=== PATIENT | female | born 1955 | race Caucasian/White ===

== ENCOUNTER 2019-12-19 17:37 | Emergency (ER) | payer MEDICARE, MEDICAID, SELFPAY ==
[2019-12-19] VITALS (7 sets, daily range): BP systolic 124–180; BP diastolic 72–108; PULSE 87–109; RESP 16–18; TEMP 37.6–38.4; O2SAT 90–98
--- NOTE | 2019-12-19 17:54 | CTR_ITS ---
PROCEDURE INFORMATION: Exam: CT Abdomen And Pelvis Without Contrast Exam date and time: 12/19/2019 7:13 PM Age: 64 years old Clinical indication: Abdominal pain; Generalized; Additional info: Fever TECHNIQUE: Imaging protocol: Computed tomography of the abdomen and pelvis without contrast. Radiation optimization: All CT scans at this facility use at least one of these dose optimization techniques: automated exposure control; mA and/or kV adjustment per patient size (includes targeted exams where dose is matched to clinical indication); or iterative reconstruction. COMPARISON: No relevant prior studies available. RADIATION DOSE METRICS: Total DLP (mGy-cm): 671.98 FINDINGS: Lungs: There is bibasilar ground-glass opacity compatible with atelectasis versus mild pneumonitis. Liver: Unremarkable.No mass. Gallbladder and bile ducts: Normal. No calcified stones. No ductal dilation. Pancreas: Normal. No ductal dilation. Spleen: Normal. No splenomegaly. Adrenals: Normal. No mass. Kidneys and ureters: The right kidney is normal. There is moderate left hydronephrosis. There is a 4 mm calculus left ureter image 44 at the level of the L3 vertebral body. No additional calculi are identified in the kidneys ureters or bladder. Stomach and bowel: There is no evidence of intestinal perforation or obstruction. There is no evidence of intestinal perforation or obstruction. There is no evidence of colitis/diverticulitis. Appendix: A normal appendix is identified. Intraperitoneal space: Unremarkable. No free air. No significant fluid collection. Vasculature: Unremarkable.No abdominal aortic aneurysm. Lymph nodes: Unremarkable.No enlarged lymph nodes. Bladder: Unremarkable as visualized. Reproductive: Unremarkable as visualized. Bones/joints: There is severe degenerative changes in the lower lumbar spine. There is degenerative grade 1 spondylolisthesis of L5 on S1. No acute bony fracture. Soft tissues: There is a fat-containing umbilical hernia. CT/CT abdomen pelvis wo con [id number] IMPRESSION: 1. There is bibasilar ground-glass opacity compatible with atelectasis versus mild pneumonitis. 2. Moderate left hydronephrosis with a 4 mm calculus mid left ureter. Radiation Dose CTDIVOL = (mGy): DLP = 671.98 (mGy-cm)
--- NOTE | 2019-12-19 17:54 | XRR_ITS ---
PROCEDURE INFORMATION: Exam: XR Chest, 1 View Exam date and time: 12/19/2019 7:32 PM Age: 64 years old Clinical indication: Fever TECHNIQUE: Imaging protocol: XR of the chest Views: Frontal portable upright view of the chest. COMPARISON: No relevant prior studies available. FINDINGS: Lungs: The lungs are clear bilaterally. The pulmonary vasculature is normal. Pleural space: No pleural effusion. No pneumothorax. Heart/Mediastinum: The heart is normal in size and contour. Bones/joints: Degenerative disk disease is present at mid-lower thoracic spine disk levels. XR/XR chest 1V portable [id number] IMPRESSION: No acute cardiopulmonary abnormality identified.
--- NOTE | 2019-12-19 17:58 | ED_ITS ---
HPI - Abdominal Pain General: Chief Complaint: Abdominal Pain Stated Complaint: ABDOMINAL PAIN Time Seen by Provider: 12/19/19 17:42 Source: patient and EMS Mode of arrival: EMS Limitations: no limitations History of Present Illness: HPI narrative: 64-year-old female states she had abdominal pain over the last 2 days. She states she seen at [facility] 2 days ago and was diagnosed with a kidney stone and seen there yesterday and diagnosed with a UTI. Patient is currently on oral antibiotics. States her pain is worsened and her urine is gotten much darker had a temperature of 101 today. She has had some nausea but no vomiting. Associated Symptoms: Reports dysuria and fever(s) Review of Systems Const: Reports: fever(s) Eyes: Denies: blurry vision or eye discomfort ENMT: Denies: throat pain or dental pain Card: Denies: chest pain Resp: Denies: dyspnea GI: Reports: abdominal pain : Reports: flank pain and dysuria Musc: Denies: neck pain or back pain Skin/Breast: Denies: rash Neuro: Denies: headache(s) Psych: Denies: depression Jose/Lymph: Denies: easy bruising All/Imm: Denies: urticaria PFSH ED 2 PFSH: Medical History Generalized anxiety disorder Major depressive disorder, recurrent, moderate Social History Smoking and tobacco status: never smoked Physical Exam Const: COMMON NORMALS: no acute distress, patient oriented x3 and healthy appearing HENMT: COMMON NORMALS: normocephalic and atraumatic HEAD & SCALP: normocephalic and atraumatic Eye: COMMON NORMALS: Equal, round and reactive pupils present and EOMs intact bilaterally PUPIL: Yes Equal, round and reactive pupils present Neck/C-Spine: COMMON NORMALS: full ROM and supple Chest: COMMONS NORMALS: normal inspection of the chest and normal palpation of entire chest wall Resp: COMMON NORMALS: normal respiratory effort, No retractions, No use of accessory muscles and clear to auscultation bilaterally AUSCULTATION: clear to auscultation bilaterally Cardio: COMMON NORMALS: regular rate, regular rhythm and No murmurs present (Cardio) RATE: regular rate RHYTHM: regular rhythm GI: COMMON NORMALS: Normal to inspection, nondistended, normoactive bowel sounds present, Soft to palpation and no masses PALPATION: Yes Soft to palpation and Yes Tenderness to palpation present (GI) Details: LLQ Extremity: COMMON NORMALS: normal to inspection and full ROM Neuro: COMMON NORMALS: patient oriented x3, moves all extremities and no focal motor deficits Psych: COMMON NORMALS: mental status grossly normal, Normal thought process present and cooperative THOUGHT PROCESS: Normal thought process present Skin: COMMON NORMALS: no rashes or lesions noted and no wounds GENERAL SKIN EXAM: no rashes or lesions noted Course Vital Signs: Vital signs: Vital Signs Temperature 99.6 F 12/19/19 21:11 Pulse Rate 87 12/19/19 22:39 Respiratory Rate 16 12/19/19 22:39 Blood Pressure 124/72 12/19/19 22:39 Pulse Oximetry 97 12/19/19 22:39 MDM - Abdominal Pain MDM Narrative: Medical decision making narrative: Patient presents with a kidney stone along with urinary tract infection. Dr. Pizano currently is out of town until December 22 and will transfer to [facility] for higher level of care as patient does need a urologist for the stone as has not moved in 4 days and has an infection. Patient has been stable while here and given IV antibiotics. I spoke to hospitalist Dr. Blair at [facility] and will transfer there. Lab Data: Labs: Lab Results 12/19/19 12/19/19 12/19/19 Range/Units 18:16 18:16 18:16 WBC 10.1 H (4.0-10.0) 10^3/ uL RBC 4.23 (4.1-5.3) 10^6/u L Hgb 12.7 (11.5-15.3) g/dL Hct 39.0 (37.0-47.0) % MCV 92.2 (81-99) fL MCH 30.0 (28.0-34.0) pg MCHC 32.6 (30.0-36.0) g/dL RDW 12.2 (12.1-15.1) % Plt Count 255 (130-400) 10^3/c mm MPV 9.5 (7.4-10.4) fL Neut % (Auto) 80.2 % Lymph % (Auto) 9.8 % [place] % (Auto) 9.5 % Eos % (Auto) 0.0 % Baso % (Auto) 0.2 % Neut # (Auto) 8.09 H (1.8-7.7) 10^3/u L Lymph # (Auto) 1.0 (0.8-4.8) 10^3/u L [place] # (Auto) 1.0 H (0.2-0.9) 10^3/u L Eos # (Auto) 0.0 (0.0-0.8) 10^3/u L Baso # (Auto) 0.0 (0.0-0.1) 10^3/u L Nucleated RBC % (a uto) 0 % Nucleated RBCs # 0.0 /100WBC Sodium 134 L (136-145) mmol/L Potassium 4.2 (3.5-5.1) mmol/L Chloride 97 L (98-107) mmol/L Carbon Dioxide 25 (22-29) mmol/L Anion Gap 16.2 (5-19) BUN 15 (8-23) mg/dL Creatinine 1.0 H (0.5-0.9) mg/dL GFR Calculation 55.6 L (90-130) mL/min Glucose 136 H (65-115) mg/dL Calculated Osmolal ity 276 L (285-295) mOsm/k g Lactate 1.2 (0.5-2.2) mmol/L Calcium 9.7 (8.5-10.5) mg/dL Total Bilirubin 0.4 (0.15-1.2) mg/dL AST 26 (0-32) U/L ALT 25 (0-33) U/L Alkaline Phosphata se 123 H (35-105) IU/L Total Protein 7.5 (6.6-8.7) g/dL Albumin 4.1 (3.5-5.2) g/dL Globulin 3.4 (1.3-4.6) g/dL Lipase 28 (13-60) U/L Urine Color (Yellow) Urine Appearance (CLEAR) Urine pH (5-7) Ur Specific Gravit y (1.005-1.030) Urine Protein (Negative) Urine Glucose (UA) (Normal) Urine Ketones (Negative) Urine Blood (Negative) Urine Nitrate (Negative) Urine Bilirubin (NEGATIVE) Urine Urobilinogen (Negative) mg/dL Ur Leukocyte Lory ase (Negative) Urine RBC (0-2) /hpf Urine WBC (0-5) /hpf Ur Squamous Epith Cells (0-5) Amorphous Sediment Urine Bacteria (NONE) 12/19/19 Range/Units 20:40 WBC (4.0-10.0) 10^3/ uL RBC (4.1-5.3) 10^6/u L Hgb (11.5-15.3) g/dL Hct (37.0-47.0) % MCV (81-99) fL MCH (28.0-34.0) pg MCHC (30.0-36.0) g/dL RDW (12.1-15.1) % Plt Count (130-400) 10^3/c mm MPV (7.4-10.4) fL Neut % (Auto) % Lymph % (Auto) % [place] % (Auto) % Eos % (Auto) % Baso % (Auto) % Neut # (Auto) (1.8-7.7) 10^3/u L Lymph # (Auto) (0.8-4.8) 10^3/u L [place] # (Auto) (0.2-0.9) 10^3/u L Eos # (Auto) (0.0-0.8) 10^3/u L Baso # (Auto) (0.0-0.1) 10^3/u L Nucleated RBC % (a uto) % Nucleated RBCs # /100WBC Sodium (136-145) mmol/L Potassium (3.5-5.1) mmol/L Chloride (98-107) mmol/L Carbon Dioxide (22-29) mmol/L Anion Gap (5-19) BUN (8-23) mg/dL Creatinine (0.5-0.9) mg/dL GFR Calculation (90-130) mL/min Glucose (65-115) mg/dL Calculated Osmolal ity (285-295) mOsm/k g Lactate (0.5-2.2) mmol/L Calcium (8.5-10.5) mg/dL Total Bilirubin (0.15-1.2) mg/dL AST (0-32) U/L ALT (0-33) U/L Alkaline Phosphata se (35-105) IU/L Total Protein (6.6-8.7) g/dL Albumin (3.5-5.2) g/dL Globulin (1.3-4.6) g/dL Lipase (13-60) U/L Urine Color Yellow (Yellow) Urine Appearance Cloudy (CLEAR) Urine pH 5 (5-7) Ur Specific Gravit y 1.020 (1.005-1.030) Urine Protein Neg (Negative) Urine Glucose (UA) Norm (Normal) Urine Ketones 2+ H (Negative) Urine Blood 3+ H (Negative) Urine Nitrate Negative (Negative) Urine Bilirubin Neg (NEGATIVE) Urine Urobilinogen Norm (Negative) mg/dL Ur Leukocyte Lory ase 2+ H (Negative) Urine RBC 5-10 H (0-2) /hpf Urine WBC 15-25 H (0-5) /hpf Ur Squamous Epith Cells 15-25 H (0-5) Amorphous Sediment Not Reportable Urine Bacteria 1+ H (NONE) Imaging Data ^: CT Abd/Pel: Radiologist's impression: [place] [address] CT Scan Report Signed Patient: Ijeoma Schroeder Unit #: [id number] : 1955 Age/Sex: 64 / F ADM Date: 12/19/19 Loc: ER Room/Bed: Attending Dr: Ordering Provider/Ordering MD: Jules Manning MD Date of Service: 12/19/19 Procedure(s): CT abdomen pelvis [facility] [address] Accession Number(s): [id number] Report Number: [id number] PROCEDURE INFORMATION: Exam: CT Abdomen And Pelvis Without Contrast Exam date and time: 12/19/2019 7:13 PM Age: 64 years old Clinical indication: Abdominal pain; Generalized; Additional info: Fever TECHNIQUE: Imaging protocol: Computed tomography of the abdomen and pelvis without contrast. Radiation optimization: All CT scans at this facility use at least one of these dose optimization techniques: automated exposure control; mA and/or kV adjustment per patient size (includes targeted exams where dose is matched to clinical indication); or iterative reconstruction. COMPARISON: No relevant prior studies available. RADIATION DOSE METRICS: Total DLP (mGy-cm): 671.98 FINDINGS: Lungs: There is bibasilar ground-glass opacity compatible with atelectasis versus mild pneumonitis. Liver: Unremarkable.No mass. Gallbladder and bile ducts: Normal. No calcified stones. No ductal dilation. Pancreas: Normal. No ductal dilation. Spleen: Normal. No splenomegaly. Adrenals: Normal. No mass. Kidneys and ureters: The right kidney is normal. There is moderate left hydronephrosis. There is a 4 mm calculus left ureter image 44 at the level of the L3 vertebral body. No additional calculi are identified in the kidneys ureters or bladder. Stomach and bowel: There is no evidence of intestinal perforation or obstruction. There is no evidence of intestinal perforation or obstruction. There is no evidence of colitis/diverticulitis. Appendix: A normal appendix is identified. Intraperitoneal space: Unremarkable. No free air. No significant fluid collection. Vasculature: Unremarkable.No abdominal aortic aneurysm. Lymph nodes: Unremarkable.No enlarged lymph nodes. Bladder: Unremarkable as visualized. Reproductive: Unremarkable as visualized. Bones/joints: There is severe degenerative changes in the lower lumbar spine. There is degenerative grade 1 spondylolisthesis of L5 on S1. No acute bony fracture. Soft tissues: There is a fat-containing umbilical hernia. CT/CT abdomen pelvis wo con [id number] IMPRESSION: 1. There is bibasilar ground-glass opacity compatible with atelectasis versus mild pneumonitis. 2. Moderate left hydronephrosis with a 4 mm calculus mid left ureter. Discharge Plan Discharge Patient Disposition: Xfer Other Clinical Impression: Cystitis, Kidney stone Condition: Stable Coding Level of Care Code ED Product Safety Administrator for Chg Fwd Exam Comprehensive
[2019-12-19 18:30] LABS: Basophils % 0.2 %; Hemoglobin 12.7 g/dL (11.5-15.3); Lymphocytes % 9.8 %; Mean Corpuscular HGB Conc 32.6 g/dL (30.0-36.0); Mean Corpuscular Volume 92.2 fL (81-99); Mean Platelet Volume 9.5 fL (7.4-10.4); Monocytes % 9.5 %; Neutrophils # 8.09 10^3/uL (1.8-7.7); Neutrophils % 80.2 %; Nucleated Red Blood Cells % 0 %; Platelet Count 255 10^3/cmm (130-400); Red Blood Count 4.23 10^6/uL (4.1-5.3); Red Cell Distribution Width 12.2 % (12.1-15.1); White Blood Count 10.1 10^3/uL (4.0-10.0)
[2019-12-19] MEDS: sodium chloride 0.9% 1,000 ML 999 ML IV (18:36)
[2019-12-19 18:43] LABS: Alanine Aminotransferase 25 U/L (0-33); Albumin Level 4.1 g/dL (3.5-5.2); Alkaline Phosphatase 123 IU/L (35-105); Anion Gap 16.2 (5-19); Aspartate Amino Transferase 26 U/L (0-32); Blood Urea Nitrogen 15 mg/dL (8-23); Calcium 9.7 mg/dL (8.5-10.5); Carbon Dioxide 25 mmol/L (22-29); Chloride 97 mmol/L (98-107); Globulin 3.4 g/dL (1.3-4.6); Glomerular Filtration Rate 55.6 mL/min (90-130); Glucose 136 mg/dL (65-115); Lipase 28 U/L (13-60); Osmolality Calculated 276 mOsm/kg (285-295); Potassium 4.2 mmol/L (3.5-5.1); Sodium 134 mmol/L (136-145); Total Bilirubin 0.4 mg/dL (0.15-1.2); Total Protein 7.5 g/dL (6.6-8.7)
[2019-12-19 18:44] LABS: Lactate (Lactic Acid level) 1.2 mmol/L (0.5-2.2)
[2019-12-19] MEDS: morphine 4 mg/mL SDV 1 mL IVP (20:32)
[2019-12-19] MEDS: ondansetron 2 mg/ML SDV 2 mL 4 MG IVP (20:33)
[2019-12-19 21:11] LABS: Glucose Urine UA Norm (Normal); Ketones Urine 2+ (Negative); Protein Urine Neg (Negative); Urine Appearance Cloudy (CLEAR); Urine Color Yellow (Yellow); pH Urine 5 (5-7)
[2019-12-19 21:12] LABS: Add Urine Microscopic? YES; Bilirubin Urine Neg (NEGATIVE); Blood Urine 3+ (Negative); Leukocyte Esterase Urine 2+ (Negative); Nitrate Urine Negative (Negative); Urobilinogen Urine Norm (Negative)
[2019-12-19 21:14] LABS: Add Urine Culture? No; Bacteria Urine 1+; Squamous Epithelial Cell Urine 15-25 (0-5); WBC Urine 15-25 /hpf (0-5)
[2019-12-19] MEDS: cefTRIAXone 1,000 MG in sodium chloride 0.9% (plus) 50 ML 100 MG IV (22:40)
[2019-12-20 00:16] VITALS: BP 124/91; PULSE 78; RESP 16; O2SAT 97
[2019-12-20 00:51] VITALS: BP 130/80
== END 2019-12-20 00:58 | disposition other institution (70) ==
PROVIDERS: Emergency Provider Emergency Medicine
DX: N30.90 Cystitis, unspecified without hematuria (principal); N20.0 Calculus of kidney
CPT/HCPCS: 12345; 71045; 74176; 80053; 81001; 81003; 83605; 83690; 85025; 87040; 87086; 96365; 96375; 99283; 99285; J0696; J2270; J2405; J7030

== ENCOUNTER → 2020-01-07 09:37 | Outpatient (BNVA) | payer MEDICARE, OTHER, SELFPAY | PROVIDERS: Visit Provider Nurse Practitioner Family | DX: E78.5 Hyperlipidemia, unspecified (principal) | CPT/HCPCS: 80053; 80061 ==

== ENCOUNTER → 2020-01-14 07:47 | Outpatient (BNVA) | payer MEDICARE, SELFPAY | PROVIDERS: Visit Provider Nurse Practitioner | DX: F41.1 Generalized anxiety disorder (principal); F33.1 Major depressive disorder, recurrent, moderate | CPT/HCPCS: 90832; 99213 ==

== ENCOUNTER 2020-04-02 14:30 | Outpatient (CLI) | payer MEDICARE, MEDICAID, SELFPAY ==
--- NOTE | 2020-04-02 14:39 | CT_ITS ---
WS: [id number] CT scan of the head, 04/02/2020 Clinical Data: R51.9 - Headache, unspecified Comparison: None. DLP: 992.[address] scans at [facility] use at least one of these dose optimization techniques: automat ed exposure control; mA and/or kV adjustment per patient size (includes targeted exams where dose is matched to clinical indication); or iterative reconstruction. Findings: The ventricular system is moderately dilated without shift. No recent infarct or hemorrhage is seen. There are no abnormal intracerebral masses. The cerebellum and brainstem are not remarkable. Bony windows of the skull and skull base show no fractures or erosions. The mastoid air cells, paralegal internship al auditory canals, sella turcica, intraorbital contents, and paranasal sinuses are unremarkable. CT/CT head wo con* [id number] Impression: Mild cerebral atrophy.
== END 2020-04-02 14:31 | disposition home or self-care (01) ==
LOC: RADWPI 14:35
PROVIDERS: PCP Nurse Practitioner Family; Visit Provider Nurse Practitioner Family
DX: R51.9 Headache, unspecified (principal)
CPT/HCPCS: 70450

== ENCOUNTER 2020-04-22 15:29 | Outpatient (CLI) | payer MEDICARE, MEDICAID, SELFPAY ==
--- NOTE | 2020-04-22 15:00 | MM_ITS ---
WS: [id number] BILATERAL DIGITAL SCREENING MAMMOGRAPHY WITH CAD CLINICAL INFORMATION: screening mammogram HISTORY: Screening mammogram. No current complaints. COMPARISON: None. TECHNIQUE: Bilateral CC and MLO views. FINDINGS: The breasts are composed of heterogeneous fibroglandular density tissue, which can limit the detectio n of small underlying mass lesions. No suspicious mass, asymmetry, calcifications, or architectural d istortion. No evidence of malignancy. Benign punctate calcifications. Incidental intramammary lymph n odes. MM/[place] [id number] IMPRESSION: BI-RADS: 2-Benign FOLLOW UP: 1 Year Follow-up Recommend return to annual screening mammography.
== END 2020-04-22 15:30 | disposition home or self-care (01) ==
LOC: RADSHAW 15:34
PROVIDERS: PCP Nurse Practitioner Family; Visit Provider Nurse Practitioner Family
DX: Z12.31 Encounter for screening mammogram for malignant neoplasm of breast (principal)
CPT/HCPCS: 77067

== ENCOUNTER → 2020-05-14 10:41 | Outpatient (BNVA) | payer MEDICARE, MEDICAID, SELFPAY | PROVIDERS: PCP Nurse Practitioner Family; Referring Provider Nurse Practitioner Family; Visit Provider Anesthesiology | DX: M50.30 Other cervical disc degeneration, unspecified cervical region (principal); M51.36 Other intervertebral disc degeneration, lumbar region; M47.817 Spondylosis without myelopathy or radiculopathy, lumbosacral region; M54.9 Dorsalgia, unspecified | CPT/HCPCS: 99204; 99205 ==

== ENCOUNTER → 2020-06-09 10:52 | Outpatient (BNVA) | payer MEDICARE, MEDICAID, SELFPAY | PROVIDERS: PCP Nurse Practitioner Family; Visit Provider Anesthesiology | DX: G89.29 Other chronic pain (principal); M51.36 Other intervertebral disc degeneration, lumbar region; M47.817 Spondylosis without myelopathy or radiculopathy, lumbosacral region; M50.30 Other cervical disc degeneration, unspecified cervical region; M54.9 Dorsalgia, unspecified; Z79.891 Long term (current) use of opiate analgesic | CPT/HCPCS: 80061; 83036; 99214 ==

== ENCOUNTER → 2020-07-15 09:23 | Outpatient (BNVA) | payer MEDICARE, MEDICAID, SELFPAY ==
[2020-06-17 14:32] VITALS: BP 136/88; BMI 27.9
== END ==
PROVIDERS: PCP Nurse Practitioner Family; Visit Provider Anesthesiology
DX: M51.36 Other intervertebral disc degeneration, lumbar region (principal); M54.9 Dorsalgia, unspecified; M50.30 Other cervical disc degeneration, unspecified cervical region; M47.817 Spondylosis without myelopathy or radiculopathy, lumbosacral region; Z79.891 Long term (current) use of opiate analgesic
CPT/HCPCS: 99213

== ENCOUNTER → 2020-07-21 07:49 | Outpatient (BNVA) | payer MEDICARE, MEDICAID, SELFPAY ==
[2020-07-15 13:55] VITALS: BP 136/88; BMI 27.9
== END ==
PROVIDERS: PCP Nurse Practitioner Family; Visit Provider Nurse Practitioner
DX: F33.1 Major depressive disorder, recurrent, moderate (principal); F41.1 Generalized anxiety disorder; F43.12 Post-traumatic stress disorder, chronic; F90.0 Attention-deficit hyperactivity disorder, predominantly inattentive type
CPT/HCPCS: 99214

== ENCOUNTER → 2020-07-30 09:45 | Outpatient (BNVA) | payer MEDICARE, MEDICAID, SELFPAY ==
[2020-07-15 13:55] VITALS: BP 136/88; BMI 27.9
== END ==
PROVIDERS: PCP Nurse Practitioner Family; Visit Provider Anesthesiology
DX: G89.29 Other chronic pain (principal); M54.5 Low back pain; M70.61 Trochanteric bursitis, right hip; Y93.9 Activity, unspecified; Z79.891 Long term (current) use of opiate analgesic
CPT/HCPCS: 20610; 62323; 77002; 77003; J1030; J3490

== ENCOUNTER → 2020-08-18 09:00 | Outpatient (BNVA) | payer MEDICARE, MEDICAID, SELFPAY ==
[2020-07-15 13:55] VITALS: BP 136/88; BMI 27.9
== END ==
PROVIDERS: PCP Nurse Practitioner Family; Visit Provider Nurse Practitioner
DX: F33.1 Major depressive disorder, recurrent, moderate (principal); F41.1 Generalized anxiety disorder; F90.0 Attention-deficit hyperactivity disorder, predominantly inattentive type; F43.12 Post-traumatic stress disorder, chronic
CPT/HCPCS: 99214

== ENCOUNTER → 2020-09-18 13:01 | Outpatient (BNVA) | payer MEDICARE, MEDICAID, SELFPAY ==
[2020-07-15 13:55] VITALS: BP 136/88; BMI 27.9
== END ==
PROVIDERS: PCP Nurse Practitioner Family; Visit Provider Anesthesiology
DX: M51.36 Other intervertebral disc degeneration, lumbar region (principal); M54.9 Dorsalgia, unspecified; M47.817 Spondylosis without myelopathy or radiculopathy, lumbosacral region; M50.30 Other cervical disc degeneration, unspecified cervical region; Z79.891 Long term (current) use of opiate analgesic
CPT/HCPCS: 99214

== ENCOUNTER → 2020-10-13 09:01 | Outpatient (BNVA) | payer MEDICARE, MEDICAID, SELFPAY ==
[2020-07-15 13:55] VITALS: BP 136/88; BMI 27.9
== END ==
PROVIDERS: PCP Nurse Practitioner Family; Referring Provider Nurse Practitioner Family; Visit Provider Specialist
DX: F33.1 Major depressive disorder, recurrent, moderate (principal); F41.1 Generalized anxiety disorder; F43.12 Post-traumatic stress disorder, chronic; F90.0 Attention-deficit hyperactivity disorder, predominantly inattentive type; R41.3 Other amnesia; H81.10 Benign paroxysmal vertigo, unspecified ear; R51.9 Headache, unspecified
CPT/HCPCS: 99214; 96116; 99205

== ENCOUNTER → 2020-11-17 09:42 | Outpatient (BNVA) | payer MEDICARE, MEDICAID, SELFPAY ==
[2020-07-15 13:55] VITALS: BP 136/88; BMI 27.9
== END ==
PROVIDERS: PCP Nurse Practitioner Family; Visit Provider Anesthesiology
DX: G89.29 Other chronic pain (principal); M51.36 Other intervertebral disc degeneration, lumbar region; M47.817 Spondylosis without myelopathy or radiculopathy, lumbosacral region; M54.9 Dorsalgia, unspecified; M50.30 Other cervical disc degeneration, unspecified cervical region; Z79.891 Long term (current) use of opiate analgesic
CPT/HCPCS: 99213; 99214

== ENCOUNTER → 2020-11-18 07:24 | Outpatient (BNVA) | payer MEDICARE, MEDICAID, SELFPAY ==
[2020-11-17 10:15] VITALS: BP 136/88; BMI 27.9
== END ==
PROVIDERS: PCP Nurse Practitioner Family; Visit Provider Nurse Practitioner
DX: F41.1 Generalized anxiety disorder (principal); F33.1 Major depressive disorder, recurrent, moderate
CPT/HCPCS: 99214

== ENCOUNTER → 2020-12-15 09:26 | Outpatient (BNVA) | payer MEDICARE, MEDICAID, SELFPAY ==
[2020-12-14 07:54] VITALS: BP 136/88; BMI 27.9
== END ==
PROVIDERS: PCP Nurse Practitioner Family; Visit Provider Nurse Practitioner Family
DX: R53.83 Other fatigue (principal); R35.0 Frequency of micturition; M51.36 Other intervertebral disc degeneration, lumbar region; M47.817 Spondylosis without myelopathy or radiculopathy, lumbosacral region
CPT/HCPCS: 80053; 81000; 84443; 85025

== ENCOUNTER → 2020-12-16 07:13 | Outpatient (BNVA) | payer MEDICARE, MEDICAID, SELFPAY ==
[2020-12-14 07:54] VITALS: BP 136/88; BMI 27.9
== END ==
PROVIDERS: PCP Nurse Practitioner Family; Visit Provider Nurse Practitioner
DX: F41.1 Generalized anxiety disorder (principal); F33.1 Major depressive disorder, recurrent, moderate; F90.0 Attention-deficit hyperactivity disorder, predominantly inattentive type
CPT/HCPCS: 99214

== ENCOUNTER → 2021-01-07 09:28 | Outpatient (BNVA) | payer MEDICARE, MEDICAID, SELFPAY ==
[2020-12-14 07:54] VITALS: BP 136/88; BMI 27.9
== END ==
PROVIDERS: PCP Nurse Practitioner Family; Visit Provider Anesthesiology
DX: M70.62 Trochanteric bursitis, left hip (principal); Y93.9 Activity, unspecified; Z79.891 Long term (current) use of opiate analgesic; Z87.891 Personal history of nicotine dependence; F41.1 Generalized anxiety disorder; F90.0 Attention-deficit hyperactivity disorder, predominantly inattentive type
CPT/HCPCS: 20610; 77002; 80061; 83036; J1030; J3490

== ENCOUNTER → 2021-01-28 11:02 | Outpatient (BNVA) | payer MEDICARE, MEDICAID, SELFPAY ==
[2021-01-08 11:31] VITALS: BP 138/83; BMI 26.3
== END ==
PROVIDERS: PCP Nurse Practitioner Family; Visit Provider Anesthesiology
DX: G89.29 Other chronic pain (principal); M51.36 Other intervertebral disc degeneration, lumbar region; M47.817 Spondylosis without myelopathy or radiculopathy, lumbosacral region; M50.30 Other cervical disc degeneration, unspecified cervical region; Z79.891 Long term (current) use of opiate analgesic
CPT/HCPCS: 99214

== ENCOUNTER → 2021-02-09 10:06 | Outpatient (BNVA) | payer OTHER, SELFPAY ==
[2021-01-28 11:31] VITALS: BP 138/83; BMI 26.3
== END ==
PROVIDERS: PCP Nurse Practitioner Family; Visit Provider Nurse Practitioner Family
DX: R79.89 Other specified abnormal findings of blood chemistry (principal); E03.9 Hypothyroidism, unspecified
CPT/HCPCS: 84443

== ENCOUNTER 2021-03-31 10:43 | Outpatient (CLI) | payer MEDICARE, MEDICAID, SELFPAY ==
[2021-01-28 11:31] VITALS: BP 138/83; BMI 26.3
--- NOTE | 2021-03-31 10:15 | US_ITS ---
WS: [id number] THYROID ULTRASOUND HISTORY: R79.89 - Other specified abnormal findings of blood chemi... COMPARISON: None available. Right lobe: 1.8 cm x 1.6 cm x 4.1 cm (w x ap x l). Volume: 6.3 cm3. Mildly enlarged heterogeneous gland. Nearly isoechoic nodule in the mid gland measures 1.0 x 1.1 x 1.3 cm. Increased peripheral vascularit y. No calcification. There is an additional hyperechoic nodule in the inferior gland measuring 0.6 x 0.5 x 0.6 cm. No calcifications. Left lobe: 1.4 cm x 1.6 cm x 5.3 cm (w x ap x l). Volume: 5.9 cm3. Normal size gland. Dense calcification in the superior pole with posterior shadowing. Posterior shado wing is obscuring the thyroid or any nodule posteriorly. This area of abnormality measures 0.8 x 0.1 x 1.0 cm. Isthmus: 0.3 cm. US/US thyroid [id number] IMPRESSION: 1. Bilateral thyroid nodules. The most concerning nodule is in the superior po le of the LEFT gland which contains very dense calcification. The dense calcifi cation shadowing is obscuring the posterior nodule. Recommend yearly evaluation of the thyroid to evaluate for any progression in size. 2. No adenopathy.
== END 2021-03-31 10:44 | disposition home or self-care (01) ==
LOC: RAD 10:47
PROVIDERS: PCP Nurse Practitioner Family; Visit Provider Nurse Practitioner Family
DX: R79.89 Other specified abnormal findings of blood chemistry (principal); E04.2 Nontoxic multinodular goiter
CPT/HCPCS: 76536

== ENCOUNTER → 2021-05-10 07:51 | Outpatient (BNVA) | payer MEDICARE, OTHER, SELFPAY ==
[2021-01-28 11:31] VITALS: BP 138/83; BMI 26.3
== END ==
PROVIDERS: PCP Nurse Practitioner Family; Visit Provider Nurse Practitioner
DX: F41.1 Generalized anxiety disorder (principal); F33.1 Major depressive disorder, recurrent, moderate; F90.0 Attention-deficit hyperactivity disorder, predominantly inattentive type; F43.12 Post-traumatic stress disorder, chronic
CPT/HCPCS: 99214

== ENCOUNTER → 2021-05-20 11:17 | Outpatient (BNVA) | payer MEDICARE, MEDICAID, SELFPAY ==
[2021-01-28 11:31] VITALS: BP 138/83; BMI 26.3
== END ==
PROVIDERS: PCP Nurse Practitioner Family; Visit Provider Nurse Practitioner Family
DX: E03.9 Hypothyroidism, unspecified (principal)
CPT/HCPCS: 84443

== ENCOUNTER → 2021-06-08 09:43 | Outpatient (BNVA) | payer MEDICARE, MEDICAID, SELFPAY ==
[2021-01-28 11:31] VITALS: BP 138/83; BMI 26.3
== END ==
PROVIDERS: PCP Nurse Practitioner Family; Visit Provider Anesthesiology
DX: G89.29 Other chronic pain (principal); M51.36 Other intervertebral disc degeneration, lumbar region; M47.817 Spondylosis without myelopathy or radiculopathy, lumbosacral region; M50.30 Other cervical disc degeneration, unspecified cervical region; Z79.891 Long term (current) use of opiate analgesic
CPT/HCPCS: 99214

== ENCOUNTER → 2021-06-14 10:00 | Outpatient (BNVA) | payer MEDICARE, MEDICAID, SELFPAY ==
[2021-01-28 11:31] VITALS: BP 138/83; BMI 26.3
== END ==
PROVIDERS: PCP Nurse Practitioner Family; Visit Provider Nurse Practitioner
DX: F41.1 Generalized anxiety disorder (principal); F33.1 Major depressive disorder, recurrent, moderate; F90.0 Attention-deficit hyperactivity disorder, predominantly inattentive type; F43.12 Post-traumatic stress disorder, chronic
CPT/HCPCS: 99214

== ENCOUNTER → 2021-07-27 14:19 | Outpatient (BNVA) | payer MEDICARE, MEDICAID, SELFPAY ==
[2021-06-29 14:55] VITALS: BP 138/83; BMI 26.3
== END ==
PROVIDERS: PCP Nurse Practitioner Family; Visit Provider Specialist
DX: F41.1 Generalized anxiety disorder (principal); F33.1 Major depressive disorder, recurrent, moderate; F90.0 Attention-deficit hyperactivity disorder, predominantly inattentive type; F07.81 Postconcussional syndrome
CPT/HCPCS: 96116; 99214

== ENCOUNTER → 2021-09-15 07:12 | Outpatient (BNVA) | payer MEDICARE, MEDICAID, OTHER, SELFPAY ==
[2021-06-29 14:55] VITALS: BP 138/83; BMI 26.3
== END ==
PROVIDERS: PCP Nurse Practitioner Family; Visit Provider Nurse Practitioner
DX: F90.0 Attention-deficit hyperactivity disorder, predominantly inattentive type (principal); F43.12 Post-traumatic stress disorder, chronic; F41.1 Generalized anxiety disorder; F33.1 Major depressive disorder, recurrent, moderate
CPT/HCPCS: 99214

== ENCOUNTER → 2021-11-10 07:36 | Outpatient (BNVA) | payer MEDICARE, MEDICAID, OTHER, SELFPAY ==
[2021-06-29 14:55] VITALS: BP 138/83; BMI 26.3
== END ==
PROVIDERS: PCP Nurse Practitioner Family; Visit Provider Nurse Practitioner
DX: F43.12 Post-traumatic stress disorder, chronic (principal); F90.0 Attention-deficit hyperactivity disorder, predominantly inattentive type; F41.1 Generalized anxiety disorder; F33.1 Major depressive disorder, recurrent, moderate
CPT/HCPCS: 99214

== ENCOUNTER → 2022-01-14 10:02 | Outpatient (BNVA) | payer MEDICARE, MEDICAID, OTHER, SELFPAY ==
[2021-06-29 14:55] VITALS: BP 138/83; BMI 26.3
== END ==
PROVIDERS: PCP Nurse Practitioner Family; Visit Provider Nurse Practitioner
DX: F19.10 Other psychoactive substance abuse, uncomplicated (principal); F90.0 Attention-deficit hyperactivity disorder, predominantly inattentive type; F43.12 Post-traumatic stress disorder, chronic; F41.1 Generalized anxiety disorder; F33.1 Major depressive disorder, recurrent, moderate
CPT/HCPCS: 80306

== ENCOUNTER 2022-01-22 06:23 | Emergency (ER) | payer MEDICARE, MEDICAID, SELFPAY ==
[2021-06-29 14:55] VITALS: BP 138/83; BMI 26.3
[2022-01-22 06:31] VITALS: BP 135/86; PULSE 68; RESP 21; TEMP 36.7; O2SAT 97; BMI 22.4
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
--- NOTE | 2022-01-22 06:39 | XRR_ITS ---
PROCEDURE INFORMATION: Exam: XR Chest Exam date and time: 01/22/2022 7:10 AM Age: 66 years old Clinical indication: Other: Weakness TECHNIQUE: Imaging protocol: Radiologic exam of the chest. Views: 1 view. COMPARISON: CR XR chest 1V portable [id number] 12/19/2019 7:22 PM FINDINGS: Lungs: Unremarkable. No consolidation. Pleural spaces: Unremarkable. No pleural effusion. No pneumothorax. Heart/Mediastinum: Stable cardiomediastinal silhouette. Bones/joints: Degenerative changes of the spine seen. XR/XR chest 1V portable [id number] IMPRESSION: No evidence of active cardiopulmonary disease.
--- NOTE | 2022-01-22 06:39 | ECG_ITS ---
[facility] Test Date: 2022-01-22 Pat Name: Ijeoma Schroeder Department: Room: Gender: Female Parts Clerk: : 1955 Requested By: Jason Mata Order Number: [id number] Rosey MD: Danette Royal M.D. Measurements Intervals [place] Rate: 64 P: 47 UT: 154 QRS: 14 QRSD: 86 T: 16 QT: 413 QTc: 426 Interpretive Statements SINUS RHYTHM No previous ECG available for comparison Electronically Signed On 01-22-2022 13:14:09 CDT by Danette Royal M.D. [id number]
[2022-01-22] MEDS: sodium chloride 0.9% 500 ML 999 ML IV (06:40)
[2022-01-22 07:08] LABS: Basophils % 0.2 %; Hematocrit 45.4 % (37.0-47.0); Hemoglobin 14.5 g/dL (11.5-15.3); Lymphocytes # 1.5 10^3/uL (0.8-4.8); Lymphocytes % 29.8 %; Mean Corpuscular HGB Conc 31.9 g/dL (30.0-36.0); Mean Corpuscular Hemoglobin 30.3 pg (28.0-34.0); Mean Platelet Volume 9.6 fL (7.4-10.4); Monocytes # 0.6 10^3/uL (0.2-0.9); Neutrophils % 56.8 %; Nucleated Red Blood Cells % 0 %; Platelet Count 268 10^3/cmm (130-400); Red Blood Count 4.78 10^6/uL (4.1-5.3); Red Cell Distribution Width 13.8 % (12.1-15.1); White Blood Count 4.9 10^3/uL (4.0-10.0)
[2022-01-22 07:23] LABS: INR 0.99 (0.8-1.2)
--- NOTE | 2022-01-22 07:27 | PC.NURSE ---
IV PLACED BY RONA STUART RN
[2022-01-22 07:30] VITALS: BP 114/74; PULSE 63; RESP 16; O2SAT 94
[2022-01-22 07:36] LABS: Alanine Aminotransferase 20 U/L (0-33); Albumin Level 4.3 g/dL (3.5-5.2); Alkaline Phosphatase 90 U/L (35-105); Anion Gap 17.1 (5-19); Aspartate Amino Transferase 21 U/L (0-32); Blood Urea Nitrogen 22 mg/dL (8-23); Calcium 9.7 mg/dL (8.5-10.5); Carbon Dioxide 24 mmol/L (22-29); Chloride 102 mmol/L (98-107); Creatinine Clr Calc Pharmacy 63.2285; Globulin 2.8 g/dL (1.3-4.6); Glomerular Filtration Rate 99.7 mL/min (90-130); Glucose 99 mg/dL (65-115); Osmolality Calculated 291 mOsm/kg (285-295); Potassium 4.1 mmol/L (3.5-5.1); Sodium 139 mmol/L (136-145); Total Bilirubin 0.2 mg/dL (0.15-1.2); Total Protein 7.1 g/dL (6.6-8.7)
[2022-01-22 07:41] LABS: Acetaminophen < 5.0 ug/mL (10-30); Alcohol Level < 10 mg/dL (0-10); Salicylate < 0.3 mg/dL (3-10)
[2022-01-22 07:57] LABS: Add Urine Microscopic? YES; Bilirubin Urine 1+ (Negative); Blood Urine Trace (Negative); Glucose Urine UA Norm (Normal); Ketones Urine 2+ (Negative); Leukocyte Esterase Urine 1+ (Negative); Nitrate Urine Negative (Negative); Protein Urine Trace (Negative); Urine Appearance Clear (CLEAR); Urine Color Yellow (Yellow); Urobilinogen Urine Norm (Negative); pH Urine 5 (5-7)
[2022-01-22 07:58] LABS: Add Urine Culture? Yes; Bacteria Urine TRACE /hpf; Hyaline Casts Urine 0-4 /lpf; Mucus Urine 4+ /hpf; RBC Urine 0-4 /hpf (0-2); Squamous Epithelial Cell Urine 0-4 /hpf (0-5); WBC Urine 40-55 /hpf (0-5)
[2022-01-22 08:00] VITALS: BP 123/70; PULSE 60; RESP 19
[2022-01-22 08:02] LABS: Amphetamines Screen Urine Negative (Negative); Barbiturates Screen Urine Negative (Negative); Benzodiazepines Screen Urine Positive (Negative); Cocaine Screen Urine Negative (Negative); Opiate Screen Urine Positive (Negative); PCP Screen Urine Negative (Negative); THC Screen Urine Negative (Negative)
[2022-01-22 09:30] VITALS: BP 103/78; PULSE 65; RESP 17
[2022-01-22 09:35] LABS: Adenovirus Not Detected (NOT DETECT); Chlamydia Pneumoniae Not Detected (NOT DETECT); Coronavirus 229E,HKU1,NL63,OC4 Not Detected (NOT DETECT); Human Metapneumovirus Not Detected (NOT DETECT); Human Rhinovirus/Enterovirus Not Detected (NOT DETECT); Influenza A Not Detected (NOT DETECT); Influenza A H1 Not Detected (NOT DETECT); Influenza A H1-2009 Not Detected (NOT DETECT); Influenza A H3 Not Detected (NOT DETECT); Influenza B Not Detected (NOT DETECT); Mycoplasma Pneumoniae Not Detected (NOT DETECT); Parainfluenza Virus Type 1 Not Detected (NOT DETECT); Parainfluenza Virus Type 2 Not Detected (NOT DETECT); Parainfluenza Virus Type 3 Not Detected (NOT DETECT); Parainfluenza Virus Type 4 Not Detected (NOT DETECT); Respiratory Syncytial Virus A Not Detected (NOT DETECT); Respiratory Syncytial Virus B Not Detected (NOT DETECT); SARS-COV-2 Detected (NOT DETECT)
== END 2022-01-22 10:14 | disposition home or self-care (01) ==
PROVIDERS: Emergency Provider Family Medicine; PCP Nurse Practitioner Family
DX: U07.1 COVID-19 (principal); F33.1 Major depressive disorder, recurrent, moderate
CPT/HCPCS: 71045; 80053; 80306; 80307; 81001; 84443; 85025; 85610; 87086; 87635; 93005; 99285; J7040

== ENCOUNTER 2022-01-23 17:37 | Emergency (ER) | payer MEDICARE, MEDICAID, SELFPAY ==
[2021-06-29 14:55] VITALS: BP 138/83; BMI 26.3
[2022-01-23 17:45] VITALS: BP 135/66; PULSE 72; RESP 16; TEMP 36.6; O2SAT 99; BMI 22.4
--- NOTE | 2022-01-23 17:56 | XRR_ITS ---
PROCEDURE INFORMATION: Exam: XR Chest Exam date and time: 01/23/2022 6:03 PM Age: 66 years old Clinical indication: Dyspnea; Additional info: Cough congestion. TECHNIQUE: Imaging protocol: Radiologic exam of the chest. Views: 1 view. COMPARISON: CR (CHEST, ) 01/22/2022 7:10 AM FINDINGS: Lungs: No consolidation. Pleural spaces: No pleural effusion. No pneumothorax. Heart/Mediastinum: No cardiomegaly. Bones/joints: Degenerative spine changes are noted. XR/XR chest 1V portable [id number] IMPRESSION: 1. No acute abnormality demonstrated. 2. There is no interval change from the prior examination.
[2022-01-23 18:37] LABS: SARS Covid-2 Antigen Positive (Negative)
--- NOTE | 2022-01-23 19:23 | W.ED.COVID ---
HPI - COVID General: Chief Complaint: COVID symptoms Stated Complaint: FLU LIKE SYMPTOMS Time Seen by Provider: 01/23/22 17:56 Triage information: No fever, cough or shortness of breath. No known COVID + exposure last 14 days History of Present Illness: 66 yo female patient presents to ER with flu like symptoms. Body aches chills and headache. Pt states she has had symptoms for 2 days/ Pt denies any significant PMH. Pt denies any chest pain or SOB. COVID 19 common symptoms: positive chills, body aches and headache(s); negative fever(s), non-productive cough, productive cough, dyspnea, fatigue, throat pain, nasal congestion, nausea, vomiting or diarrhea COVID 19 other sytmptoms: negative chest pain, confusion or dizziness COVID Results: SARS-CoV-2 Antigen (Rapid) Positive (Negative) H 01/23/22 18:09 SARS-CoV-2 (PCR) Detected (NOT DETECT) A 01/22/22 07:35 Coronavirus Type 229E (PCR) Not detected (NOT DETECT) 01/22/22 07:35 Review of Systems Const: Reports: chills and body aches; Denies: fever(s), change in appetite, change in weight, fatigue, malaise or diaphoresis Eyes: Denies: change in vision, blurry vision, blind spots, photophobia, eye discomfort, eye discharge, eye redness, floaters or seeing flashes ENMT: Denies: throat pain, uvular edema, enlarged tonsils, odynophagia, hoarseness, mouth pain, swelling of lips/tongue, oral sores, bleeding gums, dental pain, dry mouth, ear or mastoid pain, ear discharge, change in hearing, tinnitus, disequilibrium, nasal discharge, nasal congestion, post nasal drip or sinus pain Card: Denies: chest pain, palpitations, irregular heart rhythm, edema, swelling of feet/ankles, lightheadedness, syncope, pre-syncope, dyspnea on exertion, orthopnea, leg pain with exertion or acrocyanosis Resp: Denies: dyspnea, productive cough, non-productive cough, wheezing, stridor, pain on inspiration, change in phlegm color, hemoptysis or chest congestion GI: Denies: abdominal pain, nausea, vomiting, hematemesis, dysphagia, diarrhea, constipation, GI cramping, change in bowel habits or rectal pain : Denies: flank pain, difficulty voiding, dysuria, urinary frequency, urinary urgency, urinary hesitancy or hematuria Musc: Denies: neck pain, back pain, extremity pain, extremity swelling, joint pain, joint swelling, joint redness, joint warmth or deformity Skin/Breast: Denies: rash, pruritus, erythema, sores, new lesions, changes in skin color or dry skin Neuro: Reports: headache(s); Denies: numbness in extremities, weakness in extremities, sensory changes, lack of coordination, difficulty walking, frequent falls, dizziness, vertigo, confusion, behavioral changes, Slurred speech present, difficulty communicating thoughts or seizure-like activity Psych: Denies: anxiety, depression, suicidal ideation or homicidal ideation Endo: Denies: polyuria, polydipsia, tired all the time, cold intolerance, excessive sweating, flushing, hot flashes or heat intolerance Jose/Lymph: Denies: easy bruising, easy bleeding, petechiae, purpura, enlarged lymph nodes or tender lymph nodes All/Imm: Denies: urticaria, throat swelling, tongue swelling, facial swelling, acute wheezing or itchy eyes PFSH ED PFSH: Medical History Attention-deficit hyperactivity disorder, predominantly inattentive type Chronic narcotic use Chronic posttraumatic stress disorder Drug abuse, nondependent Encounter for narcotic contract discussion Facet arthritis of lumbosacral region Generalized anxiety disorder Hx of nephrolithotomy with removal of calculi Major depressive disorder, recurrent, moderate Narcotic use agreement exists Psychiatric care Trochanteric bursitis of left hip Trochanteric bursitis of right hip Surgical History History of carpal tunnel surgery Family History Father CAD (coronary artery disease) Mother Alzheimer disease Social History Smoking and tobacco status: never smoked Second hand smoke exposure: No Alcohol intake: former Adopted: No Caregiver/support person: No Lives independently: Yes Household members: none Housing: Apartment Marital status: Single Number of children: 0 Highest education level completed: Some College, No Degree 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 Current occupational status: retired and disabled Pets and animals: Yes Pets & animals: dog(s) History of recent travel: No Leisure activites: other Leisure activities details: ye chong being near water Current gender identity: Female Nunu/Zoroastrian: Congregation Special nunu needs: No Agree to transfusion: Yes Financial difficulty paying for basics: Not Very Hard Physical Exam Const: COMMON NORMALS: no acute distress, patient oriented x3, healthy appearing, alert and well nourished GENERAL APPEARANCE: cooperative, comfortable, well kempt and well developed; not ill appearing ORIENTATION/CONSCIOUSNESS: Yes awake, Yes oriented to person, Yes oriented to place and Yes oriented to time HENMT: COMMON NORMALS: normocephalic, atraumatic, hearing grossly normal bilaterally, external ears normal, EAC's normal, TM's normal bilaterally, Normal external nose present, Normal nasal mucous membranes and turbinates present and moist oral mucous membranes HEAD & SCALP: normal to inspection, normocephalic and atraumatic FACE & SINUS: normal facial exam, sinuses nontender and face symmetric NOSE: Normal external nose present, Normal nares present, Normal nasal mucous membranes and turbinates present, No nasal discharge present and Abnormal external nose present EXTERNAL EAR: Yes external ears normal and Yes mastoids normal EXTERNAL AUDITORY CANAL: EAC's normal TYMPANIC MEMBRANE: TM's normal bilaterally MOUTH: Normal oral and palatal mucosa present, lip normal, tongue normal and Normal salivary glands and ducts present THROAT: no uvular edema Eye: COMMON NORMALS: Equal, round and reactive pupils present, EOMs intact bilaterally and conjunctivae normal GENERAL EYE: appearance normal, both eyes and all related structures EYELID: eyelids normal CONJUNCTIVA: Yes conjunctivae normal SCLERA: sclerae normal CORNEA: Yes corneas normal PUPIL: Yes Equal, round and reactive pupils present Neck/C-Spine: COMMON NORMALS: full ROM, no lymphadenopathy, supple, no meningeal signs, no JVD and Thyroid normal GENERAL: Yes normal visual inspection and Yes trachea midline THYROID: Thyroid normal CERVICAL SPINE: Yes cervical ROM normal Lymph: LYMPHATIC: no lymphadenopathy noted and no lymphedema noted Chest: COMMONS NORMALS: normal inspection of the chest and normal palpation of entire chest wall Resp: COMMON NORMALS: normal respiratory effort, No retractions, No use of accessory muscles and clear to auscultation bilaterally EFFORT & INSPECTION: Yes able to speak in complete sentences and Yes symmetric chest movement AUSCULTATION: clear to auscultation bilaterally Cardio: COMMON NORMALS: no JVD, regular rate and regular rhythm RATE: regular rate RHYTHM: regular rhythm GI: COMMON NORMALS: Normal to inspection, nondistended, normoactive bowel sounds present, Soft to palpation, non-tender, No hepatosplenomegaly present, no masses and no bruits INSPECTION: Yes normal to inspection AUSCULTATION: Yes normoactive bowel sounds PALPATION: Yes Soft to palpation and Yes No hepatosplenomegaly present PERCUSSION: normal to percussion RECTAL EXAM: deferred : COMMON NORMALS: Yes no CVA tenderness, Yes normal external appearance, Yes normal appearance of the vagina, Yes normal appearance of the cervix, Yes No adnexal tenderness and Yes no masses BLADDER/KIDNEY EXAM: Yes no CVA tenderness Back/Pelvis: COMMON NORMALS: no CVA tenderness, thoracic and lumbar spine normal to inspection, no thoracic nor lumbar tenderness, thoraco-lumbar ROM normal and straight leg raise negative bilaterally THORACIC SPINE/UPPER BACK: Yes normal to inspection LUMBAR SPINE/LOWER BACK: Yes normal to inspection Extremity: COMMON NORMALS: normal to inspection, full ROM and capillary refill normal GENERAL: Yes normal exam except as noted Neuro: COMMON NORMALS: patient oriented x3, CN's II-XII intact bilaterally, moves all extremities, no focal motor deficits, no sensory deficits noted and gait normal SENSORIUM/ORIENTATION: Yes alert, Yes oriented to person, Yes oriented to place and Yes oriented to time MENINGEAL SIGNS: Yes no meningeal signs CRANIAL NERVES: Yes CN normal except as noted SPEECH: speech normal GAIT: Yes Normal gait present SENSORY EXAM: Yes extremities MOTOR EXAM: 5/5 motor strength present throughout Psych: COMMON NORMALS: mental status grossly normal, Normal thought process present, cooperative, normal affect, speech normal, activity/motor behavior normal, denies hallucinations, denies homicidal ideation and denies suicidal ideation APPEARANCE: Yes grossly normal and Yes well kempt ATTITUDE: Yes calm ACTIVITY/MOTOR BEHAVIOR: Yes appropriate eye contact SPEECH: Yes normal speech THOUGHT PROCESS: Normal thought process present THOUGHT CONTENT: Yes Normal thought content present ATTENTION/CONCENTRATION: Yes attention grossly intact MEMORY/COGNITION: Yes memory grossly intact INSIGHT: Good insight present (Psych) JUDGEMENT: Good judgement present (Psych) Skin: COMMON NORMALS: no rashes or lesions noted, no wounds, turgor normal, no jaundice, no petechiae and no mottling GENERAL SKIN EXAM: no rashes or lesions noted and turgor normal Course Vital Signs: Vital signs: Vital Signs Temperature 97.9 F 01/23/22 17:45 Pulse Rate 72 01/23/22 17:45 Respiratory Rate 16 01/23/22 17:45 Blood Pressure 135/66 01/23/22 17:45 Pulse Oximetry 99 01/23/22 17:45 Oxygen Delivery Me thod 01/23/22 17:45 MDM - COVID Medical Decision Making Patient is well appearing non toxic and in no acute distress. 66 yo female patient presents to ER with flu like symptoms. Body aches chills and headache. Pt states she has had symptoms for 2 days/ Pt denies any significant PMH. Pt denies any chest pain or SOB. Pt has no evidence of hypoxemia or meningeal irritation. Pt is covid positive. chest xray reveals no acute findings. I discussed home care and return precautions with patient Lab Data Radiology Impressions Chest X-Ray 01/23/22 17:56 IMPRESSION: 1. No acute abnormality demonstrated. 2. There is no interval change from the prior examination. Laboratory Results SARS-CoV-2 Ag (Rapid) Positive (Negative) H 01/23/22 18:09 SARS-CoV-2 Antigen (Rapid) Positive (Negative) H 01/23/22 18:09 SARS-CoV-2 (PCR) Detected (NOT DETECT) A 01/22/22 07:35 Coronavirus Type 229E (PCR) Not detected (NOT DETECT) 01/22/22 07:35 Discharge Plan Discharge Condition: Stable Prescriptions: No Action diazepam [Valium] 5 mg tablet 5 mg PO TID PRN (Reason: anxiety) Qty: 90 2RF gabapentin 400 mg capsule See Rx Instructions .ROUTE .COMPLEX Qty: 90 0RF Dose Instruction: TAKE 1 CAPSULE BY MOUTH THREE TIMES DAILY Rx Instructions: TAKE 1 CAPSULE BY MOUTH THREE TIMES DAILY meclizine 25 mg tablet 25 mg PO BID PRN acetaminophen-codeine 300-60 mg tablet 1 tab PO QID PRN (Reason: pain) 30 Days Qty: 120 2RF Rx Instructions: fill on or after 07/08/21 pantoprazole 40 mg tablet,delayed release (DR/EC) 40 mg PO DAILY Qty: 180 0RF levothyroxine 25 mcg tablet See Rx Instructions .ROUTE .COMPLEX Qty: 90 0RF Dose Instruction: TAKE 1 TABLET EVERY DAY Rx Instructions: TAKE 1 TABLET EVERY DAY bupropion HCl [Wellbutrin SR] 200 mg tablet sustained-release 12 hr 200 mg PO BID Qty: 180 0RF buspirone 10 mg tablet 10 mg PO TID Qty: 180 0RF duloxetine [Cymbalta] 60 mg capsule,delayed release(DR/EC) 120 mg PO DAILY Qty: 180 0RF acyclovir 400 mg tablet See Rx Instructions .ROUTE .COMPLEX Qty: 90 0RF Dose Instruction: TAKE 1 TABLET BY MOUTH DAILY Rx Instructions: TAKE 1 TABLET BY MOUTH DAILY methylphenidate HCl [Ritalin] 10 mg tablet 15 mg PO BID 30 Days Qty: 90 0RF methylphenidate HCl [Ritalin] 10 mg tablet 15 mg PO BID 30 Days Qty: 90 0RF methylphenidate HCl [Ritalin] 10 mg tablet 15 mg PO BID 30 Days Qty: 90 0RF metoprolol succinate 25 mg tablet extended release 24 hr See Rx Instructions .ROUTE .COMPLEX Qty: 30 0RF Dose Instruction: TAKE 1 TABLET BY MOUTH DAILY Rx Instructions: TAKE 1 TABLET BY MOUTH DAILY Herpes Med 1 tab PO DAILY Rx Instructions: pt states she takes some kind of medication for herpes and is unsure of the name pt states she hasnt taken for a few days-pts pharmacy not open to verify medication Paxlovid (EUA) 150 mg x 2- 100 mg tablet See Rx Instructions .ROUTE .COMPLEX Qty: 30 0RF Rx Instructions: take TWO 150 mg tablets of nirmatrelvir with ONE 100 mg tablet of ritonavir twice daily for 5 days Referrals: Margy Montes De Oca FNP [Primary Care Provider] - Coding Level of Care Code ED Turbine Measurements Engineer for Anuj Ocasio
== END 2022-01-23 20:04 | disposition home or self-care (01) ==
PROVIDERS: Emergency Provider Registered Nurse; PCP Nurse Practitioner Family
DX: U07.1 COVID-19 (principal)
CPT/HCPCS: 71045; 87426; 99283

== ENCOUNTER 2022-01-26 00:48 | Observation (INO) | payer MEDICARE, MEDICAID, SELFPAY ==
[2021-06-29 14:55] VITALS: BP 138/83; BMI 26.3
[2022-01-26] VITALS (11 sets, daily range): BP systolic 127–164; BP diastolic 67–102; PULSE 71–98; RESP 15–18; TEMP 36.4–37; O2SAT 95–99
--- NOTE | 2022-01-26 00:56 | XRR_ITS ---
PROCEDURE INFORMATION: Exam: XR Chest Exam date and time: 01/26/2022 1:01 AM Age: 66 years old Clinical indication: Patient HX: General weakness. Covid + TECHNIQUE: Imaging protocol: Radiologic exam of the chest. Views: 1 view. COMPARISON: CR (CHEST, ) 01/23/2022 6:03 PM FINDINGS: Lungs: Possible mild right infrahilar and left basilar pneumonia. Stable COPD . Pleural spaces: Unremarkable. No pleural effusion. No pneumothorax. Heart/Mediastinum: Unremarkable. No cardiomegaly. Bones/joints: Mild dextroscoliosis. Multilevel degenerative disc disease and spondylosis. XR/XR chest 1V portable [id number] IMPRESSION: 1. Possible mild right infrahilar and left basilar pneumonia. 2. Stable COPD .
[2022-01-26] MEDS: sodium chloride 0.9% 1,000 ML 999 ML IV ×2 (01:09→03:59)
[2022-01-26] MEDS: ondansetron 2 mg/ML SDV 2 mL 4 MG IVP ×3 (01:10→15:27)
--- NOTE | 2022-01-26 01:10 | W.ED.WEAKNES ---
HPI - Weakness General: Chief complaint: Weakness Stated complaint: Generalized Weakness Time Seen by Provider: 01/26/22 00:56 Source: patient and EMS Mode of arrival: EMS Limitations: no limitations History of Present Illness: 66-year-old female who states that she diagnosed with COVID 3 days ago states she has been generally getting weaker. She states that she lives at the [facility] and has no family here. States that she has not been able to ambulate and feels like she can no longer take care of her self she denies any pain denies any vomiting or diarrhea. PFSH ED PFSH: Medical History Attention-deficit hyperactivity disorder, predominantly inattentive type Chronic narcotic use Chronic posttraumatic stress disorder Drug abuse, nondependent Encounter for narcotic contract discussion Facet arthritis of lumbosacral region Generalized anxiety disorder Hx of nephrolithotomy with removal of calculi Major depressive disorder, recurrent, moderate Narcotic use agreement exists Psychiatric care Trochanteric bursitis of left hip Trochanteric bursitis of right hip Surgical History History of carpal tunnel surgery Family History Father CAD (coronary artery disease) Mother Alzheimer disease Social History Smoking and tobacco status: never smoked Second hand smoke exposure: No Alcohol intake: former Adopted: No Caregiver/support person: No Lives independently: Yes Household members: none Housing: Apartment Marital status: Single Number of children: 0 Highest education level completed: Some College, No Degree 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 Current occupational status: retired and disabled Pets and animals: Yes Pets & animals: dog(s) History of recent travel: No Leisure activites: other Leisure activities details: ye chong being near water Current gender identity: Female Nunu/Methodist: [employer] Special nunu needs: No Agree to transfusion: Yes Financial difficulty paying for basics: Not Very Hard Physical Exam Const: COMMON NORMALS: no acute distress, patient oriented x3 and healthy appearing HENMT: COMMON NORMALS: normocephalic and atraumatic HEAD & SCALP: normocephalic and atraumatic Eye: COMMON NORMALS: Equal, round and reactive pupils present and EOMs intact bilaterally PUPIL: Yes Equal, round and reactive pupils present Neck/C-Spine: COMMON NORMALS: full ROM and supple Chest: COMMONS NORMALS: normal inspection of the chest and normal palpation of entire chest wall Resp: COMMON NORMALS: normal respiratory effort, No retractions, No use of accessory muscles and clear to auscultation bilaterally AUSCULTATION: clear to auscultation bilaterally Cardio: COMMON NORMALS: regular rate, regular rhythm and No murmurs present (Cardio) RATE: regular rate RHYTHM: regular rhythm GI: COMMON NORMALS: Normal to inspection, nondistended, normoactive bowel sounds present, Soft to palpation, non-tender and no masses PALPATION: Yes Soft to palpation Extremity: COMMON NORMALS: normal to inspection and full ROM Neuro: COMMON NORMALS: patient oriented x3, moves all extremities and no focal motor deficits Psych: COMMON NORMALS: mental status grossly normal, Normal thought process present and cooperative THOUGHT PROCESS: Normal thought process present Skin: COMMON NORMALS: no rashes or lesions noted and no wounds GENERAL SKIN EXAM: no rashes or lesions noted Course Vital Signs: Vital signs: Vital Signs Temperature 97.6 F 01/26/22 00:50 Pulse Rate 86 01/26/22 02:51 Respiratory Rate 16 01/26/22 02:51 Blood Pressure 164/71 01/26/22 02:51 Pulse Oximetry 95 01/26/22 02:51 Oxygen Delivery Me thod 01/26/22 02:51 MDM - Weakness Medical Decision Making Patient presents with weakness along with COVID-19 patient's blood work here is normal I did attempt to discharge her but she states she is not able to ambulate I tried to stand her and she will not stand at this time she states that she is living in a hotel and cannot take care of her self spoke to hospitalist will admit. Lab Data : 01/26/22 00:45 01/26/22 00:45 Laboratory Results WBC 4.5 10^3/uL (4.0-10.0) 01/26/22 00:45 RBC 5.14 10^6/uL (4.1-5.3) 01/26/22 00:45 Hgb 15.5 g/dL (11.5-15.3) H 01/26/22 00:45 Hct 47.5 % (37.0-47.0) H 01/26/22 00:45 MCV 92.4 fl (81-99) 01/26/22 00:45 MCH 30.2 pg (28.0-34.0) 01/26/22 00:45 MCHC 32.6 g/dL (30.0-36.0) 01/26/22 00:45 RDW 13.1 % (12.1-15.1) 01/26/22 00:45 Plt Count 257 10^3/cmm (130-400) 01/26/22 00:45 MPV 10.1 fL (7.4-10.4) 01/26/22 00:45 Neut % (Auto) 42.5 % 01/26/22 00:45 Lymph % (Auto) 50.2 % 01/26/22 00:45 [place] % (Auto) 6.9 % 01/26/22 00:45 Eos % (Auto) 0.0 % 01/26/22 00:45 Baso % (Auto) 0.2 % 01/26/22 00:45 Neut # (Auto) 1.92 10^3/uL (1.8-7.7) 01/26/22 00:45 Lymph # (Auto) 2.3 10^3/uL (0.8-4.8) 01/26/22 00:45 [place] # (Auto) 0.3 10^3/uL (0.2-0.9) 01/26/22 00:45 Eos # (Auto) 0.0 10^3/uL (0.0-0.8) 01/26/22 00:45 Baso # (Auto) 0.0 10^3/uL (0.0-0.1) 01/26/22 00:45 Nucleated RBC % (auto) 0 % 01/26/22 00:45 Nucleated RBCs # 0.0 /100WBC 01/26/22 00:45 Sodium 140 mmol/L (136-145) 01/26/22 00:45 Potassium 3.6 mmol/L (3.5-5.1) 01/26/22 00:45 Chloride 100 mmol/L (98-107) 01/26/22 00:45 Carbon Dioxide 26 mmol/L (22-29) 01/26/22 00:45 Anion Gap 17.6 (5-19) 01/26/22 00:45 BUN 16 mg/dL (8-23) 01/26/22 00:45 Creatinine 0.5 mg/dL (0.5-0.9) 01/26/22 00:45 GFR Calculation 123.1 mL/min (90-130) 01/26/22 00:45 Glucose 79 mg/dL (65-115) 01/26/22 00:45 Calculated Osmolality 290 mOsm/kg (285-295) 01/26/22 00:45 Calcium 9.4 mg/dL (8.5-10.5) 01/26/22 00:45 Total Bilirubin 0.4 mg/dL (0.15-1.2) 01/26/22 00:45 AST 20 U/L (0-32) 01/26/22 00:45 ALT 15 U/L (0-33) 01/26/22 00:45 Alkaline Phosphatase 81 U/L (35-105) 01/26/22 00:45 Total Protein 6.9 g/dL (6.6-8.7) 01/26/22 00:45 Albumin 4.3 g/dL (3.5-5.2) 01/26/22 00:45 Globulin 2.6 g/dL (1.3-4.6) 01/26/22 00:45 TSH 5.40 uIU/mL (0.27-4.20) H 01/26/22 00:45 Urine Color Yellow (Yellow) 01/26/22 01:04 Urine Appearance Clear (CLEAR) 01/26/22 01:04 Urine pH 6 (5-7) 01/26/22 01:04 Ur Specific [place] 1.015 (1.005-1.030) 01/26/22 01:04 Urine Protein Neg (Negative) 01/26/22 01:04 Urine Glucose (UA) Norm (Normal) 01/26/22 01:04 Urine Ketones 3+ (Negative) H 01/26/22 01:04 Urine Blood Neg (Negative) 01/26/22 01:04 Urine Nitrate Negative (Negative) 01/26/22 01:04 Urine Bilirubin Neg (Negative) 01/26/22 01:04 Urine Urobilinogen Norm mg/dL (Negative) 01/26/22 01:04 Ur Leukocyte Esterase Negative (Negative) 01/26/22 01:04 EKG Data EKG 1: I personally reviewed and interpreted this EKG as follows: EKG interpretation date: 01/26/22 EKG interpretation time: 01:13 Interpretation: nsr hr [address] or t wave abnormalities qrs 96 qtc 448 Discharge Plan Discharge Patient Disposition: Admitted As Inpatient Clinical Impression: COVID-19, Weakness Condition: Stable Discharge Diet: Advance as tolerated Discharge Activity: Resume usual activity Coding Level of Care Code ED Senior Geotechnical Engineer for Chg Fwd Exam Comprehensive
--- NOTE | 2022-01-26 01:13 | ECG_ITS ---
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 Measurements Intervals [place] Rate: 74 P: 35 [place]: 192 QRS: -10 QRSD: 96 T: 13 QT: 421 QTc: 468 Interpretive Statements SINUS RHYTHM Compared to ECG 01/22/2022 07:02:39 No significant changes Electronically Signed On 01-26-2022 19:46:56 CDT by Carmelo Gil M.D. [id number]
[2022-01-26 01:31] LABS: Basophils % 0.2 %; Hematocrit 47.5 % (37.0-47.0); Hemoglobin 15.5 g/dL (11.5-15.3); Lymphocytes # 2.3 10^3/uL (0.8-4.8); Lymphocytes % 50.2 %; Mean Corpuscular HGB Conc 32.6 g/dL (30.0-36.0); Mean Corpuscular Hemoglobin 30.2 pg (28.0-34.0); Mean Corpuscular Volume 92.4 fl (81-99); Mean Platelet Volume 10.1 fL (7.4-10.4); Monocytes # 0.3 10^3/uL (0.2-0.9); Monocytes % 6.9 %; Neutrophils # 1.92 10^3/uL (1.8-7.7); Neutrophils % 42.5 %; Nucleated Red Blood Cells % 0 %; Platelet Count 257 10^3/cmm (130-400); Red Blood Count 5.14 10^6/uL (4.1-5.3); Red Cell Distribution Width 13.1 % (12.1-15.1); White Blood Count 4.5 10^3/uL (4.0-10.0)
--- NOTE | 2022-01-26 01:47 | PC.NURSE ---
Pt unable to urinate. Requests in and out cath. This was completed using sterile technique. Pt tolerated well.
[2022-01-26 01:58] LABS: Alanine Aminotransferase 15 U/L (0-33); Albumin Level 4.3 g/dL (3.5-5.2); Alkaline Phosphatase 81 U/L (35-105); Anion Gap 17.6 (5-19); Aspartate Amino Transferase 20 U/L (0-32); Blood Urea Nitrogen 16 mg/dL (8-23); Calcium 9.4 mg/dL (8.5-10.5); Carbon Dioxide 26 mmol/L (22-29); Chloride 100 mmol/L (98-107); Globulin 2.6 g/dL (1.3-4.6); Glomerular Filtration Rate 123.1 mL/min (90-130); Glucose 79 mg/dL (65-115); Osmolality Calculated 290 mOsm/kg (285-295); Potassium 3.6 mmol/L (3.5-5.1); Sodium 140 mmol/L (136-145); Total Bilirubin 0.4 mg/dL (0.15-1.2); Total Protein 6.9 g/dL (6.6-8.7)
[2022-01-26 02:03] LABS: Add Urine Microscopic? NO; Charge for UA Resulting for Rev
[2022-01-26 02:05] LABS: Urine Appearance Clear (CLEAR); Urine Color Yellow (Yellow)
[2022-01-26 02:06] LABS: Bilirubin Urine Neg (Negative); Blood Urine Neg (Negative); Glucose Urine UA Norm (Normal); Ketones Urine 3+ (Negative); Leukocyte Esterase Urine Negative (Negative); Nitrate Urine Negative (Negative); Protein Urine Neg (Negative); Specific Gravity, Urine 1.015 (1.005-1.030); Urobilinogen Urine Norm (Negative); pH Urine 6 (5-7)
--- NOTE | 2022-01-26 02:42 | CTR_ITS ---
PROCEDURE INFORMATION: Exam: CT Head Without Contrast Exam date and time: 01/26/2022 2:52 AM Age: 66 years old Clinical indication: Other: General weakness TECHNIQUE: Imaging protocol: Computed tomography of the head without contrast. Radiation optimization: All CT scans at this facility use at least one of these dose optimization techniques: automated exposure control; mA and/or kV adjustment per patient size (includes targeted exams where dose is matched to clinical indication); or iterative reconstruction. COMPARISON: CT head wo con* [id number] 04/02/2020 2:50 PM RADIATION DOSE METRICS: Total DLP (mGy-cm): 1093.28 FINDINGS: Brain: Severe calcified intracranial atherosclerotic vessel disease. Mild cerebral atrophy and ischemic leukoencephalopathy. Cerebral ventricles: No ventriculomegaly. Paranasal sinuses: Visualized sinuses are unremarkable. No fluid levels. Mastoid air cells: Visualized mastoid air cells are well aerated. Bones/joints: Unremarkable. No acute fracture. Soft tissues: Unremarkable. CT/CT head wo con* [id number] IMPRESSION: No acute C-spine findings.
--- NOTE | 2022-01-26 02:47 | PC.NURSE ---
Attempted to DC pt. Pt states she can't take care of herself and wants case management. Explained to pt that I would set up case management for the morning, but she was ready for DC. Pt requested food, which was provided. IV was then DC'd. When attempting to get pt up, she began saying she couldn't stand. Pt would not get up to the wc and would not attempt it. Pt remained alert and oriented, but at times would stop talking. When redirected, pt would begin answering questions again. Dr. Manning notified and was called to bedside. Pt requested stay in hospital until placement could be made in a NH. Pt still refused to try to stand, stating she was too weak. Dr. Manning agreed to keep pt and pt was able to pull her legs back up into the bed and lay herself back down. Pt covered with warm blanket.
[2022-01-26] MEDS: ondansetron 4 MG Tablet PO (04:00)
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
[2022-01-26 07:00] LABS: Procalcitonin 0.05 ng/mL (0-0.5)
--- NOTE | 2022-01-26 08:52 | PC.PHAR ---
pt states she takes care of her own medications-pt states she is unsure if she takes metoprolol succinate or tartrate-states what she gets from [facility] is what she takes-[facility] succinate 25mg daily on 01/10/22 30d/s [facility] filled tartrate 25mg daily on 01/13/22 90d/s-pt got a rx filled on 01/22/22 for paxlovid pt states it was filled but never got picked up-notes are made in the pharmacy comments
[2022-01-26] MEDS: sennosides-docusate Tablet 1 TAB PO (09:37)
[2022-01-26] MEDS: gabapentin 400 mg Capsule PO ×3 (09:37→21:02)
[2022-01-26] MEDS: BuSPIRONE 10 mg Tablet PO ×3 (09:37→21:02)
[2022-01-26] MEDS: enoxaparin 40 mg/0.4 mL Syringe SUBCUT (09:37)
[2022-01-26] MEDS: levothyroxine 25 mcg Tablet PO (09:37)
[2022-01-26] MEDS: acyclovir 400 mg Tablet PO (09:37)
[2022-01-26] MEDS: methylphenidate 10 mg Tablet 15 MG PO ×2 (09:37→18:19)
[2022-01-26] MEDS: buPROPion SR (12 HR) 100 mg Tablet 200 MG PO ×2 (09:44→21:02)
[2022-01-26 10:19] LABS: Vitamin B12 > 2000 pg/mL (232-1245)
[2022-01-26] MEDS: diazePAM 5 mg Tablet PO (12:51)
--- NOTE | 2022-01-26 13:13 | PM.PN ---
Subjective Subjective: Patient reports she feels significantly weak and is still having loose stool. Denies being short of breath. Medications: Reviewed: Yes Vitals/I&O/Wt Last Vital Signs Temp 98.4 F 01/26/22 11:41 Pulse 98 01/26/22 11:41 Resp 16 01/26/22 11:41 BP 129/76 01/26/22 11:41 Pulse Ox 98 01/26/22 11:41 O2 Del Method 01/26/22 11:41 01/25/22 01/26/22 01/26/22 22:59 06:59 14:59 Intake Total 1999 / 1999 240 / 240 Output Total 600 / 600 Balance 1400 / 1400 240 / 240 Weight last 48 hrs Weight 63.503 kg Physical Exam Narrative: General exam is white female in no apparent distress Neck is supple no lymphadenopathy thyromegaly Cardiovascular regular rate and rhythm with a 2/6 systolic murmur Lungs faint coarse breath sounds right lower lobe Abdomen is soft nontender positive bowel sounds. No obvious organomegaly exam is deferred Extremities no cyanosis clubbing or edema, cap refill brisk Skin no rash Data : 01/26/22 00:45 01/26/22 00:45 A&P Assessment and plan (1) COVID-19: She did take Paxil of it earlier. She is currently not requiring any oxygen, and does not qualify at this time for remdesivir or dexamethasone Supportive care Procalcitonin not significantly elevated. Concern of superimposed bacterial pneumonia on x-ray secondary to focal infiltrate. Levaquin was added orally which she is tolerating well. Secondary to concomitant diarrhea check C. difficile Status: Acute (2) Weakness: Continue supportive care with fluids She currently reports she is too weak to go home, but is somewhat stronger than on admission. Will reevaluate tomorrow for potential discharge versus placement in group home facility. TSH acceptable Status: Acute Plan Anxiety/mental health disorder. Currently appears stable Multiple other medical problems as outlined in past medical history Lovenox for DVT prophylaxis Attestations Medical Necessity Statement*: Needs continued hospitalization secondary to weakness and persistent diarrhea Coding Level of Care Code Acute Sign Writer Letterer Or Painter for Chg Fwd Diagnoses COVID-19 U07.1 Weakness R53.1
[2022-01-26] MEDS: acetaminophen 500 mg Tablet PO (21:17)
[2022-01-26 22:47] LABS: Amphetamines Screen Urine Negative (Negative); Barbiturates Screen Urine Negative (Negative); Benzodiazepines Screen Urine Positive (Negative); Cocaine Screen Urine Negative (Negative); Opiate Screen Urine Positive (Negative); PCP Screen Urine Negative (Negative); THC Screen Urine Negative (Negative)
[2022-01-27 03:17] VITALS: RESP 18
[2022-01-27] MEDS: morphine IR 15 mg Tablet PO (03:17)
[2022-01-27] MEDS: levoFLOXacin 750 mg Tablet PO (05:43)
[2022-01-27 06:03] LABS: Basophils % 0.2 %; Eosinophils % 0.5 %; Hematocrit 41.4 % (37.0-47.0); Hemoglobin 13.3 g/dL (11.5-15.3); Lymphocytes # 1.8 10^3/uL (0.8-4.8); Lymphocytes % 41.8 %; Mean Corpuscular HGB Conc 32.1 g/dL (30.0-36.0); Mean Corpuscular Volume 93.5 fl (81-99); Mean Platelet Volume 9.6 fL (7.4-10.4); Monocytes # 0.3 10^3/uL (0.2-0.9); Monocytes % 6.8 %; Neutrophils # 2.21 10^3/uL (1.8-7.7); Neutrophils % 50.5 %; Nucleated Red Blood Cells % 0 %; Platelet Count 234 10^3/cmm (130-400); Red Blood Count 4.43 10^6/uL (4.1-5.3); Red Cell Distribution Width 13.2 % (12.1-15.1); White Blood Count 4.4 10^3/uL (4.0-10.0)
[2022-01-27 07:06] LABS: Alanine Aminotransferase 18 U/L (0-33); Albumin Level 3.5 g/dL (3.5-5.2); Alkaline Phosphatase 67 U/L (35-105); Anion Gap 10.9 (5-19); Aspartate Amino Transferase 17 U/L (0-32); Blood Urea Nitrogen 13 mg/dL (8-23); Calcium 9.2 mg/dL (8.5-10.5); Carbon Dioxide 29 mmol/L (22-29); Chloride 107 mmol/L (98-107); Globulin 2.8 g/dL (1.3-4.6); Glomerular Filtration Rate 99.7 mL/min (90-130); Glucose 106 mg/dL (65-115); Osmolality Calculated 297 mOsm/kg (285-295); Potassium 3.9 mmol/L (3.5-5.1); Sodium 143 mmol/L (136-145); Total Bilirubin 0.3 mg/dL (0.15-1.2); Total Protein 6.3 g/dL (6.6-8.7)
[2022-01-27 08:00] VITALS: BP 136/80; PULSE 72; PULSE 78; RESP 15; RESP 16; TEMP 36.6; O2SAT 96; O2SAT 99
[2022-01-27] MEDS: enoxaparin 40 mg/0.4 mL Syringe SUBCUT (08:59)
[2022-01-27] MEDS: gabapentin 400 mg Capsule PO (08:59)
[2022-01-27] MEDS: sennosides-docusate Tablet 1 TAB PO (08:59)
[2022-01-27] MEDS: levothyroxine 25 mcg Tablet PO (09:00)
[2022-01-27] MEDS: acyclovir 400 mg Tablet PO (09:00)
[2022-01-27] MEDS: methylphenidate 10 mg Tablet 15 MG PO (09:00)
[2022-01-27] MEDS: BuSPIRONE 10 mg Tablet PO (09:00)
[2022-01-27] MEDS: diazePAM 5 mg Tablet PO (09:00)
[2022-01-27] MEDS: buPROPion SR (12 HR) 100 mg Tablet 200 MG PO (09:34)
--- NOTE | 2022-01-27 09:58 | PM.DCS ---
Discharge Providers Date of Admission: 01/26/22 03:18 Date of Discharge: January 27, 2022 Attending Provider at Admission: Radha Lopez MD Attending Provider at Discharge: Corbin Sam MD Primary Care Provider: MANN Delgado Diagnoses at Discharge Discharge Diagnosis (1) COVID-19: Status: Acute (2) Weakness: Status: Acute Reason for Visit Reason for Visit: Generalized Weakness Hospital Course Hospital Course Ijeoma is a 66-year-old white female with poor social situation living in a hotel who presents with generalized weakness and was recently diagnosed with COVID-19 on January 23. Symptoms started around January 19. She had received some treatment with Paxil of it. She had had some issues with her living arrangements in the past, and was significantly weak. She wished to be placed in a nursing facility. She was admitted to the hospital with Covid 19 and question of superimposed bacterial infection. She was placed on Levaquin by mouth. There was no evidence for initiation of Decadron or remdesivir. During her hospital stay she remained stable but weak. She was afebrile, and required no oxygen. Nursing facility placement was arranged January 27, and she was discharged to the nursing facility. She was instructed to quarantine at least 10 days after onset of symptoms. As she had some loose stool with her illness a C. difficile it was checked and negative as well. Physical Exam Narrative: Is aGeneral exam no distress Neck is supple no lymphadenopathy thyromegaly Cardiovascular regular in rhythm without murmur Lungs clear nontender positive bowel sounds Extremities no cyanosis clubbing or edema Skin without rash Discharge Data Studies Completed and Pending Completed Studies During Hospitalization Category Date Time Status CT head wo con* [id number] Stat Cat Scan 01/26/22 02:42 Completed XR chest 1V portable [id number] Stat Exams 01/26/22 00:56 Completed Pending at discharge Category Date Time Status MRSA by PCR Routine Lab 01/26/22 12:57 Received Sputum Culture and Gram Stain Routine Lab 01/26/22 06:53 Uncollected Radiology Impressions Chest X-Ray 01/26/22 00:56 IMPRESSION: 1. Possible mild right infrahilar and left basilar pneumonia. 2. Stable COPD . Head CT 01/26/22 02:42 IMPRESSION: No acute C-spine findings. Laboratory Results WBC 4.4 10^3/uL (4.0-10.0) 01/27/22 05:39 RBC 4.43 10^6/uL (4.1-5.3) 01/27/22 05:39 Hgb 13.3 g/dL (11.5-15.3) 01/27/22 05:39 Hct 41.4 % (37.0-47.0) 01/27/22 05:39 MCV 93.5 fl (81-99) 01/27/22 05:39 MCH 30.0 pg (28.0-34.0) 01/27/22 05:39 MCHC 32.1 g/dL (30.0-36.0) 01/27/22 05:39 RDW 13.2 % (12.1-15.1) 01/27/22 05:39 Plt Count 234 10^3/cmm (130-400) 01/27/22 05:39 MPV 9.6 fL (7.4-10.4) 01/27/22 05:39 Neut % (Auto) 50.5 % 01/27/22 05:39 Lymph % (Auto) 41.8 % 01/27/22 05:39 [place] % (Auto) 6.8 % 01/27/22 05:39 Eos % (Auto) 0.5 % 01/27/22 05:39 Baso % (Auto) 0.2 % 01/27/22 05:39 Neut # (Auto) 2.21 10^3/uL (1.8-7.7) 01/27/22 05:39 Lymph # (Auto) 1.8 10^3/uL (0.8-4.8) 01/27/22 05:39 [place] # (Auto) 0.3 10^3/uL (0.2-0.9) 01/27/22 05:39 Eos # (Auto) 0.0 10^3/uL (0.0-0.8) 01/27/22 05:39 Baso # (Auto) 0.0 10^3/uL (0.0-0.1) 01/27/22 05:39 Nucleated RBC % (auto) 0 % 01/27/22 05:39 Nucleated RBCs # 0.0 /100WBC 01/27/22 05:39 Sodium 143 mmol/L (136-145) 01/27/22 06:25 Potassium 3.9 mmol/L (3.5-5.1) 01/27/22 06:25 Chloride 107 mmol/L (98-107) 01/27/22 06:25 Carbon Dioxide 29 mmol/L (22-29) 01/27/22 06:25 Anion Gap 10.9 (5-19) 01/27/22 06:25 BUN 13 mg/dL (8-23) 01/27/22 06:25 Creatinine 0.6 mg/dL (0.5-0.9) 01/27/22 06:25 GFR Calculation 99.7 mL/min (90-130) 01/27/22 06:25 Glucose 106 mg/dL (65-115) 01/27/22 06:25 Calculated Osmolality 297 mOsm/kg (285-295) H 01/27/22 06:25 Calcium 9.2 mg/dL (8.5-10.5) 01/27/22 06:25 Magnesium 2.0 mg/dL (1.7-2.3) 01/27/22 06:25 Total Bilirubin 0.3 mg/dL (0.15-1.2) 01/27/22 06:25 AST 17 U/L (0-32) 01/27/22 06:25 ALT 18 U/L (0-33) 01/27/22 06:25 Alkaline Phosphatase 67 U/L (35-105) 01/27/22 06:25 Total Protein 6.3 g/dL (6.6-8.7) L 01/27/22 06:25 Albumin 3.5 g/dL (3.5-5.2) 01/27/22 06:25 Globulin 2.8 g/dL (1.3-4.6) 01/27/22 06:25 Vitamin B12 > 2000 pg/mL (232-1245) H 01/26/22 00:45 Procalcitonin 0.05 ng/mL (0-0.5) 01/26/22 00:45 TSH 5.40 uIU/mL (0.27-4.20) H 01/26/22 00:45 Urine Color Yellow (Yellow) 01/26/22 01:04 Urine Appearance Clear (CLEAR) 01/26/22 01:04 Urine pH 6 (5-7) 01/26/22 01:04 Ur Specific Reading 1.015 (1.005-1.030) 01/26/22 01:04 Urine Protein Neg (Negative) 01/26/22 01:04 Urine Glucose (UA) Norm (Normal) 01/26/22 01:04 Urine Ketones 3+ (Negative) H 01/26/22 01:04 Urine Blood Neg (Negative) 01/26/22 01:04 Urine Nitrate Negative (Negative) 01/26/22 01:04 Urine Bilirubin Neg (Negative) 01/26/22 01:04 Urine Urobilinogen Norm mg/dL (Negative) 01/26/22 01:04 Ur Leukocyte Esterase Negative (Negative) 01/26/22 01:04 Urine Opiates Screen Positive ng/mL (Negative) H 01/26/22 21:27 Ur Barbiturates Screen Negative ng/mL (Negative) 01/26/22 21:27 Ur Phencyclidine Scrn Negative ng/mL (Negative) 01/26/22 21:27 Ur Amphetamines Screen Negative ng/mL (Negative) 01/26/22 21:27 U Benzodiazepines Scrn Positive ng/mL (Negative) H 01/26/22 21:27 Urine Cocaine Screen Negative ng/mL (Negative) 01/26/22 21:27 U Marijuana (THC) Screen Negative ng/mL (Negative) 01/26/22 21:27 Vitals Last Vital Signs Temp 97.9 F 01/27/22 08:00 Pulse 78 01/27/22 08:00 Resp 16 01/27/22 08:00 BP 136/80 01/27/22 08:00 Pulse Ox 96 01/27/22 08:00 O2 Del Method 01/27/22 08:00 Discharge Plan Discharge Patient Disposition: Home Condition: Stable Prescriptions: New ondansetron 4 mg tablet,disintegrating 4 mg PO Q6H PRN (Reason: nausea and vomiting) Qty: 14 0RF levofloxacin 750 mg Tablet 750 mg PO DAILY@0600 Qty: 5 0RF Valium 5 mg tablet 5 mg PO TID PRN (Reason: anxiety) Qty: 20 0RF Ritalin 10 mg tablet 15 mg PO BID Qty: 20 0RF Continued meclizine 25 mg tablet 25 mg PO BID PRN (Reason: Vertigo) pantoprazole 40 mg tablet,delayed release (DR/EC) 40 mg PO DAILY Qty: 180 0RF bupropion HCl [Wellbutrin SR] 200 mg tablet sustained-release 12 hr 200 mg PO BID Qty: 180 0RF buspirone 10 mg tablet 10 mg PO TID Qty: 180 0RF omega-3 fatty acids 1,000 mg Capsule 3,000 mg PO DAILY gabapentin 400 mg capsule 400 mg PO TID Vitamin B-12 1,000 mcg Tablet 1,000 mcg PO DAILY acyclovir 400 mg tablet 400 mg PO DAILY levothyroxine 25 mcg tablet 25 mcg PO QAM Vitamin D3 25 mcg (1,000 unit) Capsule 25 mcg PO DAILY Gerard-Mag 200 mg calcium- 100 mg Tablet,Chewable 1 tab PO DAILY Probiotic Blend 2 billion cell-50 mg Capsule 1 cap PO DAILY Rx Instructions: give with meal/snack Cymbalta 60 mg capsule,delayed release(DR/EC) 60 mg PO BID metoprolol succinate 25 mg tablet extended release 24 hr 25 mg PO BEDTIME Discontinued diazepam [Valium] 5 mg tablet 5 mg PO TID PRN (Reason: anxiety) Qty: 90 2RF acetaminophen-codeine 300-60 mg tablet 1 tab PO QID PRN (Reason: pain) 30 Days Qty: 120 2RF methylphenidate HCl [Ritalin] 10 mg tablet 15 mg PO BID 30 Days Qty: 90 0RF Paxlovid (EUA) 150 mg x 2- 100 mg tablet See Rx Instructions .ROUTE .COMPLEX Qty: 30 0RF Rx Instructions: take TWO 150 mg tablets of nirmatrelvir with ONE 100 mg tablet of ritonavir twice daily for 5 days Discharge Orders: Discharge Order (Routine); Ordered 01/27/22 Ordered By: Corbin Sam Other Ambulatory Orders: DME: [facility] (Order) Location: None Selected Ordered By: Corbin Sam Referrals: Margy Montes De Oca FNP [Primary Care Provider] - 1-3 days Discharge Diet: Advance as tolerated Discharge Activity: Resume usual activity Patient Instructions: COVID-19 (Coronavirus Disease 2019) (ED), Opioid Safety Activity Restrictions/Additional Instructions: Take all medicine as prescribed Isolate 10 days from onset of symptoms secondary to COVID Follow-up with primary care provider 3 to 5 days at nursing facility Discharge Attestations Time Spent in Discharge Care*: greater than 30 min Quality Metrics Clinical Quality Measures [ No reported AMI, CVA or VTE this stay] Coding Level of Care Code Acute Chg FW DC note Diagnoses COVID-19 U07.1 Weakness R53.1
--- NOTE | 2022-01-27 10:25 | PC.CHAP ---
Pastoral Care Encounter/Spiritual Assessment Type of Contact [] Declined government minister visit [] Patient/Family/Request visit [] Outpatient visit [] Follow-up visit [] Physician referral [] Code/Alert [] Routine visit [] Staff referral [] Actively dying [] Patient sleeping [] Family support [] [] Out of room [] Palliative care [] [] Receiving care in room [] Pre-surgical visit [] Trauma [] Long length of stay [] ICU visit [x] Other: Isolation Relational/Emotional Strength [] Patient feels connected with others/family/visitors/staff [] Distress [] Loneliness/isolation [] Abandonment Spirituality of Patient [] Person of Nunu [] Attends Muslim of their Nunu [] Believes in Prayer [] Reads Bible or Rastafari materials [] There are Spiritual issues to be addressed Media Specialist Interventions [] Prayer [] Active listening [] Non-anxious presence [] Spiritual/emotional support [] Crisis/trauma care [] Spiritual counseling [] Bereavement support [] Provided bereavement packet [] Provided Bible/devotional materials [] Provided toy/stuffed animal, coloring book to patient or family member [] Provided Communion [] Anointing/Mission [] Salvation [] Completed spiritual assessment [] Other: Impact on Illness or Injury [] Angry [] Fearful [] Anxious [] Often cries [] Exhaustion [] Unable to work [] Unable to attend congregational [] Unable to walk/stand [] Unable to read [] Unable to drive [] Unable to eat/drink [] Unable to sleep [] Unable to be with family [] Patient intubated [] Other: Summary Isolation Time spent with patient 5 mins
[2022-01-27 11:38] VITALS: BP 152/89; PULSE 84; RESP 18; TEMP 36.6; O2SAT 98
[2022-01-27] MEDS: ondansetron 2 mg/ML SDV 2 mL 4 MG IVP (12:04)
[2022-01-27] MEDS: acetaminophen 500 mg Tablet PO (12:04)
--- NOTE | 2022-01-27 16:06 | PC.NURSE ---
Called report to SCOTTY Wall at [facility] at approx. [phone].
[2022-01-27 16:07] VITALS: BP 152/89; PULSE 84; RESP 18; TEMP 36.6; O2SAT 98
== END 2022-01-27 14:00 | disposition home or self-care (01) ==
LOC: ER 02:43 → MEDSURG 04:36
PROVIDERS: Admitting Provider Internal Medicine; Emergency Provider Emergency Medicine; PCP Nurse Practitioner Family; Visit Provider Internal Medicine
DX: U07.1 COVID-19 (principal); R53.1 Weakness; E03.9 Hypothyroidism, unspecified; F19.10 Other psychoactive substance abuse, uncomplicated; J44.9 Chronic obstructive pulmonary disease, unspecified
CPT/HCPCS: 36415; 70450; 71045; 80053; 80306; 81003; 82607; 83735; 84145; 84443; 85025; 87493; 87641; 93005; 96361; 96372; 96374; 97110; 97161; 99285; G0378; J1650; J2405; J7030; J8499; Q0162

== ENCOUNTER 2022-02-12 22:20 | Emergency (ER) | payer MEDICARE, MEDICAID, SELFPAY ==
[2021-06-29 14:55] VITALS: BP 138/83; BMI 26.3
[2022-02-12 22:27] VITALS: BMI 21.6
--- NOTE | 2022-02-12 22:55 | XRR_ITS ---
PROCEDURE INFORMATION: Exam: XR Right Shoulder Exam date and time: 02/12/2022 11:10 PM Age: 66 years old Clinical indication: Pain; Shoulder; Right; Additional info: No injury; Right shoulder pain; PT felt a weird movement TECHNIQUE: Imaging protocol: Radiologic exam of the Right shoulder. Views: 2 or more views. 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 There is moderate to severe arthritis of the right glenohumeral joint. No acute fracture or dislocation. Soft tissues: Normal. XR/XR shoulder RT min 2V* [id number] IMPRESSION: 1. No acute fracture or dislocation. 2. 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 3. There is moderate to severe arthritis of the right glenohumeral joint.
--- NOTE | 2022-02-12 23:22 | W.ED.EXTPRO ---
HPI - Extremity Problem General: Chief complaint: Extremity Injury, Upper Stated complaint: R shoulder pain Time Seen by Provider: 02/12/22 22:24 History of Present Illness: Patient is a 66-year-old female comes to the ED with right shoulder pain. She states she has a history of right rotator cuff tear. She never got right rotator cuff repaired. Today she was walking around and felt a pop in her right shoulder. Denies any fall, trauma or lifting injury to cause a pop or acute pain in right shoulder. She rates her pain a 10 out of 10 and it radiates down into her right arm. Symptoms worsen with abduction of right arm. Associated symptoms: Deny chest pain, fever(s) or rash Review of Systems Const: Denies: fever(s), chills or fatigue Eyes: Denies: change in vision or eye discomfort ENMT: Denies: throat pain, odynophagia, nasal discharge or nasal congestion Card: Denies: chest pain, palpitations, edema, swelling of feet/ankles, dyspnea on exertion or orthopnea Resp: Denies: dyspnea, productive cough or non-productive cough GI: Denies: abdominal pain, nausea, vomiting, diarrhea, constipation or hematochezia : Denies: flank pain, dysuria or hematuria Musc: Reports: extremity pain (Right shoulder) and limited range of motion (Right shoulder); Denies: neck pain, back pain or extremity swelling Skin/Breast: Denies: rash or new lesions Neuro: Denies: headache(s), numbness in extremities or weakness in extremities PFSH ED PFSH: Medical History Attention-deficit hyperactivity disorder, predominantly inattentive type Chronic narcotic use Chronic posttraumatic stress disorder Drug abuse, nondependent Encounter for narcotic contract discussion Facet arthritis of lumbosacral region Generalized anxiety disorder Hx of nephrolithotomy with removal of calculi Major depressive disorder, recurrent, moderate Narcotic use agreement exists Psychiatric care Trochanteric bursitis of left hip Trochanteric bursitis of right hip Surgical History History of carpal tunnel surgery Family History Father CAD (coronary artery disease) Mother Alzheimer disease Social History Smoking and tobacco status: never smoked Second hand smoke exposure: No Alcohol intake: former Adopted: No Caregiver/support person: No Lives independently: Yes Household members: none Housing: Apartment Marital status: Single Number of children: 0 Highest education level completed: Some College, No Degree 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: No Current occupational status: retired and disabled Pets and animals: Yes Pets & animals: dog(s) History of recent travel: No Leisure activites: other Leisure activities details: ye chong being near water Current gender identity: Female Nunu/Sikhism: Mosque Special nunu needs: No Agree to transfusion: Yes Financial difficulty paying for basics: Not Very Hard Physical Exam Const: COMMON NORMALS: no acute distress, patient oriented x3 and alert GENERAL APPEARANCE: cooperative and comfortable HENMT: COMMON NORMALS: normocephalic HEAD & SCALP: normocephalic MOUTH: Normal oral and palatal mucosa present THROAT: posterior oropharynx normal and uvula midline Neck/C-Spine: COMMON NORMALS: supple GENERAL: Yes normal visual inspection Resp: COMMON NORMALS: normal respiratory effort, No retractions, No use of accessory muscles and clear to auscultation bilaterally AUSCULTATION: clear to auscultation bilaterally Cardio: COMMON NORMALS: regular rate, regular rhythm, S1 normal heart sound present, S2 normal heart sound present, No gallops present (Cardio), No clicks present (Cardio), No murmurs present (Cardio) and Peripheral pulses 2+ throughout RATE: regular rate RHYTHM: regular rhythm HEART SOUNDS: S1 normal heart sound present and S2 normal heart sound present PERIPHERAL PULSES: Peripheral pulses 2+ throughout GI: COMMON NORMALS: Normal to inspection, nondistended, normoactive bowel sounds present, Soft to palpation, non-tender and no masses PALPATION: Yes Soft to palpation : COMMON NORMALS: Yes no CVA tenderness BLADDER/KIDNEY EXAM: Yes no CVA tenderness Back/Pelvis: COMMON NORMALS: no CVA tenderness Extremity: NARRATIVE EXTREMITY EXAM: Right shoulder?no visible deformity, swelling or ecchymosis noted. She has tenderness to the anterior aspect of her shoulder. Pain with abduction of right shoulder. Neurovascular intact distally. Neuro: COMMON NORMALS: patient oriented x3 SENSORIUM/ORIENTATION: Yes alert GAIT: Yes Normal gait present Skin: GENERAL SKIN EXAM: dry skin Course Vital Signs: Vital signs: Vital Signs Temperature 97.9 F 02/12/22 23:25 Pulse Rate 60 02/12/22 23:25 Respiratory Rate 14 02/12/22 23:25 Blood Pressure 98/54 02/12/22 23:25 Pulse Oximetry 97 02/12/22 23:25 Oxygen Delivery Me thod 02/12/22 23:25 MDM - Extremity (Nontraumatic) Medical Decision Making Patient is a 66-year-old female comes to the ED with acute on chronic right shoulder pain. Denies any injury or trauma and states that the acute pain started earlier today when she felt a pop in her right shoulder while her arm was at rest. Vitals are stable. Exam shows some anterior tenderness to the right shoulder but the rest of exam is benign and she is neurovascular intact distally. X-ray of right shoulder showed no acute fractures or dislocations but noted some moderate to severe AC joint osteoarthritis and moderate to severe arthritis of the right glenohumeral joint. Given patient's likely chronic and progressing right shoulder pain I placed an order with case management for patient be referred to Ortho for follow-up on shoulder pain. She was given a dose of Toradol here in the ED and her right arm was put in a shoulder sling. She was discharged home with a prescription for Celebrex for pain. Return to ED precautions given. Patient understood and agreed with plan. Lab Data Radiology Impressions Shoulder X-Ray 02/12/22 22:55 IMPRESSION: 1. No acute fracture or dislocation. 2. 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 3. There is moderate to severe arthritis of the right glenohumeral joint. Discharge Plan Discharge Patient Disposition: Home Clinical Impression: Pain in right shoulder Qualifiers: Chronicity: unspecified Qualified Code(s): M25.511 - Pain in right shoulder Condition: Stable Prescriptions: New Celebrex 100 mg capsule 100 mg PO BID PRN (Reason: pain) Qty: 20 0RF No Action meclizine 25 mg tablet 25 mg PO BID PRN (Reason: Vertigo) pantoprazole 40 mg tablet,delayed release (DR/EC) 40 mg PO DAILY Qty: 180 0RF bupropion HCl [Wellbutrin SR] 200 mg tablet sustained-release 12 hr 200 mg PO BID Qty: 180 0RF buspirone 10 mg tablet 10 mg PO TID Qty: 180 0RF ondansetron 4 mg tablet,disintegrating 4 mg PO Q6H PRN (Reason: nausea and vomiting) Qty: 14 0RF omega-3 fatty acids 1,000 mg Capsule 3,000 mg PO DAILY gabapentin 400 mg capsule 400 mg PO TID Vitamin B-12 1,000 mcg Tablet 1,000 mcg PO DAILY acyclovir 400 mg tablet 400 mg PO DAILY levothyroxine 25 mcg tablet 25 mcg PO QAM Vitamin D3 25 mcg (1,000 unit) Capsule 25 mcg PO DAILY Gerard-Mag 200 mg calcium- 100 mg Tablet,Chewable 1 tab PO DAILY Probiotic Blend 2 billion cell-50 mg Capsule 1 cap PO DAILY Rx Instructions: give with meal/snack Cymbalta 60 mg capsule,delayed release(DR/EC) 60 mg PO BID metoprolol succinate 25 mg tablet extended release 24 hr 25 mg PO BEDTIME levofloxacin 750 mg Tablet 750 mg PO DAILY@0600 Qty: 5 0RF Valium 5 mg tablet 5 mg PO TID PRN (Reason: anxiety) Qty: 20 0RF Ritalin 10 mg tablet 15 mg PO BID Qty: 20 0RF Discharge Orders: Discharge ED (Routine); Ordered 02/12/22 Ordered By: Reza Rabago Referrals: Margy Montes De Oca FNP [Primary Care Provider] - Discharge Diet: Regular Discharge Activity: Increase activity as tolerated and Limit activity as instructed Patient Instructions: Shoulder Pain (ED) Activity Restrictions/Additional Instructions: Follow-up with medical provider as directed. Case management should be contacting you in the next several days to set up an appoint with Ortho for follow-up on right shoulder pain. Wear shoulder sling for the next 2 to 3 days or longer depending on your symptoms and improvement of your pain. Remember while wearing the shoulder sling remove arm from sling multiple times throughout the day and do some range of motion exercises to prevent frozen shoulder. Take medications as prescribed. Return to the ER or your medical provider if condition worsens. Please read and understand discharge instructions. Thank you for choosing [facility] for your healthcare needs today. Please realize this is an emergency room and that we are providing you with a medical screening exam and this may not be complete and all inclusive of all the testing and or work up that you may need to determine your ailment or severity of your illness. It is very important that you follow up as instructed or that you return to the Emergency Department should you have concerns or if your condition changes or worsens in any way. Coding Level of Care Code ED Patient Portal Concierge for Anuj Ocasio Exam Comprehensive
[2022-02-12 23:25] VITALS: BP 98/54; PULSE 60; RESP 14; TEMP 36.6; O2SAT 97
[2022-02-12] MEDS: ketorolac 60 mg/2 mL INJ IM (23:30)
[2022-02-13] VITALS: BP 100/61; PULSE 59; RESP 14; O2SAT 97
--- NOTE | 2022-02-14 08:52 | DCPLANNER ---
Addendum entered by Kacey Christensen 05/02/22 15:27: Patient had a follow up appointment scheduled with ortho - patient did attend appointment. Addendum entered by Kacey Christensen 02/15/22 14:10: Patient has a follow up appointment scheduled for Tuesday, March 01, 2022 at 8:[address] Magallon at ortho. Clinic will call patient with appointment information. Original Note: certified wellness program manager had message to schedule a follow up appointment for patient with ortho. certified wellness program manager sent patients information to the front office staff at ortho. Patients information will be printed and reviewed. Clinic will call patient with appointment information.
== END 2022-02-13 | disposition home or self-care (01) ==
PROVIDERS: Emergency Provider Physician Assistant; PCP Nurse Practitioner Family
DX: M25.511 Pain in right shoulder (principal); M19.011 Primary osteoarthritis, right shoulder; M75.101 Unspecified rotator cuff tear or rupture of right shoulder, not specified as traumatic
CPT/HCPCS: 73030; 96372; 99284; J1885

== ENCOUNTER → 2022-03-02 11:11 | Outpatient (BNVA) | payer MEDICARE, MEDICAID, SELFPAY ==
[2021-06-29 14:55] VITALS: BP 138/83; BMI 26.3
== END ==
PROVIDERS: PCP Nurse Practitioner Family; Visit Provider Nurse Practitioner Family
DX: M25.511 Pain in right shoulder (principal)
CPT/HCPCS: 99213; 99214

== ENCOUNTER 2022-03-29 06:00 | Outpatient (RCR) | payer MEDICARE, MEDICAID, SELFPAY ==
[2021-06-29 14:55] VITALS: BP 138/83; BMI 26.3
== END 2022-04-20 23:59 | disposition home or self-care (01) ==
LOC: SPT 06:00
PROVIDERS: PCP Nurse Practitioner Family; Visit Provider Nurse Practitioner Family
DX: R26.81 Unsteadiness on feet (principal)
CPT/HCPCS: 97110; 97162

== ENCOUNTER 2022-04-13 12:00 | Outpatient (CLI) | payer MEDICARE, MEDICAID, SELFPAY ==
[2022-04-12 11:16] VITALS: BP 138/83; BMI 26.3
--- NOTE | 2022-04-13 11:00 | MR_ITS ---
WS: [id number] MRI RIGHT SHOULDER NONCONTRAST TECHNIQUE: Sagittal T2, coronal T1, T2 and proton density imaging. Axial gradient PDE imaging. CLINICAL INFORMATION: pain COMPARISON: None. FINDINGS: Moderate degenerative arthritis AC joint. Synovial thickening with mild edema at the AC joint. Small amount of subacromial fluid. Slight impingement on the distal supraspinatus with mild narrowing of th e subacromial space. Mild chronic thinning of the distal supraspinatus. Normal infraspinatus. Normal teres minor. Tendinopathy distal supraspinatus. Tiny insertional tear at the supraspinatus insertion. No tendon retraction. Tear of the distal subscapularis tendon. Biceps tendon dislocated from the bicipital groove medially. Fluid along the biceps tendon sheath. Biceps labral anchor appears intact. Intra-articular biceps te ndon appears intact. Hypertrophic spurring along the humeral neck. Advanced narrowing of the glenohum eral articulation. MR/MR shoulder RT wo con* [id number] IMPRESSION: 1. Moderate degenerative arthritis AC joint with mild edema. 2. Slight impingement on the distal supraspinatus with a tiny insertional tear . No tendon retraction. 3. Infraspinatus and teres minor are intact. 4. High-grade tear of the distal subscapularis with medial dislocation of the biceps tendon from the bicipital groove. Intra-articular biceps tendon appears intact. 5. Biceps labral anchor appears intact.
== END 2022-04-13 12:01 | disposition home or self-care (01) ==
LOC: RAD 12:00
PROVIDERS: PCP Nurse Practitioner Family; Visit Provider Nurse Practitioner Family
DX: M19.011 Primary osteoarthritis, right shoulder (principal); M75.101 Unspecified rotator cuff tear or rupture of right shoulder, not specified as traumatic
CPT/HCPCS: 73221

== ENCOUNTER 2022-04-21 06:00 | Outpatient (RCR) | payer MEDICARE, MEDICAID, SELFPAY ==
[2022-04-12 11:16] VITALS: BP 138/83; BMI 26.3
== END 2022-05-21 23:59 | disposition home or self-care (01) ==
LOC: SPT 06:00
PROVIDERS: PCP Nurse Practitioner Family; Visit Provider Nurse Practitioner Family
DX: R26.81 Unsteadiness on feet (principal)
CPT/HCPCS: 97110

== ENCOUNTER → 2022-05-04 14:20 | Outpatient (BNVA) | payer MEDICARE, SELFPAY ==
[2022-04-12 11:16] VITALS: BP 138/83; BMI 26.3
== END ==
PROVIDERS: PCP Nurse Practitioner Family; Referring Provider Nurse Practitioner Family; Visit Provider Nurse Practitioner Family
DX: M75.121 Complete rotator cuff tear or rupture of right shoulder, not specified as traumatic
CPT/HCPCS: 99214

== ENCOUNTER 2022-07-08 09:40 | Outpatient (CLI) | payer MEDICARE, SELFPAY ==
[2022-04-12 11:16] VITALS: BP 138/83; BMI 26.3
--- NOTE | 2022-07-08 10:07 | CT_ITS ---
WS: [id number] LDCT LUNG CANCER SCREENING TECHNIQUE: Noncontrast CT of the chest with coronal and sagittal reformatted images. CLINICAL INFORMATION: HX OF TOBACCO USE COMPARISON: None. DLP: 76.42 mGy.cm DIvol: Mean CTDIvol: 1.60 (mGy) All CT scans at [facility] use at least one of these dose optimization techniques: automat ed exposure control; mA and/or kV adjustment per patient size (includes targeted exams where dose is matched to clinical indication); or iterative reconstruction. FINDINGS:Mild chronic emphysematous changes. Slight bibasilar atelectasis. Subsegmental atelectasis L EFT lower lobe. No suspicious pulmonary parenchymal normalities. Normal caliber thoracic aorta. Aortic calcification. Coronary calcification. No mediastinal or hilar lymphadenopathy. No axillary lymphadenopathy. Calcified LEFT thyroid nodule measuring 11 mm. Adrenal glands are normal. Small esophageal hiatal hernia. Thoracic curve. Mild spondylitic changes t horacic spine. CT/CT lung screening [id number] IMPRESSION: LUNG-RADS: 1-Negative FOLLOW UP: 12 Month: Continue annual screening with LDCT
== END 2022-07-08 09:41 | disposition home or self-care (01) ==
PROVIDERS: PCP Family Medicine; Visit Provider Family Medicine
DX: Z12.2 Encounter for screening for malignant neoplasm of respiratory organs (principal); Z87.891 Personal history of nicotine dependence
CPT/HCPCS: 71271

== ENCOUNTER 2022-07-15 06:13 | Day surgery (SDC) | payer MEDICARE, MEDICAID, SELFPAY ==
[2022-04-12 11:16] VITALS: BP 138/83; BMI 26.3
[2022-07-13 09:08] VITALS: BMI 23.3
[2022-07-15] MEDS: sodium chloride 0.9% 1,000 ML 30 ML IV (06:36)
[2022-07-15 06:37] VITALS: BP 133/76; PULSE 61; RESP 16; TEMP 36.4; O2SAT 100
--- NOTE | 2022-07-15 06:50 | P.ANESASSM_ITS ---
Pre-Anesthetic Assessment Height/Weight: Height 1.65 m Weight 63.503 kg Temp Pulse Resp BP Pulse Ox O2 Del Method 97.6 F 61 16 133/76 100 07/15/22 06:37 07/15/22 06:37 07/15/22 06:37 07/15/22 06:37 07/15/22 06:37 07/15/22 06:37 Preop Diagnosis: screening Operation Date: 07/15/22 07:00 Proposed Procedures p Colonoscopy 75604,Z12.11(Not Applicable) - Jesse Morrison DO Familial anesthetic complications: none Was Beta Aliyah taken within 24 hours: N/A Was Clonidine taken within 24 hours: N/A Last intake: Intake Last Liquid Date 07/14/22 Last Liquid Time 22:00 Last Solid Date 07/13/22 Last Solid Time 22:00 Social No alcohol and No tobacco Exam oriented x 3 and clear to auscultation bilaterally Airway Submandibular: within normal limits Cervical ROM: within normal limits Mallampati: Class III Dentition: chipped and full History/ROS No significant history except as noted Pulmonary None reported CV/HEM Afib in past resolved with ablation therapy None reported Hepatic None reported GI Peptic Ulcer Disease states current pain from ulcer Metabolic None reported Musc/skel Lower Back Pain neck pain Neuropsych Anxiety and Depression major depression Anesthetic Plan ASA status: 2 Anesthesia: Anesthesia Evaluation and MAC Risk of > 500 ml blood loss (7ml/kg in children): No Medications/Allergies Home Medications Medication Instructions Recorded Confirmed Last Taken Type pantoprazole 40 mg tablet,delayed 40 mg PO DAILY #180 tabs 08/31/21 07/15/22 07/14/22 Rx release meclizine 25 mg tablet 25 mg PO BID PRN Vertigo 11/10/21 07/15/22 07/14/22 History acyclovir 400 mg tablet 400 mg PO DAILY 01/26/22 07/15/22 07/14/22 History calcium carbonate 200 mg-magnesium 1 tab PO DAILY 01/26/22 07/15/22 07/14/22 History oxide,carbonate 100 mg chew tablet (Gerard-Mag) cholecalciferol (vitamin D3) 25 25 mcg PO DAILY 01/26/22 07/15/22 07/14/22 History mcg (1,000 unit) capsule (Vitamin D3) cyanocobalamin (vitamin B-12) 1,000 mcg PO DAILY 01/26/22 07/15/22 07/14/22 History 1,000 mcg tablet (Vitamin B-12) levothyroxine 25 mcg tablet 25 mcg PO QAM 01/26/22 07/15/22 07/14/22 History omega-3 fatty acids 1,000 mg 3,000 mg PO DAILY 01/26/22 07/15/22 07/14/22 History capsule gabapentin 400 mg capsule 400 mg PO TID #90 caps 03/31/22 07/15/22 07/14/22 Rx metoprolol succinate 25 mg 25 mg PO BEDTIME #30 tabs 04/12/22 07/15/22 07/14/22 Rx tablet,extended release 24 hr bupropion HCl 200 mg tablet,12 hr 200 mg PO BID #180 tabs 06/08/22 07/15/22 07/14/22 Rx sustained-release (Wellbutrin SR) diazepam 5 mg tablet (Valium) 5 mg PO QID PRN anxiety #120 tabs 06/08/22 07/15/22 07/14/22 Rx duloxetine 60 mg capsule,delayed 120 mg PO DAILY #180 caps 06/08/22 07/15/22 07/14/22 Rx release (Cymbalta) methylphenidate HCl 10 mg tablet 15 mg PO BID 30 days #90 tabs 06/24/22 07/15/22 07/14/22 Rx (Ritalin) buspirone 10 mg tablet 10 mg PO TID #180 tabs 06/29/22 07/15/22 07/14/22 Rx celecoxib 100 mg capsule 100 mg PO DAILY PRN Pain 07/13/22 07/15/22 07/14/22 History Allergies Allergy/AdvReac Type Severity Reaction Status Date / Time Cpwnqtu-OZI-DaT Reductase Allergy Unknown Verified 07/15/22 06:32 Inhibitor [Ttuulgq-Zpq-Bme Reductase Inhibitor] Current Medications Generic Name Dose Route Start Last Admin Trade Name Freq PRN Reason Stop Dose Admin Sodium Chloride 1,000 mls @ 30 mls/hr 07/15/22 06:30 07/15/22 06:36 Sodium Chloride 0.9% IV 07/16/22 06:29 30 mls/hr .Q24H SAHARA Administration PFSH Anesthesia Medical History Attention-deficit hyperactivity disorder, predominantly inattentive type Chronic narcotic use Chronic posttraumatic stress disorder Drug abuse, nondependent Encounter for narcotic contract discussion Facet arthritis of lumbosacral region Generalized anxiety disorder Hx of nephrolithotomy with removal of calculi Major depressive disorder, recurrent, moderate Narcotic use agreement exists Psychiatric care Trochanteric bursitis of left hip Trochanteric bursitis of right hip Surgical History History of carpal tunnel surgery Family History Father CAD (coronary artery disease) Mother Alzheimer disease Social History Second hand smoke exposure: No Alcohol intake: former Adopted: No Caregiver/support person: No Lives independently: Yes Household members: none Housing: Apartment Marital status: Single Number of children: 0 Highest education level completed: Some College, No Degree 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
--- NOTE | 2022-07-15 07:03 | PM.HP ---
Providers/Chief Complaint Primary Care Provider: Chevy Walsh MD Chief Complaint: Encounter for screening for malignant neoplasm History of Present Illness Ijeoma Schroeder is a 66 year old female who presents for a screening colonoscopy. She reports that her last colonoscopy was over 10 years ago and no polyps were identified. She denies any family history of colon cancer, personal history of nausea, emesis, diarrhea, constipation, hematochezia and/or melena. Medications/Allergies Home Medications Medication Instructions Recorded Confirmed Last Taken Type pantoprazole 40 mg tablet,delayed 40 mg PO DAILY #180 tabs 08/31/21 07/15/22 07/14/22 Rx release meclizine 25 mg tablet 25 mg PO BID PRN Vertigo 11/10/21 07/15/22 07/14/22 History acyclovir 400 mg tablet 400 mg PO DAILY 01/26/22 07/15/22 07/14/22 History calcium carbonate 200 mg-magnesium 1 tab PO DAILY 01/26/22 07/15/22 07/14/22 History oxide,carbonate 100 mg chew tablet (Gerard-Mag) cholecalciferol (vitamin D3) 25 25 mcg PO DAILY 01/26/22 07/15/22 07/14/22 History mcg (1,000 unit) capsule (Vitamin D3) cyanocobalamin (vitamin B-12) 1,000 mcg PO DAILY 01/26/22 07/15/22 07/14/22 History 1,000 mcg tablet (Vitamin B-12) levothyroxine 25 mcg tablet 25 mcg PO QAM 01/26/22 07/15/22 07/14/22 History omega-3 fatty acids 1,000 mg 3,000 mg PO DAILY 01/26/22 07/15/22 07/14/22 History capsule gabapentin 400 mg capsule 400 mg PO TID #90 caps 03/31/22 07/15/22 07/14/22 Rx metoprolol succinate 25 mg 25 mg PO BEDTIME #30 tabs 04/12/22 07/15/22 07/14/22 Rx tablet,extended release 24 hr bupropion HCl 200 mg tablet,12 hr 200 mg PO BID #180 tabs 06/08/22 07/15/22 07/14/22 Rx sustained-release (Wellbutrin SR) diazepam 5 mg tablet (Valium) 5 mg PO QID PRN anxiety #120 tabs 06/08/22 07/15/22 07/14/22 Rx duloxetine 60 mg capsule,delayed 120 mg PO DAILY #180 caps 06/08/22 07/15/22 07/14/22 Rx release (Cymbalta) methylphenidate HCl 10 mg tablet 15 mg PO BID 30 days #90 tabs 06/24/22 07/15/22 07/14/22 Rx (Ritalin) buspirone 10 mg tablet 10 mg PO TID #180 tabs 06/29/22 07/15/22 07/14/22 Rx celecoxib 100 mg capsule 100 mg PO DAILY PRN Pain 07/13/22 07/15/22 07/14/22 History Allergies Allergy/AdvReac Type Severity Reaction Status Date / Time Tqsrdrd-NOI-ZbF Reductase Allergy Unknown Verified 07/15/22 06:32 Inhibitor [Krcsbbc-Wqj-Uil Reductase Inhibitor] PFSH Acute PFSH: Medical History (Updated 07/15/22 @ 07:04 by Jesse Morrison DO) Attention-deficit hyperactivity disorder, predominantly inattentive type Chronic narcotic use Chronic posttraumatic stress disorder Drug abuse, nondependent Encounter for narcotic contract discussion Facet arthritis of lumbosacral region Generalized anxiety disorder Hx of nephrolithotomy with removal of calculi Major depressive disorder, recurrent, moderate Narcotic use agreement exists Psychiatric care Trochanteric bursitis of left hip Trochanteric bursitis of right hip Surgical History (Updated 07/15/22 @ 07:04 by Jesse Morrison DO) History of bunionectomy of both great toes History of carpal tunnel surgery History of radiofrequency ablation procedure for cardiac arrhythmia A-fib History of renal stent Family History Father CAD (coronary artery disease) Mother Alzheimer disease Social History Second hand smoke exposure: No Alcohol intake: former Adopted: No Caregiver/support person: No Lives independently: Yes Household members: none Housing: Apartment Marital status: Single Number of children: 0 Highest education level completed: Some College, No Degree 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 Current occupational status: retired and disabled Pets and animals: Yes Pets & animals: dog(s) History of recent travel: No Leisure activites: other Leisure activities details: arlette, likes being near water Current gender identity: Female Nunu/Sikhism: Anabaptist Special nunu needs: No Agree to transfusion: Yes Financial difficulty paying for basics: Not Very Hard Vitals/I&O/Wt Last Vital Signs Temp 97.6 F 07/15/22 06:37 Pulse 61 07/15/22 06:37 Resp 16 07/15/22 06:37 BP 133/76 07/15/22 06:37 Pulse Ox 100 07/15/22 06:37 O2 Del Method 07/15/22 06:37 Weight last 48 hrs Weight 140 lb A&P Assessment and plan (1) Colon cancer screening: Plan Colonoscopy The risks and benefits of the procedure, including bleeding, infection, intestinal perforation requiring surgery, missed lesion were explained to the patient. The patient is understanding of the risks and wishes to proceed. Attestations Medical Necessity Statement*: Home Coding Level of Care Code Acute Code for Chg Fwd Diagnoses Colon cancer screening Z12.11
[2022-07-15 07:33] VITALS: BP 92/57; PULSE 55; RESP 12; TEMP 36.1; O2SAT 100
--- NOTE | 2022-07-15 07:39 | ANE.PACU2 ---
Inpatient post-anesthesia follow up: Airway intact: Yes Vital signs: Temperature 97.0 F Pulse Rate 55 Respiratory Rate 12 Blood Pressure 92/57 Pulse Oximetry 100 Oxygen Delivery Me thod Room Air Oxygen Flow Rate Fraction of Inspir ed Oxygen Hydration adequate: Yes Nausea and vomiting: No Pain level: 0 Mental status: Baseline
[2022-07-15 07:40] VITALS: BP 113/67; PULSE 55; RESP 12; O2SAT 97
[2022-07-15 07:50] VITALS: BP 119/80; PULSE 58; RESP 18; O2SAT 98
--- NOTE | 2022-07-15 17:57 | ANE.PACU2 ---
Inpatient post-anesthesia follow up: Airway intact: Yes Vital signs: Temperature 97.0 F Pulse Rate 58 Respiratory Rate 18 Blood Pressure 119/80 Pulse Oximetry 98 Oxygen Delivery Me thod Room Air Oxygen Flow Rate Fraction of Inspir ed Oxygen Hydration adequate: Yes Nausea and vomiting: No Pain level: 1 Mental status: Baseline
== END 2022-07-15 08:20 | disposition home or self-care (01) ==
PROVIDERS: PCP Family Medicine; Visit Provider Surgery
PROC: 0DJD8ZZ Inspection of Lower Intestinal Tract, Via Natural or Artificial Opening Endoscopic (ICD-10-PCS; CPT 45378; principal; 2022-07-15 07:00)
DX: Z12.11 Encounter for screening for malignant neoplasm of colon (principal); F41.1 Generalized anxiety disorder; Z87.11 Personal history of peptic ulcer disease
CPT/HCPCS: G0121; J2704; J3490; J7030

== ENCOUNTER → 2022-07-27 09:03 | Outpatient (BNVA) | payer MEDICARE, MEDICAID, SELFPAY ==
[2022-04-12 11:16] VITALS: BP 138/83; BMI 26.3
== END ==
PROVIDERS: PCP Family Medicine; Referring Provider Family Medicine; Visit Provider Anesthesiology Pain Medicine
DX: M54.2 Cervicalgia (principal); M19.011 Primary osteoarthritis, right shoulder; M54.50 Low back pain, unspecified; M79.604 Pain in right leg; M79.605 Pain in left leg
CPT/HCPCS: 99204

== ENCOUNTER → 2022-08-04 14:52 | Outpatient (BNVA) | payer MEDICARE, MEDICAID, SELFPAY ==
[2022-04-12 11:16] VITALS: BP 138/83; BMI 26.3
== END ==
PROVIDERS: PCP Family Medicine; Referring Provider Family Medicine; Visit Provider Orthopaedic Surgery
DX: M47.816 Spondylosis without myelopathy or radiculopathy, lumbar region (principal)
CPT/HCPCS: 72110; 99204

== ENCOUNTER → 2022-08-30 09:16 | Outpatient (BNVA) | payer MEDICARE, MEDICAID, OTHER, SELFPAY ==
[2022-04-12 11:16] VITALS: BP 138/83; BMI 26.3
== END ==
PROVIDERS: PCP Family Medicine; Visit Provider Anesthesiology Pain Medicine
DX: M50.30 Other cervical disc degeneration, unspecified cervical region (principal); M19.011 Primary osteoarthritis, right shoulder; M47.817 Spondylosis without myelopathy or radiculopathy, lumbosacral region; M51.36 Other intervertebral disc degeneration, lumbar region; M70.61 Trochanteric bursitis, right hip; F43.12 Post-traumatic stress disorder, chronic; Y93.9 Activity, unspecified
CPT/HCPCS: 99214

== ENCOUNTER 2022-10-10 11:46 | Outpatient (CLI) | payer MEDICARE, MEDICAID, SELFPAY ==
[2022-04-12 11:16] VITALS: BP 138/83; BMI 26.3
--- NOTE | 2022-10-10 11:57 | MM_ITS ---
WS: [id number] BILATERAL 3D TOMOSYNTHESIS DIGITAL SCREENING MAMMOGRAPHY WITH CAD CLINICAL INFORMATION: SCREENING HISTORY: Screening mammogram. No current complaints. COMPARISON: 2020 TECHNIQUE: Bilateral CC and MLO views. FINDINGS: The breasts are composed of heterogeneous fibroglandular density tissue, which can limit the detectio n of small underlying mass lesions. No suspicious mass, asymmetry, calcifications, or architectural d istortion. No evidence of malignancy. Punctate and lucent centered calcifications. MM/[place] [id number] IMPRESSION: BI-RADS: 2-Benign FOLLOW UP: 1 Year Follow-up Recommend return to annual screening mammography.
== END 2022-10-10 11:47 | disposition home or self-care (01) ==
PROVIDERS: PCP Family Medicine; Visit Provider Family Medicine
DX: Z12.31 Encounter for screening mammogram for malignant neoplasm of breast (principal)
CPT/HCPCS: 77063; 77067

== ENCOUNTER → 2022-10-11 15:38 | Outpatient (BNVA) | payer MEDICARE, MEDICAID, SELFPAY ==
[2022-04-12 11:16] VITALS: BP 138/83; BMI 26.3
== END ==
PROVIDERS: PCP Family Medicine; Referring Provider Family Medicine; Visit Provider Dermatology
DX: D23.39 Other benign neoplasm of skin of other parts of face (principal); Z85.820 Personal history of malignant melanoma of skin; Z87.891 Personal history of nicotine dependence; L82.1 Other seborrheic keratosis; L72.0 Epidermal cyst; D23.71 Other benign neoplasm of skin of right lower limb, including hip; I83.91 Asymptomatic varicose veins of right lower extremity; L81.4 Other melanin hyperpigmentation
CPT/HCPCS: 99203

== ENCOUNTER 2022-10-16 12:55 | Emergency (ER) | payer MEDICARE, MEDICAID, SELFPAY ==
[2022-04-12 11:16] VITALS: BP 138/83; BMI 26.3
[2022-10-16 13:02] VITALS: BP 132/73; PULSE 70; RESP 16; TEMP 36.8; O2SAT 98; BMI 23.3
--- NOTE | 2022-10-16 13:51 | XRR_ITS ---
PROCEDURE INFORMATION: Exam: XR Abdomen Exam date and time: 10/16/2022 2:05 PM Age: 66 years old Clinical indication: Abdominal pain; Localized; Right; Additional info: Abd pain TECHNIQUE: Imaging protocol: Radiologic exam of the abdomen. Views: Frontal supine view of the abdomen. 1 View. COMPARISON: CT abdomen pelvis w con* [id number] 12/19/2019 7:33 PM FINDINGS: Gastrointestinal tract: No significant dilatation of bowel loops or bowel distention. Large stool content is seen in the colon suggestive of constipation. Intraperitoneal space: No indication of free air. Bones/joints: Spondylotic change lumbar spine. Other findings: No abnormal calcifications are seen. XR/XR KUB [id number] IMPRESSION: Nonspecific nonobstructive bowel gas pattern. Large stool content suggestive of constipation.
--- NOTE | 2022-10-16 13:53 | W.ED.ABDPA2 ---
HPI - Abdominal Pain General: Chief Complaint: Abdominal Pain Stated Complaint: right abd pain, right arm pain, neck pain Time Seen by Provider: 10/16/22 13:16 Source: patient Mode of arrival: ambulatory Limitations: no limitations History of Present Illness: 66-year-old female states that back in February she was walking down steps and missed stepped and strained her right abdomen she states she has had abdominal pain since then its been constant daily states to sharp pain she rates it a 5 out of 10 currently she been on tramadol states that has helped the pain states that today though encouraged her to having some shooting pain in her neck and her arm states that since resolved denies any vomiting denies any diarrhea denies any dysuria Associated Symptoms: Denies chills, diarrhea, dysuria, fever(s), nausea and vomiting Review of Systems Const: Denies: fever(s), chills, body aches or change in appetite Eyes: Denies: blurry vision or eye discomfort ENMT: Denies: throat pain or dental pain Card: Denies: chest pain Resp: Denies: dyspnea GI: Reports: abdominal pain; Denies: nausea, vomiting or diarrhea : Denies: dysuria Musc: Reports: neck pain; Denies: back pain Skin/Breast: Denies: rash Neuro: Denies: headache(s) PFSH ED PFSH: Medical History Attention-deficit hyperactivity disorder, predominantly inattentive type Chronic narcotic use Chronic posttraumatic stress disorder Drug abuse, nondependent Encounter for narcotic contract discussion Facet arthritis of lumbosacral region Generalized anxiety disorder Hx of nephrolithotomy with removal of calculi Major depressive disorder, recurrent, moderate Narcotic use agreement exists Psychiatric care Trochanteric bursitis of left hip Trochanteric bursitis of right hip Surgical History History of bunionectomy of both great toes History of carpal tunnel surgery History of radiofrequency ablation procedure for cardiac arrhythmia A-fib History of renal stent Family History Father CAD (coronary artery disease) Mother Alzheimer disease Social History Smoking and tobacco status: former smoker Second hand smoke exposure: No Alcohol intake: former Substance/Drug Use: never Adopted: No Caregiver/support person: No Lives independently: Yes Household members: none Housing: Apartment Marital status: Single Number of children: 0 Highest education level completed: Some College, No Degree Education level details: ELECTRICAL ESTIMATOR service: No Current occupational status: retired and disabled Pets and animals: Yes Pets & animals: dog(s) Leisure activites: other Leisure activities details: kayak, likes being near water Do you think of yourself as: Straight/Heterosexual Current gender identity: Female Nunu/Roman Catholic: Hoahaoism Special nunu needs: No Agree to transfusion: Yes Financial difficulty paying for basics: Not Very Hard Physical Exam Const: COMMON NORMALS: no acute distress, patient oriented x3 and healthy appearing HENMT: COMMON NORMALS: normocephalic and atraumatic HEAD & SCALP: normocephalic and atraumatic Eye: COMMON NORMALS: conjunctivae normal CONJUNCTIVA: Yes conjunctivae normal Neck/C-Spine: COMMON NORMALS: full ROM and supple Chest: COMMONS NORMALS: normal inspection of the chest Resp: COMMON NORMALS: normal respiratory effort Cardio: COMMON NORMALS: regular rate, regular rhythm and No murmurs present (Cardio) RATE: regular rate RHYTHM: regular rhythm GI: COMMON NORMALS: Normal to inspection, nondistended, normoactive bowel sounds present, Soft to palpation, non-tender and no masses PALPATION: Yes Soft to palpation Extremity: COMMON NORMALS: normal to inspection and full ROM Neuro: COMMON NORMALS: patient oriented x3, moves all extremities and no focal motor deficits Psych: COMMON NORMALS: mental status grossly normal, Normal thought process present and cooperative THOUGHT PROCESS: Normal thought process present Skin: COMMON NORMALS: no rashes or lesions noted and no wounds GENERAL SKIN EXAM: no rashes or lesions noted Course Vital Signs: Vital signs: Vital Signs Temperature 98.2 F 10/16/22 13:02 Pulse Rate 70 10/16/22 13:02 Respiratory Rate 16 10/16/22 13:02 Blood Pressure 132/73 10/16/22 13:02 Pulse Oximetry 98 10/16/22 13:02 Oxygen Delivery Me thod Room Air 10/16/22 13:02 MDM - Abdominal Pain Medical Decision Making Patient presents with abdominal pain likely from a constipation her x-ray shows severe constipation her abdominal exam is benign no signs of acute surgical abdomen blood work is normal we will place her on MiraLAX she is stable for discharge she is to follow-up with PCP and return if worsening she understands agrees to plan. Medical Records I reviewed the patient's medical records. Lab Data I reviewed the patient's lab results. 10/16/22 13:44 10/16/22 13:44 Labs/Radiology: Laboratory Results WBC 7.4 10^3/uL (4.0-10.0) 10/16/22 13:44 RBC 4.15 10^6/uL (4.1-5.3) 10/16/22 13:44 Hgb 13.4 g/dL (11.5-15.3) 10/16/22 13:44 Hct 41.4 % (37.0-47.0) 10/16/22 13:44 MCV 99.8 fl (81-99) H 10/16/22 13:44 MCH 32.3 pg (28.0-34.0) 10/16/22 13:44 MCHC 32.4 g/dL (30.0-36.0) 10/16/22 13:44 RDW 12.3 % (12.1-15.1) 10/16/22 13:44 Plt Count 276 10^3/cmm (130-400) 10/16/22 13:44 MPV 9.4 fL (7.4-10.4) 10/16/22 13:44 Neut % (Auto) 54.7 % 10/16/22 13:44 Lymph % (Auto) 34.8 % 10/16/22 13:44 [place] % (Auto) 7.9 % 10/16/22 13:44 Eos % (Auto) 1.8 % 10/16/22 13:44 Baso % (Auto) 0.5 % 10/16/22 13:44 Neut # (Auto) 4.04 10^3/uL (1.8-7.7) 10/16/22 13:44 Lymph # (Auto) 2.6 10^3/uL (0.8-4.8) 10/16/22 13:44 [place] # (Auto) 0.6 10^3/uL (0.2-0.9) 10/16/22 13:44 Eos # (Auto) 0.1 10^3/uL (0.0-0.8) 10/16/22 13:44 Baso # (Auto) 0.0 10^3/uL (0.0-0.1) 10/16/22 13:44 Nucleated RBC % (auto) 0 % 10/16/22 13:44 Nucleated RBCs # 0.0 /100WBC 10/16/22 13:44 Sodium 140 mmol/L (136-145) 10/16/22 13:44 Potassium 4.1 mmol/L (3.5-5.1) 10/16/22 13:44 Chloride 103 mmol/L (98-107) 10/16/22 13:44 Carbon Dioxide 28 mmol/L (22-29) 10/16/22 13:44 Anion Gap 13.1 (5-19) 10/16/22 13:44 BUN 18 mg/dL (8-23) 10/16/22 13:44 Creatinine 0.7 mg/dL (0.5-0.9) 10/16/22 13:44 GFR Calculation 83.5 mL/min (90-130) L 10/16/22 13:44 Glucose 83 mg/dL (65-115) 10/16/22 13:44 Calculated Osmolality 291 mOsm/kg (285-295) 10/16/22 13:44 Calcium 9.7 mg/dL (8.5-10.5) 10/16/22 13:44 Total Bilirubin 0.4 mg/dL (0.15-1.2) 10/16/22 13:44 AST 21 U/L (0-32) 10/16/22 13:44 ALT 16 U/L (0-33) 10/16/22 13:44 Alkaline Phosphatase 83 U/L (35-105) 10/16/22 13:44 Total Protein 7.1 g/dL (6.6-8.7) 10/16/22 13:44 Albumin 4.2 g/dL (3.5-5.2) 10/16/22 13:44 Globulin 2.9 g/dL (1.3-4.6) 10/16/22 13:44 Lipase 20 U/L (13-60) 10/16/22 13:44 EKG Data EKG 1: I personally reviewed and interpreted this EKG as follows: EKG interpretation date: 10/16/22 EKG interpretation time: 14:03 Interpretation: nsr hr [address] or t wave abnormaliteis qrs 98 qtc 415 Discharge Plan Discharge Patient Disposition: Home Clinical Impression: Abdominal pain, Constipation Condition: Stable Prescriptions: New Miralax 17 gram powder in packet 17 g PO BID PRN (Reason: constipation) Qty: 14 0RF No Action acetaminophen [Tylenol Extra Strength] 500 mg tablet 500 mg PO Q6H PRN meclizine 25 mg tablet 25 mg PO BID PRN (Reason: Vertigo) bupropion HCl [Wellbutrin SR] 200 mg tablet sustained-release 12 hr 200 mg PO BID Qty: 180 0RF tramadol 50 mg tablet 50 mg PO BID PRN aripiprazole [Abilify] 2 mg tablet 2 mg PO DAILY Qty: 30 1RF pantoprazole 40 mg tablet,delayed release (DR/EC) 40 mg PO DAILY Qty: 180 0RF gabapentin 400 mg capsule 400 mg PO TID Qty: 90 0RF metoprolol succinate 25 mg tablet extended release 24 hr 25 mg PO BEDTIME Qty: 30 0RF acyclovir 400 mg tablet See Rx Instructions .ROUTE .COMPLEX Qty: 30 0RF Dose Instruction: TAKE 1 TABLET BY MOUTH DAILY Rx Instructions: TAKE 1 TABLET BY MOUTH DAILY; pt needs appt duloxetine [Cymbalta] 60 mg capsule,delayed release(DR/EC) 120 mg PO DAILY Qty: 180 0RF diazepam 10 mg tablet 10 mg PO BID PRN (Reason: anxiety) 1 Days Qty: 60 1RF Rx Instructions: take 1/2- 1 tab twice daily as needed for severe anxiety. Ritalin 10 mg tablet 15 mg PO BID 30 Days Qty: 90 0RF omega-3 fatty acids 1,000 mg Capsule 3,000 mg PO DAILY cyanocobalamin (vitamin B-12) [Vitamin B-12] 1,000 mcg Tablet 1,000 mcg PO DAILY levothyroxine 25 mcg tablet 25 mcg PO QAM cholecalciferol (vitamin D3) [Vitamin D3] 25 mcg (1,000 unit) Capsule 25 mcg PO DAILY Gerard-Mag 200 mg calcium- 100 mg Tablet,Chewable 1 tab PO DAILY celecoxib 100 mg capsule 100 mg PO DAILY PRN (Reason: Pain) Discharge Orders: Discharge ED (Routine); Ordered 10/16/22 Ordered By: Jules Manning Referrals: Chevy Walsh MD [Primary Care Provider] - 1-3 days Discharge Diet: Advance as tolerated Discharge Activity: Resume usual activity Patient Instructions: Constipation (ED), Abdominal Pain (ED) Coding Level of Care Code ED Radiography Technician for Anuj Oacsio
[2022-10-16 14:01] LABS: Basophils % 0.5 %; Eosinophils # 0.1 10^3/uL (0.0-0.8); Eosinophils % 1.8 %; Hematocrit 41.4 % (37.0-47.0); Hemoglobin 13.4 g/dL (11.5-15.3); Lymphocytes # 2.6 10^3/uL (0.8-4.8); Lymphocytes % 34.8 %; Mean Corpuscular HGB Conc 32.4 g/dL (30.0-36.0); Mean Corpuscular Hemoglobin 32.3 pg (28.0-34.0); Mean Corpuscular Volume 99.8 fl (81-99); Mean Platelet Volume 9.4 fL (7.4-10.4); Monocytes # 0.6 10^3/uL (0.2-0.9); Monocytes % 7.9 %; Neutrophils # 4.04 10^3/uL (1.8-7.7); Neutrophils % 54.7 %; Nucleated Red Blood Cells % 0 %; Platelet Count 276 10^3/cmm (130-400); Red Blood Count 4.15 10^6/uL (4.1-5.3); Red Cell Distribution Width 12.3 % (12.1-15.1); White Blood Count 7.4 10^3/uL (4.0-10.0)
[2022-10-16] MEDS: morphine 4 mg/mL SDV 1 mL IM (14:03)
--- NOTE | 2022-10-16 14:03 | ECG_ITS ---
[facility] Test Date: 2022-10-16 Pat Name: Ijeoma Schroeder Department: Room: Gender: Female Cylinder Tester: : [id number] Requested By: Jules Manning Order Number: [id number] Reading MD: Carmelo Gil M.D. Measurements Intervals [place] Rate: 63 P: 19 [place]: 195 QRS: -5 QRSD: 98 T: 24 QT: 408 QTc: 419 Interpretive Statements SINUS RHYTHM INCOMPLETE RIGHT BUNDLE BRANCH BLOCK [90+ ms QRS DURATION, TERMINAL R IN V1/V2, 40+ ms S IN I/aVL/V4/V5/V6] Compared to ECG 01/26/2022 01:13:37 Incomplete right bundle-branch block now present Electronically Signed On 10-17-2022 23:32:55 CDT by Carmelo Gil M.D. [id number]
[2022-10-16] MEDS: ketorolac 30 mg/mL INJ IM (14:04)
--- NOTE | 2022-10-16 14:07 | PC.NURSE ---
pt present with service dog.
[2022-10-16 14:20] LABS: Alanine Aminotransferase 16 U/L (0-33); Albumin Level 4.2 g/dL (3.5-5.2); Alkaline Phosphatase 83 U/L (35-105); Anion Gap 13.1 (5-19); Aspartate Amino Transferase 21 U/L (0-32); Blood Urea Nitrogen 18 mg/dL (8-23); Calcium 9.7 mg/dL (8.5-10.5); Carbon Dioxide 28 mmol/L (22-29); Chloride 103 mmol/L (98-107); Globulin 2.9 g/dL (1.3-4.6); Glomerular Filtration Rate 83.5 mL/min (90-130); Glucose 83 mg/dL (65-115); Lipase 20 U/L (13-60); Osmolality Calculated 291 mOsm/kg (285-295); Potassium 4.1 mmol/L (3.5-5.1); Sodium 140 mmol/L (136-145); Total Bilirubin 0.4 mg/dL (0.15-1.2); Total Protein 7.1 g/dL (6.6-8.7)
[2022-10-16] MEDS: lactulose oral liq 20 gm/30 mL UDC 30 GM PO (14:28)
== END 2022-10-16 14:39 | disposition home or self-care (01) ==
PROVIDERS: Emergency Provider Emergency Medicine; PCP Family Medicine
DX: K59.00 Constipation, unspecified (principal); R10.9 Unspecified abdominal pain
CPT/HCPCS: 36415; 74018; 80053; 83690; 85025; 93005; 96372; 99285; J1885; J2270

== ENCOUNTER 2022-10-24 15:00 | Outpatient (CLI) | payer MEDICARE, MEDICAID, SELFPAY ==
[2022-04-12 11:16] VITALS: BP 138/83; BMI 26.3
--- NOTE | 2022-10-24 15:16 | XR_ITS ---
WS: [id number] DEXA (DUAL ENERGY X-RAY ABSORPTIOMETRY) Bone mineral density was performed using a [employer] machine. HISTORY: OSTEOPOROSIS SCREENING COMPARISON: None available. Lumbar spine BMD (L1-L4): 1.465 T score: 2.2 Z score: 3.9 Total hip BMD: Left: 0.893 g/cm2. T score: -0.9 Z score: 0.5 Right: 0.900 g/cm2. T score: -0.9 Z score: 0.5 10 year probability of a major osteoporotic fracture is 9.5%. XR/XR DEXA axial skeleton* [id number] IMPRESSION: NORMAL BONE MINERAL DENSITY based upon the WHO classification for females.
--- NOTE | 2022-10-24 15:17 | XRR_ITS ---
PROCEDURE INFORMATION: Exam: XR Abdomen Exam date and time: 10/24/2022 3:49 PM Age: 66 years old Clinical indication: Abdominal pain; Localized; Right lower quadrant (rlq); Additional info: Abdominal pain, rlq TECHNIQUE: Imaging protocol: Radiologic exam of the abdomen. Views: 3 or more views. COMPARISON: CR (ABDOMEN, ) 10/16/2022 2:05 PM FINDINGS: Gastrointestinal tract: Normal. No bowel dilation. Intraperitoneal space: Normal. No free air. Bones/joints: Grade 1 anterolisthesis of L5 on S1. Moderate to severe multilevel degenerative disc disease of the thoracolumbar spine. XR/XR abdomen 3V [id number] IMPRESSION: No acute findings.
--- NOTE | 2022-10-24 15:17 | XRR_ITS ---
PROCEDURE INFORMATION: Exam: XR Right Ankle Exam date and time: 10/24/2022 3:49 PM Age: 66 years old Clinical indication: Pain and injury or trauma; Fall; Sprain or strain; Ankle; Right; Additional info: Ankle pain right TECHNIQUE: Imaging protocol: Radiologic exam of the right ankle. Views: 3 or more views. COMPARISON: [place] [id number] ORTH 01/07/2019 5:06 PM FINDINGS: Bones/joints: Potential tiny avulsed fragments at the lateral malleolus. Otherwise, the rest of the osseous structures of the ankle are intact. Joint spaces are preserved. Soft tissues: Soft tissue swelling along the lateral ankle. XR/XR ankle RT min 3V* [id number] IMPRESSION: Potential tiny avulsed fragments of the lateral malleolus.
== END 2022-10-24 15:01 | disposition home or self-care (01) ==
PROVIDERS: PCP Family Medicine; Visit Provider Family Medicine
DX: Z13.820 Encounter for screening for osteoporosis (principal); M25.571 Pain in right ankle and joints of right foot; R10.31 Right lower quadrant pain
CPT/HCPCS: 73610; 74021; 77080

== ENCOUNTER → 2022-10-26 08:06 | Outpatient (BNVA) | payer MEDICARE, MEDICAID, SELFPAY ==
[2022-04-12 11:16] VITALS: BP 138/83; BMI 26.3
== END ==
PROVIDERS: PCP Family Medicine; Visit Provider Dermatology
DX: L72.0 Epidermal cyst (principal); L72.11 Pilar cyst
CPT/HCPCS: 11402; 12034

== ENCOUNTER 2022-11-09 10:04 | Outpatient (CLI) | payer MEDICARE, MEDICAID, SELFPAY ==
[2022-04-12 11:16] VITALS: BP 138/83; BMI 26.3
--- NOTE | 2022-11-09 10:21 | XR_ITS ---
WS: [id number] EXAMINATION: XR ankle RT min 3V* [id number] REASON FOR EXAM: R ANKLE PAIN COMPARISON: 10/24/2022 ORDER DATE: 11/09/2022 10:39 AM TECHNIQUE: 3 views of the right ankle were obtained. X-RAY FINDINGS: Bones/joints: Potential tiny avulsed fragments at the lateral malleolus. Otherwise, the rest of the osseous structures of the ankle are intact. Joint spaces are preserved. Soft tissues: Soft tissue swelling along the lateral ankle. XR/XR ankle RT min 3V* [id number] IMPRESSION: Potential tiny avulsed fragments of the lateral malleolus. No significant change from previous
--- NOTE | 2022-11-09 10:26 | XRR_ITS ---
PROCEDURE INFORMATION: Exam: XR Abdomen Exam date and time: 11/09/2022 10:40 AM Age: 66 years old Clinical indication: Abdominal pain; Localized; Right; Additional info: Rlq abdominal pain; Right side pull / pain on the abdomen. TECHNIQUE: Imaging protocol: Radiologic exam of the abdomen. Views: 3 or more views. COMPARISON: CR XR abdomen 3V [id number] 10/24/2022 3:49 PM FINDINGS: Gastrointestinal tract: Severe colonic fecal load. Intraperitoneal space: Normal. No free air. Vasculature: Vascular calcifications. Bones/joints: Degenerative changes of the spine. Grade 1 anterolisthesis of L5 over S1. XR/XR abdomen 3V [id number] IMPRESSION: Severe colonic fecal load. Correlation with constipation.
== END 2022-11-09 10:05 | disposition home or self-care (01) ==
PROVIDERS: PCP Family Medicine; Visit Provider Family Medicine
DX: M25.571 Pain in right ankle and joints of right foot (principal); R10.31 Right lower quadrant pain; R93.5 Abnormal findings on diagnostic imaging of other abdominal regions, including retroperitoneum; Z48.02 Encounter for removal of sutures; L72.9 Follicular cyst of the skin and subcutaneous tissue, unspecified; D23.39 Other benign neoplasm of skin of other parts of face; L81.4 Other melanin hyperpigmentation
CPT/HCPCS: 73610; 74021; 99213

== ENCOUNTER → 2022-11-10 15:21 | Outpatient (BNVA) | payer MEDICARE, MEDICAID, SELFPAY ==
[2022-04-12 11:16] VITALS: BP 138/83; BMI 26.3
== END ==
PROVIDERS: PCP Family Medicine; Visit Provider Nurse Practitioner
DX: F41.1 Generalized anxiety disorder (principal); F90.0 Attention-deficit hyperactivity disorder, predominantly inattentive type; Z79.899 Other long term (current) drug therapy
CPT/HCPCS: 80061; 83036

== ENCOUNTER 2022-12-14 12:56 | Outpatient (CLI) | payer MEDICARE, MEDICAID, SELFPAY ==
[2022-11-11 11:35] VITALS: BP 123/78; BMI 25.3
--- NOTE | 2022-12-14 13:19 | MR_ITS ---
WS: [id number] MRI LUMBAR SPINE NONCONTRAST HISTORY: LUMBAR PAIN/SPONDYLOLISTHESIS COMPARISON: None available. TECHNIQUE: Sagittal and axial multisequence imaging is submitted. Marrow edema in T12 and L1. L5 anterolisthesis by 5 mm. Severe disc space narrowing at L4-5 and L5-S1. Conus terminates normally at L1-2 disc level. T12-L1: Diffuse annular disc bulging asymmetric to the RIGHT. RIGHT foraminal disc protrusion. Severe RIGHT foraminal stenosis and moderate LEFT foraminal stenosis. Disc encroaches into the RIGHT subart icular recess also. L1-L2: Diffuse annular disc bulging with a LEFT paracentral disc protrusion causing mild encroachment upon the subarticular recess. Marked bilateral facet arthritis, LEFT greater than RIGHT. Moderate LE FT foraminal stenosis and mild on the RIGHT. L2-L3: Diffuse disc bulging asymmetric to the LEFT. LEFT foraminal disc protrusion with mild bilatera l foraminal stenosis. Bilateral facet joint arthritis. L3-L4: Diffuse annular disc bulging with marked ligamentum flavum and facet arthritis. Moderate centr al, bilateral subarticular recess and mild foraminal stenosis. L4-L5: Marked annular disc bulging. Marked ligamentum flavum and facet arthritis. Moderate central, b ilateral subarticular recess and foraminal stenosis. Most significant encroachment upon the traversin g LEFT L5 nerve root. L5-S1: Diffuse annular disc bulging and facet arthritis. Mild central stenosis. Moderate bilateral arce barticular recess and foraminal stenosis. Paravertebral soft tissues are negative. MR/MR lumbar spine wo con* [id number] IMPRESSION: 1. Severe multilevel degenerative disc disease and facet arthritis. 2. T12-L1: Severe RIGHT and moderate LEFT foraminal stenosis. Moderate size RI GHT foraminal disc protrusion. 3. Moderate LEFT and mild RIGHT foraminal stenosis at L1-2. LEFT paracentral d isc protrusion. 4. Moderate central, bilateral subarticular recess and mild foraminal stenosis at L3-4. 5. Moderate central, bilateral subarticular recess and foraminal stenosis at L 4-5. 6. Moderate bilateral subarticular recess and foraminal stenosis at L5-S1. 7. Grade 1 anterolisthesis of L5.
--- NOTE | 2022-12-14 13:19 | MR_ITS ---
WS: [id number] MRI CERVICAL SPINE NONCONTRAST HISTORY: NECK PAIN COMPARISON: 12/18/2015 Technique: Multiplanar, multisequence noncontrast imaging of the cervical spine. Straightening and slight reversal of the normal cervical lordosis. Disc spaces are narrowed and desiccated throughout. C3 anterolisthesis by 3 mm. Severe disc space dorian rowing at C3-4, C4-5, C5-6 and C6-7. C7 anterolisthesis by 4 mm. Endplate marrow edema at T3 and T4. No signal abnormality in the cord. Craniocervical junction, C1 and C2 relationship, odontoid process and soft tissues are normal. C2-C3: Moderate LEFT foraminal stenosis. C3-C4: Diffuse annular disc bulging and osteophytic ridging and facet arthritis. Mild RIGHT and moder ate LEFT foraminal stenosis. C4-C5: Central disc protrusion with osteophytic ridging and facet arthritis. Moderate to severe centr al and bilateral foraminal stenosis. C5-C6: Diffuse osteophytic ridging and central disc protrusion. Moderate central with severe RIGHT an d moderate LEFT foraminal stenosis. C6-C7: Diffuse annular disc bulge with a central disc protrusion. Bilateral facet joint arthritis. Mo derate central and bilateral foraminal stenosis. C7-T1: Bilateral facet arthritis. Moderate bilateral foraminal stenosis. Paravertebral soft tissues are normal. MR/MR cervical spin wo con* [id number] IMPRESSION: 1. Progression of degenerative spondylitic changes throughout the cervical spi ne since 2015. Multilevel areas of stenosis due to combination of osteophytosis , disc disease and facet arthritis. 2. Advanced degenerative disc disease from C3-4 to C6-7. 3. Moderate LEFT foraminal stenosis at C2-3 and C3-4. 4. Moderate to severe central and bilateral frontal stenosis at C4-5. 5. Moderate central and severe RIGHT and moderate LEFT foraminal stenosis at C 5-6. 6. Moderate central and bilateral foraminal stenosis at C6-7. 7. Moderate bilateral foraminal stenosis at C7-T1.
== END 2022-12-14 12:57 | disposition home or self-care (01) ==
PROVIDERS: PCP Family Medicine; Visit Provider Orthopaedic Surgery
DX: M54.2 Cervicalgia (principal); M43.16 Spondylolisthesis, lumbar region; M47.816 Spondylosis without myelopathy or radiculopathy, lumbar region; M48.061 Spinal stenosis, lumbar region without neurogenic claudication; M51.26 Other intervertebral disc displacement, lumbar region
CPT/HCPCS: 72141; 72148

== ENCOUNTER 2023-01-06 19:24 | Emergency (ER) | payer MEDICARE, MEDICAID, SELFPAY ==
[2022-11-11 11:35] VITALS: BP 123/78; BMI 25.3
[2023-01-06 19:42] VITALS: BP 135/73; PULSE 71; RESP 16; TEMP 36.7; O2SAT 97; BMI 24.5
[2023-01-06 21:46] VITALS: BP 137/77; PULSE 62; RESP 17; TEMP 36.5; O2SAT 99
[2023-01-06] MEDS: ketorolac 60 mg/2 mL INJ IM (23:35)
[2023-01-06 23:36] VITALS: RESP 18
[2023-01-06] MEDS: oxyCODONE-APAP 5-325 mg Tablet 1 TAB PO (23:36)
[2023-01-06] MEDS: dexamethasone 4 mg Tablet 10 MG PO (23:36)
[2023-01-06] MEDS: cephALEXin 500 mg Capsule PO (23:36)
--- NOTE | 2023-01-08 03:41 | ED_ITS ---
HPI - Dental/Oral General: Chief complaint: Dental/Oral Stated complaint: dental pain Time Seen by Provider: 01/06/23 21:51 History of Present Illness: 67-year-old female presenting with dental pain. Pain is to the right lower jaw. She has tenderness in this area. She is trying to find a dentist today without luck. No fever. She has a history of poor dentition Associated symptoms: Denies fever(s) Review of Systems Const: Denies: fever(s) ENMT: Denies: throat pain Card: Denies: chest pain GI: Denies: vomiting PFSH ED PFSH: Medical History (Updated 01/06/23 @ 22:59 by Mike Pardo DO) Attention-deficit hyperactivity disorder, predominantly inattentive type Chronic narcotic use Chronic posttraumatic stress disorder Drug abuse, nondependent Encounter for narcotic contract discussion Facet arthritis of lumbosacral region Generalized anxiety disorder Hx of nephrolithotomy with removal of calculi Major depressive disorder, recurrent, moderate Narcotic use agreement exists Psychiatric care Trochanteric bursitis of left hip Trochanteric bursitis of right hip Surgical History History of bunionectomy of both great toes History of carpal tunnel surgery History of radiofrequency ablation procedure for cardiac arrhythmia A-fib History of renal stent Family History Father CAD (coronary artery disease) Mother Alzheimer disease Social History Smoking and tobacco status: former smoker Quit status (tobacco): has quit using tobacco Year quit tobacco: 2013 Second hand smoke exposure: No Alcohol intake: former Substance/Drug Use: never Adopted: No Caregiver/support person: No Lives independently: Yes Household members: none Housing: Apartment Marital status: Single Number of children: 0 Highest education level completed: Some College, No Degree 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 Current occupational status: retired and disabled Current occupational exposures/hazards: No Pets and animals: Yes Pets & animals: dog(s) Leisure activites: sports, exercise and other Leisure activities details: kayak, likes being near water Do you think of yourself as: Straight/Heterosexual Current gender identity: Female Nunu/Spiritism: Jew Special nunu needs: No Agree to transfusion: No Financial difficulty paying for basics: Not Very Hard Female Reproductive History: Date of menopause: 06/21/16 Physical Exam Const: COMMON NORMALS: no acute distress GENERAL APPEARANCE: cooperative; not ill appearing and not frail appearing HENMT: COMMON NORMALS: normocephalic, atraumatic and Normal external nose present HEAD & SCALP: normocephalic and atraumatic FACE & SINUS: normal facial exam and face symmetric NOSE: Normal external nose present TEETH & GINGIVA: Yes gingiva abnormal (Surrounding teeth numbers 30 and 29) edematous and tender, Yes poor dentition and Yes teeth discoloration Eye: COMMON NORMALS: Equal, round and reactive pupils present and EOMs intact bilaterally PUPIL: Yes Equal, round and reactive pupils present Neck/C-Spine: GENERAL: Yes trachea midline Chest: CHEST: Yes Symmetrical chest wall rise Resp: COMMON NORMALS: normal respiratory effort, No retractions, No use of accessory muscles and clear to auscultation bilaterally AUSCULTATION: clear to auscultation bilaterally Cardio: COMMON NORMALS: regular rate and regular rhythm RATE: regular rate RHYTHM: regular rhythm GI: COMMON NORMALS: Normal to inspection, nondistended, normoactive bowel sounds present Extremity: COMMON NORMALS: no pedal edema Neuro: MOOK COMA SCALE: document GCS findings [place] coma scale eye opening: Spontaneous [place] coma scale verbal response: Orientated [place] coma scale motor response: [place]bey commands [place] coma scale total score: 15 SENSORY EXAM: Yes extremities (intact) Psych: COMMON NORMALS: speech normal SPEECH: Yes normal speech Skin: COMMON NORMALS: no rashes or lesions noted GENERAL SKIN EXAM: no rashes or lesions noted Course Vital Signs: Vital signs: Vital Signs Temperature 97.7 F 01/06/23 21:46 Pulse Rate 62 01/06/23 21:46 Respiratory Rate 18 01/06/23 23:36 Blood Pressure 137/77 01/06/23 21:46 Pulse Oximetry 99 01/06/23 21:46 Oxygen Delivery Me thod Room Air 01/06/23 21:46 MDM - Dental/Oral Medical Decision Making Patient is treated with pain medication and antibiotics. Close outpatient follow-up with a dentist. We will ask our upper caser for help finding the patient a dentist. Discharge Plan Discharge Patient Disposition: Home Clinical Impression: Dental abscess Condition: Stable Prescriptions: New ketorolac 10 mg tablet 10 mg PO TID PRN (Reason: pain) Qty: 10 0RF cephalexin 500 mg capsule 500 mg PO Q6H 10 Days Qty: 40 0RF No Action acetaminophen [Tylenol Extra Strength] 500 mg tablet 500 mg PO Q6H PRN aripiprazole [Abilify] 2 mg tablet 2 mg PO DAILY Qty: 30 1RF bupropion HCl [Wellbutrin SR] 200 mg tablet sustained-release 12 hr 200 mg PO BID Qty: 180 0RF duloxetine [Cymbalta] 60 mg capsule,delayed release(DR/EC) 120 mg PO DAILY Qty: 180 0RF diazepam 10 mg tablet 10 mg PO BID PRN (Reason: anxiety) 1 Days Qty: 60 1RF Rx Instructions: take 1/2- 1 tab twice daily as needed for severe anxiety. meclizine 25 mg tablet 25 mg PO BID PRN (Reason: Vertigo) tramadol 50 mg tablet 50 mg PO BID PRN pantoprazole 40 mg tablet,delayed release (DR/EC) 40 mg PO DAILY Qty: 180 0RF gabapentin 400 mg capsule 400 mg PO TID Qty: 90 0RF metoprolol succinate 25 mg tablet extended release 24 hr 25 mg PO BEDTIME Qty: 30 0RF acyclovir 400 mg tablet See Rx Instructions .ROUTE .COMPLEX Qty: 30 0RF Dose Instruction: TAKE 1 TABLET BY MOUTH DAILY Rx Instructions: TAKE 1 TABLET BY MOUTH DAILY; pt needs appt Ritalin 10 mg tablet 15 mg PO BID 30 Days Qty: 90 0RF omega-3 fatty acids 1,000 mg Capsule 3,000 mg PO DAILY cyanocobalamin (vitamin B-12) [Vitamin B-12] 1,000 mcg Tablet 1,000 mcg PO DAILY levothyroxine 25 mcg tablet 25 mcg PO QAM cholecalciferol (vitamin D3) [Vitamin D3] 25 mcg (1,000 unit) Capsule 25 mcg PO DAILY Gerard-Mag 200 mg calcium- 100 mg Tablet,Chewable 1 tab PO DAILY celecoxib 100 mg capsule 100 mg PO DAILY PRN (Reason: Pain) Miralax 17 gram powder in packet 17 g PO BID PRN (Reason: constipation) Qty: 14 0RF Discharge Orders: Discharge ED (Routine); Ordered 01/06/23 Ordered By: Mike Pardo Referrals: Chevy Walsh MD [Primary Care Provider] - Patient Instructions: Dental Abscess (ED), Opioid Safety, Pain Management Coding Level of Care Code ED Real Estate Acquisition Analyst for Anuj Ocasio
--- NOTE | 2023-01-09 10:01 | DCPLANNER ---
grocery manager had message to help patient find a dentist. grocery manager called phone number [phone], unable to speak with patient and unable to leave voicemail for patient.
== END 2023-01-06 23:53 | disposition home or self-care (01) ==
PROVIDERS: Emergency Provider Emergency Medicine; PCP Family Medicine
DX: K04.7 Periapical abscess without sinus (principal); K08.89 Other specified disorders of teeth and supporting structures; Z87.891 Personal history of nicotine dependence
CPT/HCPCS: 96372; 99284; J1885; J8540

== ENCOUNTER 2023-01-30 08:43 | Outpatient (CLI) | payer OTHER, MEDICAID, SELFPAY ==
[2022-11-11 11:35] VITALS: BP 123/78; BMI 25.3
--- NOTE | 2023-01-30 09:00 | XR_ITS ---
WS: [id number] Exam: XR abdomen min 2V [id number] Date/Time of Exam: 01/30/2023 9:01 AM Reason For Exam: RLQ ABDOMINAL PAIN Comparison 11/09/2022. No sign of bowel obstruction or pneumoperitoneum. No sign of organ enlargement. Significant amount re tained stool throughout the colon. Bony structures are intact. IMPRESSION: 1. Constipation. No acute abdominal process.
== END 2023-01-30 08:44 | disposition home or self-care (01) ==
PROVIDERS: PCP Family Medicine; Visit Provider Family Medicine
DX: K59.00 Constipation, unspecified (principal); R10.31 Right lower quadrant pain
CPT/HCPCS: 74019

== ENCOUNTER → 2023-02-02 13:31 | Outpatient (BNVA) | payer MEDICARE, MEDICAID, SELFPAY ==
[2022-11-11 11:35] VITALS: BP 123/78; BMI 25.3
== END ==
PROVIDERS: PCP Family Medicine; Referring Provider Family Medicine; Visit Provider Surgery
DX: R10.9 Unspecified abdominal pain (principal); G89.29 Other chronic pain; K43.9 Ventral hernia without obstruction or gangrene
CPT/HCPCS: 99204; 99214

== ENCOUNTER 2023-02-16 09:04 | Outpatient (CLI) | payer MEDICARE, MEDICAID, SELFPAY ==
[2022-11-11 11:35] VITALS: BP 123/78; BMI 25.3
--- NOTE | 2023-02-16 10:00 | CT_ITS ---
WS: [id number] CT ABDOMEN AND PELVIS WITH CONTRAST HISTORY: chronic abdominal pain/ abdominal wall hernia TECHNIQUE: Imaging performed of the abdomen and pelvis with IV contrast. Single phase imaging of the abdomen. Coronal and sagittal reformats are submitted. All CT scans at [facility] use at [address] one of these dose optimization techniques: automated exposure control; mA and/or kV adjustment per patient size (includes targeted exams where dose is matched to clinical indication); or iterative re construction. IV CONTRAST: Omnipaque 350; 100 mL IV. Oral contrast: Yes. DLP: 355.40 mGy.cm COMPARISON: 12/19/2019 Lower thorax: Lung bases are clear. Heart is normal size. No hiatal hernia. Liver/biliary system: Normal size with no intrahepatic dilatation. Gallbladder: Normal. No gallstones or wall thickening. No pericholecystic fluid. Pancreas: Normal size pancreas and pancreatic duct. No adjacent inflammation. Spleen: Normal size spleen. No mass or infarct. Adrenal glands: Normal. Right kidney: Nonobstructing 3 mm calcification upper pole RIGHT kidney. No renal mass or obstruction . Left kidney: Normal. Aorta: Moderate atherosclerosis with no aneurysm. Lymphadenopathy: None. Free fluid: None. GI tract: Marked fecal retention throughout the entire colon. Tortuosity of the colon due to long-ter m constipation. Normal appendix. No colitis. Abdominal wall: Unremarkable abdominal wall. No hernia. Pelvis: No free fluid or adenopathy within the pelvis. Bilateral pelvic venous congestion syndrome, L EFT greater than RIGHT. Bones: Advanced degenerative disc disease in the lower thoracic and lumbar spines. L5 anterolisthesis by 7 mm. IMPRESSION: 1. No acute abdominal or pelvic abnormalities. 2. No abdominal wall hernia. 3. Moderate chronic constipation. 4. Moderate atherosclerosis abdominal aorta. No aneurysm. 5. Chronic pelvic venous congestion.
[2023-02-16] MEDS: iohexol 350 mg/mL 500 mL Btl (per mL) IV (10:01)
[2023-02-16] MEDS: iohexol 350 mg/mL 500 mL Btl (per mL) PO (10:02)
[2023-02-16 10:19] LABS: Blood Urea Nitrogen 24 mg/dL (8-23); Glomerular Filtration Rate 99.4 mL/min (90-130)
== END 2023-02-16 09:05 | disposition home or self-care (01) ==
PROVIDERS: PCP Family Medicine; Visit Provider Surgery
DX: G89.29 Other chronic pain (principal); K43.9 Ventral hernia without obstruction or gangrene; R10.9 Unspecified abdominal pain
CPT/HCPCS: 74177; 82565; 84520; Q9967

== ENCOUNTER → 2023-02-24 11:00 | Outpatient (BNVA) | payer MEDICARE, MEDICAID, SELFPAY ==
[2023-02-23 16:27] VITALS: BP 123/78; BMI 25.3
== END ==
PROVIDERS: PCP Family Medicine; Visit Provider Surgery
DX: Z09 Encounter for follow-up examination after completed treatment for conditions other than malignant neoplasm (principal)
CPT/HCPCS: 99212

== ENCOUNTER 2023-05-12 14:58 | Outpatient (CLI) | payer MEDICARE, MEDICAID, SELFPAY ==
[2023-02-23 16:27] VITALS: BP 123/78; BMI 25.3
--- NOTE | 2023-05-12 15:10 | MR_ITS ---
WS: [id number] MRI BRAIN WITHOUT CONTRAST HISTORY: SHORT TERM MEMORY LOSS COMPARISON: None available. TECHNIQUE: Diffusion imaging, multiplanar T1, T2 and FLAIR imaging obtained. No evidence for acute infarct or hemorrhage. [place]-white matter differentiation is normal. No hippocam pal atrophy. No remote or acute infarcts are volume loss. Ventricles and extra-axial spaces are normal. No inferior displacement of cerebellar tonsils. The sella turcica and pituitary gland are unremarkabl e. Dural venous sinuses and [place] of [place] demonstrate no abnormality on this unenhanced studies. Paranasal sinuses: Clear. Mastoid air cells: Normal. Calvarium and scalp: Intact. Slight anterolisthesis of C2 on C3. Component of cervical stenosis suspected at the C3-4 level. IMPRESSION: 1. No prior infarct or significant atrophy. 2. No significant small vessel ischemic disease.
== END 2023-05-12 14:59 | disposition home or self-care (01) ==
LOC: RAD 14:59
PROVIDERS: PCP Family Medicine; Visit Provider Family Medicine
DX: R41.3 Other amnesia (principal)
CPT/HCPCS: 70551

== ENCOUNTER → 2023-07-17 07:56 | Outpatient (BNVA) | payer MEDICARE, MEDICAID, SELFPAY ==
[2023-02-23 16:27] VITALS: BP 123/78; BMI 25.3
== END ==
PROVIDERS: PCP Family Medicine; Referring Provider Family Medicine; Visit Provider Psychiatry & Neurology Neurology
DX: R41.3 Other amnesia (principal); R55 Syncope and collapse; G47.419 Narcolepsy without cataplexy
CPT/HCPCS: 99203

== ENCOUNTER 2023-08-15 11:09 | Outpatient (CLI) | payer MEDICARE, OTHER, SELFPAY ==
[2023-02-23 16:27] VITALS: BP 123/78; BMI 25.3
--- NOTE | 2023-08-15 11:19 | USCV_ITS ---
Ijeoma Schroeder Age: 67 Gender: F : 1955 Exam Date: 08/15/2023 12:00 Ordering Phys: Shaun Zazueta MD Technologist: CT Exam Location: [facility] [place] Indication: Risk Factors: Previous Vascular Surgery: Right Brachial BP: / Left Brachial BP: / Right Left Velocity (cm/s) Spectral Plaque Velocity (cm/s) Spectral Plaque Syst/Diast Broadening Syst/Diast Broadening 95.30/ 14.90 Prox CCA 112.80/ 24.90 128.00/25.90 Mid CCA 125.20/ 27.90 118.90/19.30 Distal CCA 104.90/ 22.30 50.30/ 14.80 Prox ICA 57.10 / 17.10 67.90/ 23.10 Mid ICA 69.70 / 20.60 54.10/ 17.40 Distal ICA 45.30 / 14.40 67.20 ECA 65.80 0.60 ICA/CCA 0.70 Antegrade Vertebral Antegrade 29.60/ 4.90 cm/s 52.20/ 16.30 cm/s Bi Subclavian Bi 121.1 107.3 0 0 CONCLUSIONS Right ICA stenosis <50%. Mild atheromatous plaque right carotid bulb/ICA. Left ICA stenosis <50%. Mild atheromatous plaque left carotid bulb/ICA. Normal antegrade Doppler flow noted in the left vertebral artery. Normal antegrade Doppler flow noted in the right vertebral artery. Tab Puckett MD (Electronically Signed) Final Date: 16 August 2023 09:18 S
== END 2023-08-15 11:10 | disposition home or self-care (01) ==
LOC: RAD 11:10
PROVIDERS: PCP Family Medicine; Visit Provider Psychiatry & Neurology Neurology
DX: R55 Syncope and collapse (principal); I65.23 Occlusion and stenosis of bilateral carotid arteries
CPT/HCPCS: 93880; 95812

== ENCOUNTER 2023-09-07 20:40 | Emergency (ER) | payer MEDICARE, MEDICAID, SELFPAY ==
[2023-02-23 16:27] VITALS: BP 123/78; BMI 25.3
[2023-09-07 20:56] VITALS: BP 137/80; PULSE 74; RESP 16; TEMP 36.6; O2SAT 98
[2023-09-07 23:21] LABS: Rapid Strep A Test Negative (Negative)
[2023-09-07 23:29] LABS: Influenza A by IFA negative (Negative); Influenza B by IFA negative (Negative); SARS Covid-2 Antigen negative (Negative)
--- NOTE | 2023-09-07 23:39 | ED_ITS ---
HPI - URI/Sore Throat General: Chief Complaint: Upper Respiratory Infection Stated Complaint: throat swollen deep cough weakness Time Seen by Provider: 09/07/23 21:05 History of Present Illness: 67-year-old female comes in today for co mplaints of sore throat for the last 2 to 3 days. Patient appears nontoxic. Patient appears no acute distress. Review of Systems General: Reports: 10 or more systems reviewed and unremarkable except in HPI and below PFSH ED PFSH: Medical History Drug abuse, nondependent Psychiatric care Trochanteric bursitis of left hip Narcotic use agreement exists Trochanteric bursitis of right hip Attention-deficit hyperactivity disorder, predominantly inattentive type Chronic posttraumatic stress disorder Chronic narcotic use Encounter for narcotic contract discussion Facet arthritis of lumbosacral region Hx of nephrolithotomy with removal of calculi Generalized anxiety disorder Major depressive disorder, recurrent, moderate Surgical History History of bunionectomy of both great toes History of renal stent History of radiofrequency ablation procedure for cardiac arrhythmia A-fib History of carpal tunnel surgery Family History Father CAD (coronary artery disease) Mother Alzheimer disease Social History Smoking and tobacco/nicotine status: former use of tobacco/nicotine Quit status (tobacco/nicotine): has quit using Year quit tobacco: 2013 Second hand smoke exposure: No Alcohol intake: former Substance/Drug Use: never Adopted: No Caregiver/support person: No Lives independently: Yes Household members: none Housing: Apartment Marital status: Single Number of children: 0 Highest education level completed: Some College, No Degree 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 Current occupational status: retired and disabled Current occupational exposures/hazards: No Pets and animals: Yes Pets & animals: dog(s) Leisure activites: sports, exercise and other Leisure activities details: kayak, likes being near water Do you think of yourself as: Straight/Heterosexual Current gender identity: Female Nunu/Latter-Day: Religious Special nunu needs: No Agree to transfusion: No Female Reproductive History: Date of menopause: 06/21/16 Physical Exam Const: COMMON NORMALS: alert HENMT: COMMON NORMALS: normocephalic HEAD & SCALP: normocephalic THROAT: posterior oropharynx abnormal erythema Neck/C-Spine: COMMON NORMALS: full ROM Resp: COMMON NORMALS: normal respiratory effort and clear to auscultation bilaterally AUSCULTATION: clear to auscultation bilaterally Cardio: COMMON NORMALS: regular rate RATE: regular rate Back/Pelvis: COMMON NORMALS: thoracic and lumbar spine normal to inspection Extremity: COMMON NORMALS: full ROM Neuro: SENSORIUM/ORIENTATION: Yes alert Skin: COMMON NORMALS: turgor normal GENERAL SKIN EXAM: turgor normal Course Vital Signs: Vital signs: Vital Signs Temperature 97.9 F 09/07/23 20:56 Pulse Rate 74 09/07/23 20:56 Respiratory Rate 16 09/07/23 20:56 Blood Pressure 137/80 09/07/23 20:56 Pulse Oximetry 98 09/07/23 20:56 Oxygen Delivery Me thod Room Air 09/07/23 20:56 MDM - URI/Sore Throat Medical Decision Making 67-year-old female comes in today for complaints of sore throat and cough. On exam patient appears nontoxic. Posterior pharynx is slightly erythematous. Lungs are clear to auscultation. Vital signs are normal. Differential diagnosis includes but not limited to upper respiratory infection, strep pharyngitis, postnasal drip. COVID, influenza, and strep test were negative. Reviewed exam with patient with recommendations for treatment and follow-up. Patient be placed on cephalexin 500 twice a day for 7 days. Patient was also given 1 dose of dexamethasone. Patient reports understanding of care plan need for follow-up or return to the ER. Lab Data Laboratory Results Influenza Type A Ag negative (Negative) 09/07/23 23:08 Influenza Type B Ag negative (Negative) 09/07/23 23:08 SARS-CoV-2 Ag (Rapid) negative (Negative) 09/07/23 23:08 Group A Strep Rapid Negative (Negative) 09/07/23 23:08 No radiology studies performed this visit Discharge Plan Discharge Patient Disposition: Home Clinical Impression: Pharyngitis Qualifiers: Pharyngitis/tonsillitis etiology: unspecified etiology Qualified Code(s): J02.9 - Acute pharyngitis, unspecified Condition: Stable Prescriptions: New cephalexin 500 mg capsule 500 mg PO BID 7 Days Qty: 14 0RF No Action acetaminophen [Tylenol Extra Strength] 500 mg tablet 500 mg PO Q6H PRN aripiprazole [Abilify] 2 mg tablet 2 mg PO DAILY Qty: 30 1RF bupropion HCl [Wellbutrin SR] 200 mg tablet sustained-release 12 hr 200 mg PO BID Qty: 180 0RF duloxetine [Cymbalta] 60 mg capsule,delayed release(DR/EC) 120 mg PO DAILY Qty: 180 0RF meclizine 25 mg tablet 25 mg PO BID PRN (Reason: Vertigo) pantoprazole 40 mg tablet,delayed release (DR/EC) 40 mg PO DAILY Qty: 180 0RF gabapentin 400 mg capsule 400 mg PO TID Qty: 90 0RF metoprolol succinate 25 mg tablet extended release 24 hr 25 mg PO BEDTIME Qty: 30 0RF acyclovir 400 mg tablet See Rx Instructions .ROUTE .COMPLEX Qty: 30 0RF Dose Instruction: TAKE 1 TABLET BY MOUTH DAILY Rx Instructions: TAKE 1 TABLET BY MOUTH DAILY; pt needs appt magnesium citrate Solution 150 ml PO DAILY Qty: 296 0RF Ritalin 10 mg tablet 15 mg PO BID 30 Days Qty: 90 0RF omega-3 fatty acids 1,000 mg Capsule 3,000 mg PO DAILY cyanocobalamin (vitamin B-12) [Vitamin B-12] 1,000 mcg Tablet 1,000 mcg PO DAILY levothyroxine 25 mcg tablet 25 mcg PO QAM cholecalciferol (vitamin D3) [Vitamin D3] 25 mcg (1,000 unit) Capsule 25 mcg PO DAILY Gerard-Mag 200 mg calcium- 100 mg Tablet,Chewable 1 tab PO DAILY Discharge Orders: Discharge ED (Routine); Ordered 09/07/23 Ordered By: Te Ochoa Referrals: Chevy Walsh MD [Primary Care Provider] - Discharge Diet: Usual diet Discharge Activity: Increase activity as tolerated Patient Instructions: Pharyngitis (ED) Activity Restrictions/Additional Instructions: Drink plenty of water and fluids. Use acetaminophen or ibuprofen as needed for pain. Follow-up with primary care for further instructions. Return to ED for new concerns or worsening symptoms. Coding Level of Care Code ED Local Company Refrigerated Truck Driver for Anuj Ocasio
[2023-09-07] MEDS: dexamethasone 10 mg/mL INJ IM (23:53)
[2023-09-07] MEDS: cephALEXin 500 mg Capsule PO (23:54)
[2023-09-08 00:17] VITALS: BP 137/80; PULSE 74; RESP 16; TEMP 36.6; O2SAT 98
== END 2023-09-08 00:18 | disposition home or self-care (01) ==
PROVIDERS: Emergency Provider Nurse Practitioner Family; PCP Family Medicine
DX: J02.9 Acute pharyngitis, unspecified (principal); Z11.52 Encounter for screening for COVID-19; Z87.891 Personal history of nicotine dependence
CPT/HCPCS: 87081; 87426; 87804; 87880; 96372; 99284; J1100

== ENCOUNTER 2023-10-10 08:49 | Outpatient (CLI) | payer MEDICARE, MEDICAID, SELFPAY ==
[2023-02-23 16:27] VITALS: BP 123/78; BMI 25.3
--- NOTE | 2023-10-10 08:55 | XRR_ITS ---
PROCEDURE INFORMATION: Exam: XR Left Wrist Exam date and time: 10/10/2023 9:01 AM Age: 67 years old Clinical indication: Left; Patient HX: Fell 1 yr ago, chronic lt wrist pain since; Additional info: Chronic pain in left wrist TECHNIQUE: Imaging protocol: Radiologic exam of the left wrist. Views: 3 or more views. COMPARISON: CR XR wrist LT min 3V* [id number] 07/16/2021 9:59 PM FINDINGS: Bones/joints: Normal. Soft tissues: Normal. XR/XR wrist LT min 3V* [id number] IMPRESSION: No acute findings.
--- NOTE | 2023-10-10 08:55 | XRR_ITS ---
PROCEDURE INFORMATION: Exam: XR Chest Exam date and time: 10/10/2023 9:01 AM Age: 67 years old Clinical indication: Cough; Patient HX: HX of melanoma; Additional info: Chronic cough/mold exposure TECHNIQUE: Imaging protocol: Radiologic exam of the chest. Views: 2 views. COMPARISON: CT lung screening [id number] 07/08/2022 10:27 AM FINDINGS: Lungs: Unremarkable. No consolidation. Pleural spaces: Unremarkable. No pleural effusion. No pneumothorax. Heart/Mediastinum: Unremarkable. No cardiomegaly. Vasculature: Calcific disease of the abdominal aorta. Bones/joints: Unremarkable. XR/XR chest 2V* [id number] IMPRESSION: No acute findings.
[2023-10-10 09:26] LABS: Magnesium 2.1 mg/dL (1.7-2.3)
[2023-10-10 09:43] LABS: 25 Hydroxy Vitamin D 55 ng/mL (30-100)
[2023-10-19 09:25] LABS: Apolipoprotein E (ApoE) Isofor E3/E4
== END 2023-10-10 08:50 | disposition home or self-care (01) ==
LOC: LAB 08:52
PROVIDERS: Absent Provider Psychiatry & Neurology Neurology; PCP Family Medicine; Visit Provider Family Medicine
DX: M25.532 Pain in left wrist (principal); R05.3 Chronic cough; Z77.120 Contact with and (suspected) exposure to mold (toxic); R41.3 Other amnesia; Z79.891 Long term (current) use of opiate analgesic; Z85.820 Personal history of malignant melanoma of skin
CPT/HCPCS: 36415; 71046; 73110; 82306; 82542; 83735

== ENCOUNTER 2023-11-20 15:30 | Outpatient (CLI) | payer MEDICARE, MEDICAID, SELFPAY ==
[2023-02-23 16:27] VITALS: BP 123/78; BMI 25.3
--- NOTE | 2023-11-20 15:41 | MM_ITS ---
WS: [id number] BILATERAL SCREENING DIGITAL TOMOSYNTHESIS MAMMOGRAM WITH CAD HISTORY: SCREEN COMPARISON: 10/10/2022, 04/22/2020 Bilateral CC and MLO views with tomosynthesis and synthetic mammography submitted. Computer aided det ection analyzed. Breast composition: The breasts are heterogeneously dense, which may obscure small masses. No suspici ous masses, microcalcifications or architectural distortion. Benign calcifications in each breast. No interval change. MM/[place] [id number] IMPRESSION: BI-RADS: 2-Benign FOLLOW UP: 1 Year Follow-up
== END 2023-11-20 15:31 | disposition home or self-care (01) ==
PROVIDERS: PCP Family Medicine; Visit Provider Family Medicine
DX: Z12.31 Encounter for screening mammogram for malignant neoplasm of breast (principal); F90.0 Attention-deficit hyperactivity disorder, predominantly inattentive type; F33.1 Major depressive disorder, recurrent, moderate; F41.1 Generalized anxiety disorder; Z79.899 Other long term (current) drug therapy; R92.333 Mammographic heterogeneous density, bilateral breasts; R92.1 Mammographic calcification found on diagnostic imaging of breast
CPT/HCPCS: 77063; 77067; 80061; 83036

== ENCOUNTER 2023-11-28 20:00 | Outpatient (CLI) | payer MEDICARE, MEDICAID, SELFPAY ==
[2023-02-23 16:27] VITALS: BP 123/78; BMI 25.3
[2023-11-22 14:47] VITALS: BP 145/79; BMI 25.7
== END 2023-11-28 20:01 | disposition home or self-care (01) ==
PROVIDERS: PCP Family Medicine; Visit Provider Psychiatry & Neurology Neurology
DX: G47.33 Obstructive sleep apnea (adult) (pediatric) (principal); G47.36 Sleep related hypoventilation in conditions classified elsewhere
CPT/HCPCS: 95810

== ENCOUNTER → 2023-11-30 14:36 | Outpatient (BNVA) | payer MEDICARE, MEDICAID, SELFPAY ==
[2023-11-22 14:47] VITALS: BP 145/79; BMI 25.7
== END ==
PROVIDERS: PCP Family Medicine; Visit Provider Podiatrist Foot & Ankle Surgery
DX: M79.671 Pain in right foot (principal); M79.672 Pain in left foot; M21.611 Bunion of right foot; M21.612 Bunion of left foot
CPT/HCPCS: 73630; 99203

== ENCOUNTER 2024-01-02 10:47 | Outpatient (CLI) | payer MEDICARE, MEDICAID, SELFPAY ==
[2023-11-22 14:47] VITALS: BP 145/79; BMI 25.7
== END 2024-01-02 10:48 | disposition home or self-care (01) ==
LOC: SPT 10:48
PROVIDERS: PCP Nurse Practitioner Family; Visit Provider Podiatrist Foot & Ankle Surgery
DX: Z46.89 Encounter for fitting and adjustment of other specified devices (principal); M79.672 Pain in left foot; M21.611 Bunion of right foot; M21.612 Bunion of left foot
CPT/HCPCS: 97760; L3030

== ENCOUNTER → 2024-02-07 13:00 | Outpatient (BNVA) | payer MEDICARE, MEDICAID, SELFPAY ==
[2023-11-22 14:47] VITALS: BP 145/79; BMI 25.7
== END ==
PROVIDERS: PCP Nurse Practitioner Family; Visit Provider Psychiatry & Neurology Neurology
DX: R55 Syncope and collapse (principal); R41.3 Other amnesia
CPT/HCPCS: 99212

== ENCOUNTER 2024-02-07 19:13 | Emergency (ER) | payer MEDICARE, MEDICAID, SELFPAY ==
[2023-11-22 14:47] VITALS: BP 145/79; BMI 25.7
[2024-02-07 19:28] VITALS: BP 164/78; PULSE 77; RESP 16; TEMP 36.8; O2SAT 98; BMI 25.2
[2024-02-07 19:58] VITALS: PULSE 78; RESP 16; O2SAT 98
--- NOTE | 2024-02-07 20:01 | W.ED.ANIMALB ---
HPI - Animal Bite General: Chief Complaint: Animal Bite Stated Complaint: cat scratch odd sensations rabies? no skin tear Time Seen by Provider: 02/07/24 19:35 Source: patient Mode of arrival: ambulatory Limitations: no limitations History of Present Illness: Patient is a 68-year-old female presenting to the emergency department complaining of a animal related injury prior to arrival. Patient states she feeds a lot of outside cats, and one of them attacked her on her right wrist. She states that she thinks she was bit, however there is no evidence of bite or scratch. She states that she is having weird sensations and numbing extending up and down her arm, but but also states that she thinks she is making things up in her head. She states that she googled rabies and was concerned that this may be the reason for her symptoms. She is very anxious at time of examination, with no signs of injury whatsoever to her right arm. Tetanus is up-to-date. No other symptoms reported at this time. MD complaint: animal-related injury Onset (ago): minute(s) Animal: cat Description of animal: wild animal and appeared well Mechanism: other (Unknown) Location - Extremities: Right: forearm Associated symptoms: Deny chills, fever(s) or headache(s) Related Data Home Medications Medication Instructions Recorded Confirmed meclizine 25 mg tablet 25 mg PO BID PRN Vertigo 11/10/21 02/07/24 cholecalciferol (vitamin D3) 25 25 mcg PO DAILY 01/26/22 02/07/24 mcg (1,000 unit) capsule (Vitamin D3) cyanocobalamin (vitamin B-12) 1,000 mcg PO DAILY 01/26/22 02/07/24 1,000 mcg tablet (Vitamin B-12) omega-3 fatty acids 1,000 mg 3,000 mg PO DAILY 01/26/22 02/07/24 capsule evolocumab 140 mg/mL subcutaneous mg SUBCUT 01/31/24 02/07/24 pen injector (Mario Oliveros) tizanidine 2 mg tablet mg PO 02/07/24 02/07/24 Previous Rx's Medication Instructions Recorded pantoprazole 40 mg tablet,delayed 40 mg PO DAILY #180 tabs 08/31/21 release metoprolol succinate 25 mg 25 mg PO BEDTIME #30 tabs 04/12/22 tablet,extended release 24 hr acyclovir 400 mg tablet See Rx Instructions .Route 08/05/22 .COMPLEX #30 tabs sole supports #1 ea 11/30/23 celecoxib 200 mg capsule (Celebrex) 200 mg PO DAILY #30 caps 12/21/23 methylphenidate HCl 20 mg tablet 20 mg PO BID 30 days #60 tabs 01/24/24 aripiprazole 5 mg tablet (Abilify) 5 mg PO DAILY #30 tabs 01/25/24 bupropion HCl 200 mg tablet,12 hr 200 mg PO BID #180 tabs 01/25/24 sustained-release (Wellbutrin SR) duloxetine 60 mg capsule,delayed 120 mg (2 x 60 mg) PO DAILY #180 01/25/24 release (Cymbalta) caps Allergies Allergy/AdvReac Type Severity Reaction Status Date / Time Fbatgwr-YWA-GeO Reductase Allergy Unknown Verified 02/07/24 11:01 Inhibitor [Cpumskp-Wiq-Bns Reductase Inhibitor] Review of Systems General: Reports: 10 or more systems reviewed and unremarkable except in HPI and below Const: Denies: fever(s) or chills Card: Denies: chest pain Resp: Denies: dyspnea GI: Denies: abdominal pain, nausea, vomiting or diarrhea Musc: Denies: extremity pain or joint pain Skin/Breast: Reports: other (Animal bite/scratch to right upper extremity); Denies: rash, skin pain, skin tenderness or new lesions Neuro: Reports: numbness in extremities (RUE); Denies: headache(s) Psych: Reports: anxiety PFSH ED PFSH: Medical History Drug abuse, nondependent Psychiatric care Trochanteric bursitis of left hip Narcotic use agreement exists Trochanteric bursitis of right hip Attention-deficit hyperactivity disorder, predominantly inattentive type Chronic posttraumatic stress disorder Chronic narcotic use Encounter for narcotic contract discussion Facet arthritis of lumbosacral region Hx of nephrolithotomy with removal of calculi Generalized anxiety disorder Major depressive disorder, recurrent, moderate Surgical History History of bunionectomy of both great toes History of renal stent History of radiofrequency ablation procedure for cardiac arrhythmia A-fib History of carpal tunnel surgery Family History Father CAD (coronary artery disease) Mother Alzheimer disease Social History Smoking and tobacco/nicotine status: never used tobacco/nicotine Quit status (tobacco/nicotine): has quit using Year quit tobacco: 2012 Second hand smoke exposure: No Alcohol intake: former Substance/Drug Use: never Adopted: No Caregiver/support person: No Lives independently: Yes Household members: none Housing: Apartment Marital status: Single Number of children: 0 Highest education level completed: Some College, No Degree Education level details: [employer] service: No Current occupational status: retired and disabled Current occupational exposures/hazards: No Pets and animals: Yes Pets & animals: dog(s) Leisure activites: sports, exercise and other Leisure activities details: kayak, likes being near water Do you think of yourself as: Straight/Heterosexual Current gender identity: Female Nunu/Anglican: Mandaen Special nunu needs: No Agree to transfusion: No Female Reproductive History: Para: 0 Spontaneous abortions: No Date of menopause: 06/21/16 Physical Exam Const: COMMON NORMALS: no acute distress, average body habitus, patient oriented x3, no limitations, healthy appearing, alert and well nourished GENERAL APPEARANCE: anxious HENMT: COMMON NORMALS: normocephalic and atraumatic HEAD & SCALP: normocephalic and atraumatic Neck/C-Spine: COMMON NORMALS: full ROM, no lymphadenopathy, supple and no meningeal signs Resp: COMMON NORMALS: normal respiratory effort, No use of accessory muscles and clear to auscultation bilaterally AUSCULTATION: clear to auscultation bilaterally Cardio: COMMON NORMALS: regular rate and regular rhythm RATE: regular rate RHYTHM: regular rhythm Extremity: COMMON NORMALS: full ROM and capillary refill normal NARRATIVE EXTREMITY EXAM: Distal neurovascular status intact. Neuro: COMMON NORMALS: patient oriented x3 SENSORIUM/ORIENTATION: Yes alert MENINGEAL SIGNS: Yes no meningeal signs Skin: COMMON NORMALS: no rashes or lesions noted, no wounds and turgor normal NARRATIVE SKIN EXAM: There is no evidence whatsoever of animal related injury to reported site. No puncture wound, abrasion, skin tearing, or any drawing blood. 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 Prior to the bite there have been no abnormalities noted with the cat, she states that she is able to evaluate this At home. There was no evidence of injury to her right upper extremity, and she was very concerned of what she googled. I had educated the patient on rabies inoculation and reasons to return to begin vaccination series, there is no need to do this at this time as she can watch the cat and there is no evidence for injury. No radiology studies performed this visit Discharge Plan Discharge Patient Disposition: Home Clinical Impression: Animal scratch Condition: Stable Prescriptions: No Action Repatha SureClick 140 mg/mL pen injector SUBCUT (DME) sole supports See Rx Instructions .Route .MEDSUPPLY Qty: 1 0RF Rx Instructions: As directed celecoxib [Celebrex] 200 mg capsule 200 mg PO DAILY Qty: 30 2RF meclizine 25 mg tablet 25 mg PO BID PRN (Reason: Vertigo) aripiprazole [Abilify] 5 mg tablet 5 mg PO DAILY Qty: 30 1RF bupropion HCl [Wellbutrin SR] 200 mg tablet sustained-release 12 hr 200 mg PO BID Qty: 180 0RF duloxetine [Cymbalta] 60 mg capsule,delayed release(DR/EC) 120 mg PO DAILY Qty: 180 0RF tizanidine 2 mg tablet PO pantoprazole 40 mg tablet,delayed release (DR/EC) 40 mg PO DAILY Qty: 180 0RF metoprolol succinate 25 mg tablet extended release 24 hr 25 mg PO BEDTIME Qty: 30 0RF acyclovir 400 mg tablet See Rx Instructions .ROUTE .COMPLEX Qty: 30 0RF Dose Instruction: TAKE 1 TABLET BY MOUTH DAILY Rx Instructions: TAKE 1 TABLET BY MOUTH DAILY; pt needs appt methylphenidate HCl 20 mg tablet 20 mg PO BID 30 Days Qty: 60 0RF omega-3 fatty acids 1,000 mg Capsule 3,000 mg PO DAILY cyanocobalamin (vitamin B-12) [Vitamin B-12] 1,000 mcg Tablet 1,000 mcg PO DAILY cholecalciferol (vitamin D3) [Vitamin D3] 25 mcg (1,000 unit) Capsule 25 mcg PO DAILY Discharge Orders: Discharge ED (Routine); Ordered 02/07/24 Ordered By: Mendez iXe Referrals: Chevy Walsh MD [Primary Care Provider] - Discharge Diet: Usual diet Discharge Activity: Resume usual activity Patient Instructions: Pain Management Activity Restrictions/Additional Instructions: Monitor the cat closely for any neurological signs or symptoms as discussed. If you see anything abnormal with quarantine animal, please return immediately to the emergency department to begin vaccination series. Coding Level of Care Code ED Ac[employer]acking [employer]er for Anuj Ocasio
== END 2024-02-07 20:05 | disposition home or self-care (01) ==
PROVIDERS: Emergency Provider Physician Assistant; PCP Family Medicine
DX: Z03.89 Encounter for observation for other suspected diseases and conditions ruled out (principal); W55.09XA Other contact with cat, initial encounter; Z87.891 Personal history of nicotine dependence
CPT/HCPCS: 99281

== ENCOUNTER 2024-02-19 10:32 | Outpatient (RCR) | payer MEDICARE, MEDICAID, SELFPAY ==
[2023-11-22 14:47] VITALS: BP 145/79; BMI 25.7
== END 2024-02-19 23:59 | disposition home or self-care (01) ==
LOC: SPT 10:32
PROVIDERS: PCP Anesthesiology; Visit Provider Nurse Practitioner Family
DX: M54.50 Low back pain, unspecified (principal)
CPT/HCPCS: 97161

== ENCOUNTER 2024-02-20 06:00 | Outpatient (RCR) | payer MEDICARE, MEDICAID, SELFPAY ==
[2023-11-22 14:47] VITALS: BP 145/79; BMI 25.7
== END 2024-03-21 23:59 | disposition home or self-care (01) ==
LOC: SPT 06:00
PROVIDERS: PCP Anesthesiology; Visit Provider Nurse Practitioner Family
DX: M54.50 Low back pain, unspecified (principal)
CPT/HCPCS: 97110

== ENCOUNTER 2024-03-22 06:00 | Outpatient (RCR) | payer MEDICARE, SELFPAY ==
[2023-11-22 14:47] VITALS: BP 145/79; BMI 25.7
== END 2024-04-20 23:59 | disposition home or self-care (01) ==
LOC: SPT 06:00
PROVIDERS: Family Provider Nurse Practitioner Family; PCP Anesthesiology; Visit Provider Nurse Practitioner Family
DX: M54.50 Low back pain, unspecified (principal)
CPT/HCPCS: 97110; 97164

== ENCOUNTER → 2024-03-28 14:30 | Outpatient (BNVA) | payer MEDICARE, SELFPAY ==
[2023-11-22 14:47] VITALS: BP 145/79; BMI 25.7
== END ==
PROVIDERS: PCP Anesthesiology; Visit Provider Internal Medicine Cardiovascular Disease
DX: I48.91 Unspecified atrial fibrillation (principal); R03.0 Elevated blood-pressure reading, without diagnosis of hypertension; F33.1 Major depressive disorder, recurrent, moderate; E78.5 Hyperlipidemia, unspecified; Z87.891 Personal history of nicotine dependence
CPT/HCPCS: 99204

== ENCOUNTER 2024-04-04 15:15 | Outpatient (CLI) | payer MEDICARE, SELFPAY ==
[2023-11-22 14:47] VITALS: BP 145/79; BMI 25.7
--- NOTE | 2024-04-04 15:28 | XR_ITS ---
WS: [id number] Chest 2 views, 04/04/2024 Clinical Data: COUGH Comparison: Two-view chest, 10/10/2023 Findings: No nodules, masses or effusions are seen. The heart is normal. The pulmonary vascularity is not increased. No pneumonia or pneumothorax is seen. The aortic arch and descending thoracic aorta s how tortuosity. There is a minimal dextroscoliosis of the thoracic spine. XR/XR chest 2V* [id number] Impression: Atherosclerosis.
== END 2024-04-04 15:16 | disposition home or self-care (01) ==
PROVIDERS: Family Provider Nurse Practitioner Family; PCP Anesthesiology; Visit Provider Nurse Practitioner Family
DX: R05.8 Other specified cough (principal); Q25.46 Tortuous aortic arch
CPT/HCPCS: 71046

== ENCOUNTER 2024-04-21 06:00 | Outpatient (RCR) | payer MEDICARE, MEDICAID, SELFPAY ==
[2023-11-22 14:47] VITALS: BP 145/79; BMI 25.7
== END 2024-05-21 23:59 | disposition home or self-care (01) ==
LOC: SPT 06:00
PROVIDERS: Family Provider Nurse Practitioner Family; PCP Anesthesiology; Visit Provider Nurse Practitioner Family
DX: M54.50 Low back pain, unspecified (principal)
CPT/HCPCS: 97110

== ENCOUNTER 2024-04-23 20:00 | Outpatient (CLI) | payer MEDICARE, SELFPAY ==
[2023-11-22 14:47] VITALS: BP 145/79; BMI 25.7
== END 2024-04-23 20:01 | disposition home or self-care (01) ==
LOC: SLEEP 23:21
PROVIDERS: Family Provider Nurse Practitioner Family; PCP Anesthesiology; Visit Provider Family Medicine
DX: G47.33 Obstructive sleep apnea (adult) (pediatric) (principal); Z99.89 Dependence on other enabling machines and devices
CPT/HCPCS: 95811

== ENCOUNTER → 2024-06-17 13:30 | Outpatient (BNVA) | payer MEDICARE, MEDICAID, SELFPAY ==
[2023-11-22 14:47] VITALS: BP 145/79; BMI 25.7
== END ==
PROVIDERS: Family Provider Nurse Practitioner Family; PCP Anesthesiology; Visit Provider Psychiatry & Neurology Neurology
DX: R55 Syncope and collapse (principal); R41.3 Other amnesia
CPT/HCPCS: 36415; 83520; 99212

== ENCOUNTER 2024-08-01 15:02 | Outpatient (RCR) | payer MEDICARE, MEDICAID, SELFPAY ==
[2023-11-22 14:47] VITALS: BP 145/79; BMI 25.7
== END 2024-08-19 23:59 | disposition home or self-care (01) ==
LOC: SPT 15:02
DX: M16.0 Bilateral primary osteoarthritis of hip (principal)
CPT/HCPCS: 97110; 97161

== ENCOUNTER 2024-08-07 12:16 | Outpatient (CLI) | payer MEDICARE, MEDICAID, SELFPAY ==
[2023-11-22 14:47] VITALS: BP 145/79; BMI 25.7
--- NOTE | 2024-08-07 12:24 | XRR_ITS ---
PROCEDURE INFORMATION: Exam: XR Chest Exam date and time: 08/07/2024 12:46 PM Age: 68 years old Clinical indication: Cough for the last 3/4 days. Pain in the chest and PT states she has trouble breathing at night. Pain is more in the center of the chest, HX of melanoma; Additional info: Acute cough TECHNIQUE: Imaging protocol: Radiologic exam of the chest. Views: 2 views. COMPARISON: CR (CHEST, ) 01/26/2022 1:01 AM FINDINGS: Lungs: Unremarkable. No consolidation. Pleural spaces: Unremarkable. No pleural effusion. No pneumothorax. Heart/Mediastinum: Unremarkable. No cardiomegaly. Bones/joints: Unremarkable. XR/XR chest 2V* [id number] IMPRESSION: No acute findings.
== END 2024-08-07 12:17 | disposition home or self-care (01) ==
PROVIDERS: PCP Family Medicine; Visit Provider Nurse Practitioner Family
DX: R05.1 Acute cough (principal)
CPT/HCPCS: 71046

== ENCOUNTER 2024-08-14 13:44 | Outpatient (CLI) | payer MEDICARE, MEDICAID, SELFPAY ==
[2023-11-22 14:47] VITALS: BP 145/79; BMI 25.7
== END 2024-08-14 13:45 | disposition home or self-care (01) ==
LOC: SLEEP 13:46
PROVIDERS: Family Provider Nurse Practitioner Family; PCP Anesthesiology; Visit Provider Specialist
DX: G47.33 Obstructive sleep apnea (adult) (pediatric) (principal)
CPT/HCPCS: 94762

== ENCOUNTER → 2024-09-12 17:12 | Outpatient (BNVA) | payer MEDICARE, MEDICAID, SELFPAY ==
[2023-11-22 14:47] VITALS: BP 145/79; BMI 25.7
== END ==
PROVIDERS: Family Provider Nurse Practitioner Family; PCP Anesthesiology; Visit Provider Registered Nurse Neonatal Intensive Care
DX: N39.0 Urinary tract infection, site not specified (principal)
CPT/HCPCS: 81000; 87086